=== PATIENT | female | born 1940 | race Hispanic/Latino ===

== ENCOUNTER 2017-12-10 16:41 | Inpatient (IN) | payer MEDICARE ==
[2017-12-10 20:06] LABS: Basophils # (Auto) 0.1 K/mm3 (0.0-0.1); Basophils % (Auto) 0.8 % (0.0-1.8); Eosinophils # (Auto) 0.2 K/mm3 (0.0-0.4); Hematocrit 34.8 % (30.3-42.9); Hemoglobin 11.4 gm/dl (10.1-14.3); Lymphocytes % (Auto) 26.1 % (13.4-35.0); Mean Corpuscular HGB Conc 33 % (30-34); Mean Corpuscular Hemoglobin 29 pg (28-32); Mean Corpuscular Volume 87 fl (79-97); Monocytes # (Auto) 0.4 K/mm3 (0.0-0.8); Monocytes % (Auto) 5.9 % (0.0-7.3); Red Blood Count 4.01 M/mm3 (3.65-5.03); Red Cell Distribution Width 14.4 % (13.2-15.2)
[2017-12-10 20:08] LABS: Platelet Count 152 K/mm3 (140-440)
[2017-12-10 20:12] LABS: BUN/Creatinine Ratio 39; Blood Urea Nitrogen 31 mg/dL (7-17); Calcium 9.6 mg/dL (8.4-10.2); Hemolysis Index 8
[2017-12-10 20:17] LABS: INR 0.92 (0.87-1.13)
[2017-12-10 20:29] LABS: Erythrocyte Sedimentation Rate 29 mm/Hr (0-20)
[2017-12-10] MEDS ORDERED: CLEOCIN 600 MG/50 mL 600 MG/50 ML BAG IV ONE (20:33)
[2017-12-10] MEDS ORDERED: PERCOCET 5/325 PO ONE (20:33)
--- NOTE | 2017-12-10 21:05 | Emergency Department Report ---
ED Extremity Problem HPI - General Chief complaint: Extremity Injury, Lower Stated complaint: RT LEG PAIN Time Seen by Provider: 12/10/17 19:15 Source: patient Mode of arrival: Wheelchair Limitations: No Limitations - History of Present Illness Initial comments: 77-year-old female with a past medical history diabetes, chronic leg ulcer, previous CVA, GERD, and CAD with stent to hospital complains of pain to right chronic leg ulcer. Patient has had a right lateral distal leg ulcer for the past 2 years. Patient was receiving wound care at home via home health nurse 3- 4 times a week. This service was discontinued by her insurance company and for the past week patient has been dressing the wound herself. She accidentally bumped her leg resulting in significant pain not improved with her home medication. Patient states she has noticed a mild odorous smell to the wound for at least 3 weeks. She denies fever or persistent hyperglycemia. - Related Data Home Medications Medication Instructions Recorded Confirmed Last Taken Aspirin [Aspirin BABY CHEW TAB] 81 mg PO QDAY 09/06/14 12/10/17 12/10/17 Insulin NPH/Regular [Novolin 70/30] 22 units SUB-Q QPM 09/06/14 12/10/17 Insulin NPH/Regular [Novolin 70/30] 26 units SUB-Q QAM 09/06/14 12/10/17 Levothyroxine [Synthroid] 75 mcg PO QDAY 09/06/14 12/10/17 12/10/17 Lisinopril [Zestril TAB] 5 mg PO QDAY 09/06/14 12/10/17 12/10/17 Simvastatin 20 mg PO QDAY 09/06/14 12/10/17 12/10/17 Previous Rx's Medication Instructions Recorded Last Taken Type Ranitidine HCl [Ranitidine] 300 mg PO QPM #30 tablet 09/06/14 12/10/17 Rx Allergies Allergy/AdvReac Type Severity Reaction Status Date / Time latex Allergy Itching Verified 12/10/17 17:03 ED Review of Systems ROS: Stated complaint: RT LEG PAIN Other details as noted in HPI Comment: All other systems reviewed and negative Other: Constitutional: No fevers chills Eyes: No eye pain visual changes ENT: No ear pain or throat pain Neck: Denies pain Respiratory: Denies cough wheezing shortness of breath Cardiovascular: Denies chest pain, palpitations, syncope GI: Denies abdominal pain, nausea, vomiting, diarrhea : Denies dysuria, urinary frequency, or urgency Musculoskeletal: Denies back pain, joint swelling Skin: as per hpi Neurologic: Denies headache, numbness, weakness Psychiatric: Denies suicidal ideation, hallucinations ED Past Medical Hx - Past Medical History Hx Hypertension: Yes Hx CVA: Yes ("LIGHT STROKE") Hx Diabetes: Yes Hx GERD: Yes Hx Arthritis: Yes Additional medical history: "HEART PT" - Surgical History Hx Coronary Stent: Yes Hx Cholecystectomy: Yes Additional Surgical History: HERNIA REPAIR. HYSTERECTOMY - Social History Smoking Status: Never Smoker Substance Use Type: None - Medications Home Medications: Home Medications Medication Instructions Recorded Confirmed Last Taken Type Aspirin [Aspirin BABY CHEW TAB] 81 mg PO QDAY 09/06/14 12/10/17 12/10/17 History Insulin NPH/Regular [Novolin 70/30] 22 units SUB-Q QPM 09/06/14 12/10/17 History Insulin NPH/Regular [Novolin 70/30] 26 units SUB-Q QAM 09/06/14 12/10/17 History Levothyroxine [Synthroid] 75 mcg PO QDAY 09/06/14 12/10/17 12/10/17 History Lisinopril [Zestril TAB] 5 mg PO QDAY 09/06/14 12/10/17 12/10/17 History Ranitidine HCl [Ranitidine] 300 mg PO QPM #30 tablet 09/06/14 12/10/17 12/10/17 Rx Simvastatin 20 mg PO QDAY 09/06/14 12/10/17 12/10/17 History ED Physical Exam - General Limitations: No Limitations - Other Other exam information: General: No limitations, patient is alert in no acute distress Head exam: Atraumatic, normocephalic Eyes exam: Normal appearance, ENT: Moist mucous membrane, normal oropharynx Neck exam: Normal inspection, full range of motion, no meningismus nontender Respiratory exam: Clear to auscultation bilateral, no wheezes, rales, crackles Cardiovascular: Normal rate and rhythm, normal heart sounds Abdomen: Soft, nondistended, and nontender, with normal bowel sounds, no rebound, or guarding Extremity: Right lateral distal leg ulcer. Bilateral edema Back: Normal Inspection, full range of motion, no tenderness Neurologic: Alert, oriented x3, cranial nerves intact, no motor or sensory deficit Psychiatric: normal affect, normal mood Skin: Right lateral distal right leg ulceration stays to 8 x 5 cm in size with greenish malodorous exudate and surrounding erythema ED Course Vital Signs 12/10/17 12/10/17 12/10/17 17:02 21:00 22:12 Temperature 98.1 F 97.7 F Pulse Rate 86 67 Respiratory 22 16 16 Rate Blood Pressure 149/78 Blood Pressure 154/69 [Left] O2 Sat by Pulse 99 100 100 Oximetry 12/10/17 23:50 Temperature Pulse Rate 82 Respiratory 16 Rate Blood Pressure Blood Pressure 132/60 [Left] O2 Sat by Pulse Oximetry ED Medical Decision Making - Lab Data Result diagrams: 12/10/17 19:40 12/10/17 19:40 Lab Results 12/10/17 12/10/17 12/10/17 Range/Units 19:40 19:40 19:40 WBC 7.5 (4.5-11.0) K/mm3 RBC 4.01 (3.65-5.03) M/mm3 Hgb 11.4 (10.1-14.3) gm/dl Hct 34.8 (30.3-42.9) % MCV 87 (79-97) fl MCH 29 (28-32) pg MCHC 33 (30-34) % RDW 14.4 (13.2-15.2) % Plt Count 152 (140-440) K/mm3 Lymph % (Auto) 26.1 (13.4-35.0) % [place] % (Auto) 5.9 (0.0-7.3) % Eos % (Auto) 2.0 (0.0-4.3) % Baso % (Auto) 0.8 (0.0-1.8) % Lymph # 2.0 (1.2-5.4) K/mm3 [place] # 0.4 (0.0-0.8) K/mm3 Eos # 0.2 (0.0-0.4) K/mm3 Baso # 0.1 (0.0-0.1) K/mm3 Seg Neutrophils % 65.2 (40.0-70.0) % Seg Neutrophils # 4.9 (1.8-7.7) K/mm3 ESR 29 (0-20) mm/Hr PT 12.8 (12.2-14.9) Sec. INR 0.92 (0.87-1.13) APTT 32.0 (24.2-36.6) Sec. Sodium 138 (137-145) mmol/L Potassium 4.9 (3.6-5.0) mmol/L Chloride 101.8 (98-107) mmol/L Carbon Dioxide 23 (22-30) mmol/L Anion Gap 18 mmol/L BUN 31 H (7-17) mg/dL Creatinine 0.8 (0.7-1.2) mg/dL Estimated GFR > 60 ml/min BUN/Creatinine Ratio 39 % Glucose 183 H (65-100) mg/dL Calcium 9.6 (8.4-10.2) mg/dL - Differential Diagnosis cellulitis, osteomyelitis, chronic ulcer, Critical care attestation.: If time is entered above; I have spent that time in minutes in the direct care of this critically ill patient, excluding procedure time. ED Disposition Clinical Impression: Diabetic ulcer of right lower leg, Infected ulcer of skin, Diabetes Disposition: OP ADMIT IP TO THIS HOSP Is pt being admited?: Yes Condition: Stable Time of Disposition: 21:24 (Dr Aguero/hosp)
[2017-12-10] MEDS ORDERED: D50W (25GM) Syringe IV PRN (23:00)
[2017-12-10] MEDS ORDERED: ZOFRAN IV PRN (23:06)
[2017-12-10] MEDS ORDERED: HEPARIN ONE (23:38)
[2017-12-10] MEDS: HEPARIN SUB-Q SCH (23:49)
--- NOTE | 2017-12-11 04:54 | History and Physical Report ---
CHIEF COMPLAINT: Pain, ulceration, and drainage in the right leg. HISTORY OF PRESENT ILLNESS: The patient is a 77-year-old female with past history of diabetes mellitus and chronic ulcer on the right leg, who have been receiving home health care services with dressing of the wound about 3 to 4 times a week going on the long time, but the services was discontinued by the patient's insurance company for the past one week and the patient has been doing the dressing herself and also complained that noticed mild odorous smell coming from the wound, and then bumped her leg on an object with the wound becoming more prominent and painful. The patient presented to the Emergency Room. There is no history of fever or chills. No history of shortness of breath or chest pain. PAST MEDICAL HISTORY: Pertinent for diabetes mellitus and chronic leg ulcer, cerebrovascular accident, gastroesophageal reflux disease, also the patient has past medical history of hypertension, arthritis, some form of heart disease. PAST SURGICAL HISTORY: Pertinent for cholecystectomy, hernia repair, and hysterectomy. FAMILY HISTORY: Noncontributory. SOCIAL HISTORY: The patient does not smoke, does not drink alcohol, and does not use illicit drugs. MEDICATIONS: The patient is on aspirin 81 mg daily, insulin NPH, Novolin 70/30, 22 units at night and 26 units in the morning, Synthroid 75 mcg by mouth daily, lisinopril 5 mg by mouth daily, ranitidine 300 mg by mouth in the evening, and simvastatin 20 mg by mouth daily. The patient's home medications will be reconciled and started accordingly. ALLERGIES: The patient is allergic to LATEX. REVIEW OF SYSTEMS: CONSTITUTIONAL: There is no fever, no chills, no diaphoresis. HEENT: There is no headache or sore throat. CARDIOVASCULAR SYSTEM: There is no chest pain or orthopnea. RESPIRATORY SYSTEM: There is no shortness of breath or cough. GASTROINTESTINAL SYSTEM: There is no nausea, no vomiting, no abdominal pain, diarrhea, or constipation. NEUROLOGICAL SYSTEM: There is no numbness, no dizziness, no altered mental status. MUSCULOSKELETAL SYSTEM: There is no joint pain or swelling. DERMATOLOGIC SYSTEM: There is ulceration in the right lower leg area. GENITOURINARY SYSTEM: There is no dysuria, hematuria or flank pain. Rest of system review is normal. PHYSICAL EXAMINATION: GENERAL: At the time of exam, the patient was found to be alert and oriented x 3, and not in acute distress. VITAL SIGNS: Shows temperature of 97.7 degrees Fahrenheit, pulse of 82, respiration 16, blood pressure 132/60, O2 sat of 100% on room air. HEENT: Exam shows pupils equal, round, and reactive to light and accommodation. Extraocular muscles are intact. NECK: Supple with no JVD or carotid bruit. CARDIOVASCULAR SYSTEM: Showed normal first and second heart sounds with no gallops or murmurs. RESPIRATORY SYSTEM: Show good air entry on both sides of the lungs with no abdominal breath sounds. GASTROINTESTINAL SYSTEM: Show abdomen to be full, soft, and nontender with no organomegaly or rigidity. NEUROLOGIC: Exam shows no focal deficit. MUSCULOSKELETAL SYSTEM: Show no joint swelling or tenderness. DERMATOLOGIC SYSTEM: Show deep ulceration in the right lower leg area, also involving the right ankle, with no drainage seen in the resected area. GENITOURINARY SYSTEM: Show no costovertebral angle tenderness. PERTINENT LABORATORY STUDIES: The patient has CBC done that came back unremarkable. The patient's coagulation studies were unremarkable. Chemistry came back unremarkable. IMAGING STUDIES: There are no imaging studies reported on the patient's name at this time. DIAGNOSIS: Right leg diabetic ulcer. PLAN: The patient will be admitted to medical floor and we will have wound care team consult. The patient's diet will be consistent carbohydrate diet with low-sodium diet. The patient will be on Accu-Cheks before noon and at bedtime, followed by low-dose sliding scale using Humalog insulin. Deep venous thrombosis prophylaxis, with heparin 5000 units subcutaneous every 12 hours. The patient will be on intravenous morphine 2 mg every 4 hours as needed for pain and intravenous Zofran 4 mg every 8 hours for nausea. The patient will be on intravenous Zosyn 3.375 g every 8 hours. Further management of patient's diabetic ulcer will be undertaken by the wound care team. JOB# [id number] OCN/NTS
[2017-12-11] MEDS: SYNTHROID PO SCH (05:30)
[2017-12-11] MEDS ORDERED: ZOSYN/NS 3.375GM/50ML 3.375 GM/50 ML BAG IV SCH (06:00)
--- NOTE | 2017-12-11 07:55 | Progress Note ---
Assessment and Plan Assessment and plan: --Diabetic foot ulcer; Wound care, IV antibiotics, wound cultures, podiatry evaluation X-ray ankle, consider vascular consult --Type 2 diabetes mellitus; Accu-Chek sliding scale coverage ADA diet Long-acting insulin, check hemoglobin A1c --Hypothyroidism; stable on Synthroid --Hypertension; closely monitor blood pressures and adjust the medications as needed --Dyslipidemia; resume statin --DVT prophylaxis with Lovenox --Full code Closely monitor the patient and adjust management as needed History Interval history: Patient seen and examined medical records reviewed Admitted with nonhealing diabetic foot ulcer of the right leg Patient feels better no new complaints Vital signs reviewed Alert awake oriented 3 not in acute distress Hospitalist Physical - Constitutional Vitals: Temp Pulse Resp BP Pulse Ox 97.8 F 78 20 101/37 97 12/11/17 04:30 12/11/17 00:40 12/11/17 04:30 12/11/17 04:30 12/11/17 00:40 General appearance: Present: no acute distress, well-nourished, obese - EENT Eyes: Present: PERRL, EOM intact - Neck Neck: Present: supple, normal ROM - Respiratory Respiratory effort: normal Respiratory: negative: rales, rhonchi, wheezing - Cardiovascular Rhythm: regular Heart Sounds: Present: S1 & S2 - Extremities Extremities: no ischemia, No edema, abnormal (nonhealing diabetic foot ulcer) - Abdominal General gastrointestinal: soft, non-tender, non-distended, normal bowel sounds - Integumentary Integumentary: Present: clear, warm - Psychiatric Psychiatric: appropriate mood/affect, cooperative - Neurologic Neurologic: CNII-XII intact, moves all extremities Results - Labs CBC & Chem 7: 12/10/17 19:40 12/10/17 19:40 Labs: Laboratory Last Values WBC 7.5 K/mm3 (4.5-11.0) 12/10/17 19:40 RBC 4.01 M/mm3 (3.65-5.03) 12/10/17 19:40 Hgb 11.4 gm/dl (10.1-14.3) 12/10/17 19:40 Hct 34.8 % (30.3-42.9) 12/10/17 19:40 MCV 87 fl (79-97) 12/10/17 19:40 MCH 29 pg (28-32) 12/10/17 19:40 MCHC 33 % (30-34) 12/10/17 19:40 RDW 14.4 % (13.2-15.2) 12/10/17 19:40 Plt Count 152 K/mm3 (140-440) 12/10/17 19:40 Lymph % (Auto) 26.1 % (13.4-35.0) 12/10/17 19:40 [place] % (Auto) 5.9 % (0.0-7.3) 12/10/17 19:40 Eos % (Auto) 2.0 % (0.0-4.3) 12/10/17 19:40 Baso % (Auto) 0.8 % (0.0-1.8) 12/10/17 19:40 Lymph # 2.0 K/mm3 (1.2-5.4) 12/10/17 19:40 [place] # 0.4 K/mm3 (0.0-0.8) 12/10/17 19:40 Eos # 0.2 K/mm3 (0.0-0.4) 12/10/17 19:40 Baso # 0.1 K/mm3 (0.0-0.1) 12/10/17 19:40 Seg Neutrophils % 65.2 % (40.0-70.0) 12/10/17 19:40 Seg Neutrophils # 4.9 K/mm3 (1.8-7.7) 12/10/17 19:40 ESR 29 mm/Hr (0-20) 12/10/17 19:40 PT 12.8 Sec. (12.2-14.9) 12/10/17 19:40 INR 0.92 (0.87-1.13) 12/10/17 19:40 APTT 32.0 Sec. (24.2-36.6) 12/10/17 19:40 Sodium 138 mmol/L (137-145) 12/10/17 19:40 Potassium 4.9 mmol/L (3.6-5.0) 12/10/17 19:40 Chloride 101.8 mmol/L (98-107) 12/10/17 19:40 Carbon Dioxide 23 mmol/L (22-30) 12/10/17 19:40 Anion Gap 18 mmol/L 12/10/17 19:40 BUN 31 mg/dL (7-17) H 12/10/17 19:40 Creatinine 0.8 mg/dL (0.7-1.2) 12/10/17 19:40 Estimated GFR > 60 ml/min 12/10/17 19:40 BUN/Creatinine Ratio 39 % 12/10/17 19:40 Glucose 183 mg/dL (65-100) H 12/10/17 19:40 POC Glucose 150 (70-105) H 12/11/17 07:28 Calcium 9.6 mg/dL (8.4-10.2) 12/10/17 19:40
[2017-12-11] MEDS: HumuLIN R SUB-Q SCH ×4 (08:36→22:24)
[2017-12-11] MEDS: BABY ASPIRIN PO SCH ×2 (08:36→10:00)
[2017-12-11] MEDS: MORPHINE IV PRN ×2 (08:37→22:24)
[2017-12-11] MEDS: HEPARIN SUB-Q SCH ×3 (08:37→22:23)
[2017-12-11] MEDS: ZESTRIL PO SCH (10:00)
[2017-12-11] MEDS ORDERED: NON-FORMULARY (Simvastatin [Simvastatin] 20 MG) PO SCH (10:00)
[2017-12-11] MEDS: ZOSYN/NS 4.5GM/100ML 4.5 GM/100 ML VIAL IV SCH ×2 (13:05→22:20)
[2017-12-11] MEDS ORDERED: VANCOMYCIN PHARMACY TO DOSE IV SCH (15:00)
[2017-12-11] MEDS ORDERED: VANCOMYCIN/NS 1 GM/250 ML 1 GM/250 ML BAG IV SCH (15:00)
[2017-12-11] MEDS ORDERED: VANCOMYCIN 2,000 MG in NACL 0.9% 500 ML 500 ML IV ONE (16:00)
--- NOTE | 2017-12-11 16:22 | XRay Report ---
FINAL REPORT EXAM: XR ANKLE 3+V RT HISTORY: nonhealing Diabetic wound Rt ankle TECHNIQUE: AP, lateral, and oblique views of the right ankle PRIORS: None. FINDINGS: No air in the soft tissues is present. The no focal cortical erosion or lucency is seen to suggest osteomyelitis. If this is of high clinical concern, MRI or bone scan would be recommended. There is no evidence for acute fracture or dislocation. Soft tissue swelling around the ankle is present. No radiopaque foreign bodies are seen. Vascular calcifications are present. The ankle mortise is intact. Bony mineralization is normal. Severe joint space narrowing at the tarsal joints and tarsometatarsal joints is seen. Spurring off the plantar and posterior aspects of the calcaneus is seen. IMPRESSION: No definite radiographic evidence for osteomyelitis. 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
[2017-12-11] MEDS: PEPCID PO SCH (17:58)
[2017-12-11] MEDS ORDERED: NON-FORMULARY (Ranitidine Hcl [Zantac 300 Mg Tab] 300 MG) PO SCH (18:00)
--- NOTE | 2017-12-11 18:38 | Event Note ---
Date: 12/11/17 Patient had an episode of hypoglycemia, or dangerous given Closely monitor blood sugars, DC long-acting 70/30 insulin Sliding scale coverage, encourage oral nutrition
[2017-12-11] MEDS: PRAVACHOL PO SCH (22:23)
[2017-12-12] MEDS ORDERED: VANCOMYCIN 1,500 MG in NACL 0.9% 500 ML 500 ML IV SCH (04:00)
[2017-12-12 05:14] LABS: Basophils % (Auto) 0.7 % (0.0-1.8); Eosinophils # (Auto) 0.1 K/mm3 (0.0-0.4); Eosinophils % (Auto) 2.2 % (0.0-4.3); Hematocrit 31.5 % (30.3-42.9); Hemoglobin 10.5 gm/dl (10.1-14.3); Lymphocytes # (Auto) 1.3 K/mm3 (1.2-5.4); Lymphocytes % (Auto) 32.2 % (13.4-35.0); Mean Corpuscular HGB Conc 33 % (30-34); Mean Corpuscular Hemoglobin 28 pg (28-32); Mean Corpuscular Volume 85 fl (79-97); Monocytes # (Auto) 0.3 K/mm3 (0.0-0.8); Monocytes % (Auto) 7.4 % (0.0-7.3); Platelet Count 124 K/mm3 (140-440); Red Blood Count 3.71 M/mm3 (3.65-5.03)
[2017-12-12 05:26] LABS: C-Reactive Protein 1.4 mg/dL (0.00-1.30); Calcium 8.7 mg/dL (8.4-10.2)
[2017-12-12] MEDS: ZOSYN/NS 4.5GM/100ML 4.5 GM/100 ML VIAL IV SCH ×2 (06:15→13:14)
[2017-12-12] MEDS: SYNTHROID PO SCH (06:18)
[2017-12-12] MEDS: HumuLIN R SUB-Q SCH ×3 (08:29→18:54)
[2017-12-12] MEDS: HEPARIN SUB-Q SCH ×3 (08:34→22:00)
[2017-12-12] MEDS: BABY ASPIRIN PO SCH ×2 (08:34→10:10)
--- NOTE | 2017-12-12 08:58 | Progress Note ---
Assessment and Plan Assessment and plan: --Diabetic foot ulcer; Wound care, IV antibiotics, wound cultures, podiatry evaluation X-ray ankle findings not consistent with osteomyelitis, soft tissue swelling Continue current antibiotics, follow cultures, wound care Consult wound care surgeon Dr. Moody for possible debridement and surgical intervention --Type 2 diabetes mellitus; Accu-Chek sliding scale coverage ADA diet Long-acting insulin, check hemoglobin A1c --Hypothyroidism; stable on Synthroid --Hypertension; closely monitor blood pressures and adjust the medications as needed --Dyslipidemia; resume statin --DVT prophylaxis with Lovenox --Full code --DC planning. Case management Closely monitor the patient and adjust management as needed Plan of care reviewed with the patient and her nurse History Interval history: Patient seen and examined medical records reviewed Complains of mild pain in her ankle, x-ray did not reveal any evidence of osteomyelitis We'll check vascular ultrasound for peripheral vascular disease, consider vascular evaluation if needed Patient alert awake oriented 3 Not in acute distress Vital signs reviewed Hospitalist Physical - Constitutional Vitals: Temp Pulse Resp BP Pulse Ox 98.9 F 75 20 120/50 94 12/12/17 08:24 12/12/17 08:24 12/12/17 08:24 12/12/17 08:24 12/12/17 08:24 General appearance: Present: no acute distress, well-nourished, obese - EENT Eyes: Present: PERRL, EOM intact - Neck Neck: Present: supple, normal ROM - Respiratory Respiratory effort: normal Respiratory: bilateral: diminished, negative: rales, rhonchi, wheezing - Cardiovascular Rhythm: regular Heart Sounds: Present: S1 & S2 - Extremities Extremities: no ischemia, abnormal (right ankle dressing) - Abdominal General gastrointestinal: soft, non-tender, non-distended, normal bowel sounds - Integumentary Integumentary: Present: clear, warm - Psychiatric Psychiatric: appropriate mood/affect, cooperative - Neurologic Neurologic: CNII-XII intact, moves all extremities Results - Labs CBC & Chem 7: 12/12/17 04:45 12/12/17 04:45 Labs: Laboratory Last Values WBC 4.0 K/mm3 (4.5-11.0) L 12/12/17 04:45 RBC 3.71 M/mm3 (3.65-5.03) 12/12/17 04:45 Hgb 10.5 gm/dl (10.1-14.3) 12/12/17 04:45 Hct 31.5 % (30.3-42.9) 12/12/17 04:45 MCV 85 fl (79-97) 12/12/17 04:45 MCH 28 pg (28-32) 12/12/17 04:45 MCHC 33 % (30-34) 12/12/17 04:45 RDW 14.0 % (13.2-15.2) 12/12/17 04:45 Plt Count 124 K/mm3 (140-440) L 12/12/17 04:45 Lymph % (Auto) 32.2 % (13.4-35.0) 12/12/17 04:45 [place] % (Auto) 7.4 % (0.0-7.3) H 12/12/17 04:45 Eos % (Auto) 2.2 % (0.0-4.3) 12/12/17 04:45 Baso % (Auto) 0.7 % (0.0-1.8) 12/12/17 04:45 Lymph # 1.3 K/mm3 (1.2-5.4) 12/12/17 04:45 [place] # 0.3 K/mm3 (0.0-0.8) 12/12/17 04:45 Eos # 0.1 K/mm3 (0.0-0.4) 12/12/17 04:45 Baso # 0.0 K/mm3 (0.0-0.1) 12/12/17 04:45 Seg Neutrophils % 57.5 % (40.0-70.0) 12/12/17 04:45 Seg Neutrophils # 2.3 K/mm3 (1.8-7.7) 12/12/17 04:45 ESR 29 mm/Hr (0-20) 12/10/17 19:40 PT 12.8 Sec. (12.2-14.9) 12/10/17 19:40 INR 0.92 (0.87-1.13) 12/10/17 19:40 APTT 32.0 Sec. (24.2-36.6) 12/10/17 19:40 Sodium 140 mmol/L (137-145) 12/12/17 04:45 Potassium 4.5 mmol/L (3.6-5.0) 12/12/17 04:45 Chloride 105.6 mmol/L (98-107) 12/12/17 04:45 Carbon Dioxide 23 mmol/L (22-30) 12/12/17 04:45 Anion Gap 16 mmol/L 12/12/17 04:45 BUN 23 mg/dL (7-17) H 12/12/17 04:45 Creatinine 1.0 mg/dL (0.7-1.2) 12/12/17 04:45 Estimated GFR 53 ml/min 12/12/17 04:45 BUN/Creatinine Ratio 23 % 12/12/17 04:45 Glucose 129 mg/dL (65-100) H 12/12/17 04:45 POC Glucose 201 (70-105) H 12/12/17 07:54 Calcium 8.7 mg/dL (8.4-10.2) 12/12/17 04:45 C-Reactive Protein 1.40 mg/dL (0.00-1.30) H 12/12/17 04:45
[2017-12-12] MEDS: ZESTRIL PO SCH (10:10)
[2017-12-12] MEDS: PEPCID PO SCH (18:38)
[2017-12-13] MEDS: ZOSYN/NS 4.5GM/100ML 4.5 GM/100 ML VIAL IV SCH ×4 (02:02→22:49)
[2017-12-13] MEDS: HumuLIN R SUB-Q SCH ×5 (02:15→22:50)
[2017-12-13] MEDS ORDERED: VANCOMYCIN 1,500 MG in NACL 0.9% 500 ML 500 ML IV SCH (06:00)
[2017-12-13] MEDS ORDERED: BENADRYL PO PRN (08:35)
[2017-12-13] MEDS: BABY ASPIRIN PO SCH (09:10)
[2017-12-13] MEDS: HEPARIN SUB-Q SCH ×2 (09:13→22:50)
[2017-12-13] MEDS: ZESTRIL PO SCH (09:13)
--- NOTE | 2017-12-13 09:18 | Consultation ---
History of Present Illness Consult date: 12/13/17 Reason for consult: other (Right leg ulcer) - History of present illness History of present illness: 77 yo diabetic female with right leg ulcer. She is a poor historian. No h/o heart disease, claudication or DVT. Past History Past Medical History: diabetes, hypertension, hyperlipidemia, hypothyroidism Medications and Allergies Allergies Allergy/AdvReac Type Severity Reaction Status Date / Time latex Allergy Itching Verified 12/10/17 17:03 Home Medications Medication Instructions Recorded Confirmed Last Taken Type Aspirin [Aspirin BABY CHEW TAB] 81 mg PO QDAY 09/06/14 12/10/17 12/10/17 History Insulin NPH/Regular [Novolin 70/30] 22 units SUB-Q QPM 09/06/14 12/10/17 History Insulin NPH/Regular [Novolin 70/30] 26 units SUB-Q QAM 09/06/14 12/10/17 History Levothyroxine [Synthroid] 75 mcg PO QDAY 09/06/14 12/10/17 12/10/17 History Lisinopril [Zestril TAB] 5 mg PO QDAY 09/06/14 12/10/17 12/10/17 History Ranitidine HCl [Ranitidine] 300 mg PO QPM #30 tablet 09/06/14 12/10/17 12/10/17 Rx Simvastatin 20 mg PO QDAY 09/06/14 12/10/17 12/10/17 History Active Meds: Active Medications Aspirin (Baby Aspirin) 81 mg PO QDAY COUNT INCLUDES THE [facility] Last Admin: 12/13/17 09:10 Dose: 81 mg Dextrose (D50w (25gm) Syringe) 50 ml IV PRN PRN PRN Reason: Hypoglycemia Diphenhydramine HCl (Benadryl) 25 mg PO Q6H PRN PRN Reason: Itching Famotidine (Pepcid) 40 mg PO QPM COUNT INCLUDES THE [facility] Last Admin: 12/12/17 18:38 Dose: 40 mg Heparin Sodium (Porcine) (Heparin) 5,000 unit SUB-Q Q12HR COUNT INCLUDES THE [facility] Last Admin: 12/12/17 22:00 Dose: 5,000 unit Piperacillin Sod/Tazobactam Sod (Zosyn/Ns 4.5gm/100ml) 4.5 gm in 100 mls @ 200 mls/hr IV Q8HR COUNT INCLUDES THE [facility] Last Admin: 12/13/17 02:02 Dose: 200 mls/hr Vancomycin HCl 1,500 mg/ (Sodium Chloride) 515 mls @ 333.333 mls/hr IV Q24H COUNT INCLUDES THE [facility] Last Admin: 12/13/17 06:39 Dose: 333.333 mls/hr Insulin Human Isoph/Insulin Regular (Humulin 70/30) 6 unit SUB-Q BIDDIAB COUNT INCLUDES THE [facility] Last Admin: 12/13/17 09:01 Dose: 6 unit Insulin Human Regular (Humulin R) 0 units SUB-Q AC COUNT INCLUDES THE [facility]; Protocol Last Admin: 12/13/17 09:00 Dose: 2 units Insulin Human Regular (Humulin R) 0 units SUB-Q QHS COUNT INCLUDES THE [facility]; Protocol Last Admin: 12/13/17 02:15 Dose: Not Given Levothyroxine Sodium (Synthroid) 75 mcg PO QDAY@0600 COUNT INCLUDES THE [facility] Last Admin: 12/12/17 06:18 Dose: 75 mcg Lisinopril (Zestril) 5 mg PO QDAY COUNT INCLUDES THE [facility] Last Admin: 12/12/17 10:10 Dose: Not Given Morphine Sulfate (Morphine) 2 mg IV Q4H PRN PRN Reason: Pain, Moderate (4-6) Last Admin: 12/11/17 22:24 Dose: 2 mg Ondansetron HCl (Zofran) 4 mg IV Q8H PRN PRN Reason: Nausea And Vomiting Pravastatin Sodium (Pravachol) 40 mg PO QHS COUNT INCLUDES THE [facility] Last Admin: 12/11/17 22:23 Dose: 40 mg Vancomycin HCl (Vancomycin Pharmacy To Dose) 1 each IV PKCONSULT COUNT INCLUDES THE [facility] Review of Systems All systems: negative (none) Exam Vital Signs Temp Pulse Resp BP Pulse Ox 98.1 F 86 22 149/78 99 12/10/17 17:02 12/10/17 17:02 12/10/17 17:02 12/10/17 17:02 12/10/17 17:02 - General physical appearance Positive: well developed, well nourished, no distress - Eyes Positive: PERRL, normal occular movement - ENT Positive: normal pinna, normal nares, normal mucosa, no hearing loss, no congestion - Neck Positive: no masses, no bruits, trachea midline, no venous distension - Respiratory Positive: normal expansion, normal respiratory effort, clear to auscultation - Cardiovascular Rhythm: regular Heart Sounds: Present: S1 & S2. Absent: rub, click - Extremities Extremities: abnormal (There is a 6 X 5 X 1 cm ulcer along the right postero- lateral leg. This is fairly clean. The right DP pulse is 2+ and the right PT pulse is non-palpable.) - Breasts Breasts: deferred - Abdomen Abdomen: Present: soft, bowel sounds normal. Absent: tender, distended Hernia: none - Genitourinary Female Genitourinary: deferred - Integumentary other (See extremities.) - Neurologic Neurologic: alert and oriented to time, place and person, motor strength and sensation are grossly intact - Musculoskeletal normal gait, normal posture - Psychiatric Psychiatric: appropriate mood/affect, intact judgment & insight Results - Labs 12/12/17 04:45 12/12/17 04:45 Abnormal lab results 12/12/17 12/12/17 12/12/17 Range/Units 12:27 16:06 22:58 POC Glucose 198 H 119 H 153 H (70-105) 12/13/17 Range/Units 07:39 POC Glucose 154 H (70-105) Assessment and Plan - Patient Problems (1) Diabetic ulcer of right lower leg Current Visit: Yes Status: Acute Plan to address problem: 1) Venous dopplers, RLE 2) Wound care consult 3) Keep RLE elevated on 2 pillows at all times 4) Check prealbumin 5) Can f/u in Wound clinic
[2017-12-13] MEDS: MORPHINE IV PRN (09:23)
--- NOTE | 2017-12-13 09:23 | Progress Note ---
Assessment and Plan Assessment and plan: --Diabetic foot ulcer; Wound care, IV antibiotics, wound cultures, podiatry evaluation X-ray ankle findings not consistent with osteomyelitis, soft tissue swelling Continue current antibiotics, follow cultures, wound care Consult wound care surgeon Dr. Moody for possible debridement and surgical intervention --Type 2 diabetes mellitus; Accu-Chek sliding scale coverage ADA diet Long-acting insulin, check hemoglobin A1c --Hypothyroidism; stable on Synthroid --Hypertension; closely monitor blood pressures and adjust the medications as needed --Dyslipidemia; resume statin --DVT prophylaxis with Lovenox --Full code --DC planning. Case management Closely monitor the patient and adjust management as needed Plan of care reviewed with the patient and her nurse History Interval history: Since seen and examined medical records reviewed Patient complains of some itching Admitted with right ankle nonhealing wound On IV antibiotics Patient alert awake oriented 3 Not in acute distress Vital signs reviewed Cultures positive gram-negative rods Hospitalist Physical - Constitutional Vitals: Temp Pulse Resp BP Pulse Ox 97.4 F L 66 18 129/61 97 12/13/17 07:35 12/13/17 09:13 12/13/17 07:35 12/13/17 09:13 12/13/17 07:35 General appearance: Present: no acute distress, well-nourished, obese - EENT Eyes: Present: PERRL, EOM intact - Neck Neck: Present: supple, normal ROM - Respiratory Respiratory effort: normal Respiratory: negative: rales, rhonchi, wheezing - Cardiovascular Rhythm: regular Heart Sounds: Present: S1 & S2 - Extremities Extremities: abnormal (right leg and ankle nonhealing wound) Extremity abnormal: edema - Abdominal General gastrointestinal: soft, non-tender, non-distended, normal bowel sounds - Integumentary Integumentary: Present: clear, warm - Psychiatric Psychiatric: appropriate mood/affect, cooperative - Neurologic Neurologic: CNII-XII intact, moves all extremities Results - Labs CBC & Chem 7: 12/12/17 04:45 12/12/17 04:45 Labs: Laboratory Last Values WBC 4.0 K/mm3 (4.5-11.0) L 12/12/17 04:45 RBC 3.71 M/mm3 (3.65-5.03) 12/12/17 04:45 Hgb 10.5 gm/dl (10.1-14.3) 12/12/17 04:45 Hct 31.5 % (30.3-42.9) 12/12/17 04:45 MCV 85 fl (79-97) 12/12/17 04:45 MCH 28 pg (28-32) 12/12/17 04:45 MCHC 33 % (30-34) 12/12/17 04:45 RDW 14.0 % (13.2-15.2) 12/12/17 04:45 Plt Count 124 K/mm3 (140-440) L 12/12/17 04:45 Lymph % (Auto) 32.2 % (13.4-35.0) 12/12/17 04:45 [place] % (Auto) 7.4 % (0.0-7.3) H 12/12/17 04:45 Eos % (Auto) 2.2 % (0.0-4.3) 12/12/17 04:45 Baso % (Auto) 0.7 % (0.0-1.8) 12/12/17 04:45 Lymph # 1.3 K/mm3 (1.2-5.4) 12/12/17 04:45 [place] # 0.3 K/mm3 (0.0-0.8) 12/12/17 04:45 Eos # 0.1 K/mm3 (0.0-0.4) 12/12/17 04:45 Baso # 0.0 K/mm3 (0.0-0.1) 12/12/17 04:45 Seg Neutrophils % 57.5 % (40.0-70.0) 12/12/17 04:45 Seg Neutrophils # 2.3 K/mm3 (1.8-7.7) 12/12/17 04:45 ESR 29 mm/Hr (0-20) 12/10/17 19:40 PT 12.8 Sec. (12.2-14.9) 12/10/17 19:40 INR 0.92 (0.87-1.13) 12/10/17 19:40 APTT 32.0 Sec. (24.2-36.6) 12/10/17 19:40 Sodium 140 mmol/L (137-145) 12/12/17 04:45 Potassium 4.5 mmol/L (3.6-5.0) 12/12/17 04:45 Chloride 105.6 mmol/L (98-107) 12/12/17 04:45 Carbon Dioxide 23 mmol/L (22-30) 12/12/17 04:45 Anion Gap 16 mmol/L 12/12/17 04:45 BUN 23 mg/dL (7-17) H 12/12/17 04:45 Creatinine 1.0 mg/dL (0.7-1.2) 12/12/17 04:45 Estimated GFR 53 ml/min 12/12/17 04:45 BUN/Creatinine Ratio 23 % 12/12/17 04:45 Glucose 129 mg/dL (65-100) H 12/12/17 04:45 POC Glucose 154 (70-105) H 12/13/17 07:39 Calcium 8.7 mg/dL (8.4-10.2) 12/12/17 04:45 C-Reactive Protein 1.40 mg/dL (0.00-1.30) H 12/12/17 04:45
--- NOTE | 2017-12-13 12:32 | Consultation ---
History of Present Illness - Reason for Consult Consult date: 12/13/17 wound infection Requesting physician: JAMES MARTIN - History of Present Illness 77 years old female with history diabetes, chronic leg ulcer, previous CVA, GERD , and CAD; due to worsening pain at a chronic right leg ulcer, lateral calf. Ulcer developed 2 years ago. Patient was receiving wound care at home via home health nurse 3 times a week. This service was discontinued by her insurance company and for the past week patient has been dressing the wound herself. She accidentally bumped her leg resulting in significant pain not improved with her home medication. Patient states she has noticed a mild odorous drainage for at least 3 weeks. She denies fever or persistent hyperglycemia. In the ED, temp 98.1, HR 86, R 22, BP 149/78. WBC 7.5. Hg 11.4. Plat 152. Creat 0.8.Glu 183. Microbiology: Blood cultures: 12/11 ngtd Wound cultures: 12/11 Gnr and Beta hem Group G Current Antimicrobials: Zosyn Vancomycin Previous Antimicrobials: Past History Past Medical History: diabetes, hypertension, hyperlipidemia, hypothyroidism Past Surgical History: No surgical history Social history: no significant social history Family history: no significant family history Medications and Allergies Allergies Allergy/AdvReac Type Severity Reaction Status Date / Time latex Allergy Itching Verified 12/10/17 17:03 Home Medications Medication Instructions Recorded Confirmed Last Taken Type Aspirin [Aspirin BABY CHEW TAB] 81 mg PO QDAY 09/06/14 12/10/17 12/10/17 History Insulin NPH/Regular [Novolin 70/30] 22 units SUB-Q QPM 09/06/14 12/10/17 History Insulin NPH/Regular [Novolin 70/30] 26 units SUB-Q QAM 09/06/14 12/10/17 History Levothyroxine [Synthroid] 75 mcg PO QDAY 09/06/14 12/10/17 12/10/17 History Lisinopril [Zestril TAB] 5 mg PO QDAY 09/06/14 12/10/17 12/10/17 History Ranitidine HCl [Ranitidine] 300 mg PO QPM #30 tablet 09/06/14 12/10/17 12/10/17 Rx Simvastatin 20 mg PO QDAY 1212/10/17 12/10/17 History Active Meds: Active Medications Aspirin (Baby Aspirin) 81 mg PO QDAY [facility] Last Admin: 12/13/17 09:10 Dose: 81 mg Dextrose (D50w (25gm) Syringe) 50 ml IV PRN PRN PRN Reason: Hypoglycemia Diphenhydramine HCl (Benadryl) 25 mg PO Q6H PRN PRN Reason: Itching Last Admin: 12/13/17 09:22 Dose: 25 mg Famotidine (Pepcid) 40 mg PO QPM [facility] Last Admin: 12/12/17 18:38 Dose: 40 mg Heparin Sodium (Porcine) (Heparin) 5,000 unit SUB-Q Q12HR [facility] Last Admin: 12/13/17 09:13 Dose: 5,000 unit Piperacillin Sod/Tazobactam Sod (Zosyn/Ns 4.5gm/100ml) 4.5 gm in 100 mls @ 200 mls/hr IV Q8HR [facility] Last Admin: 12/13/17 02:02 Dose: 200 mls/hr Vancomycin HCl 1,500 mg/ (Sodium Chloride) 515 mls @ 333.333 mls/hr IV Q24H [facility] Last Admin: 12/13/17 06:39 Dose: 333.333 mls/hr Insulin Human Isoph/Insulin Regular (Humulin 70/30) 6 unit SUB-Q BIDDIAB [facility] Last Admin: 12/13/17 09:01 Dose: 6 unit Insulin Human Regular (Humulin R) 0 units SUB-Q AC [facility]; Protocol Last Admin: 12/13/17 11:47 Dose: Not Given Insulin Human Regular (Humulin R) 0 units SUB-Q QHS [facility]; Protocol Last Admin: 12/13/17 02:15 Dose: Not Given Levothyroxine Sodium (Synthroid) 75 mcg PO QDAY@0600 [facility] Last Admin: 12/12/17 06:18 Dose: 75 mcg Lisinopril (Zestril) 5 mg PO QDAY [facility] Last Admin: 12/13/17 09:13 Dose: 5 mg Morphine Sulfate (Morphine) 2 mg IV Q4H PRN PRN Reason: Pain, Moderate (4-6) Last Admin: 12/13/17 09:23 Dose: 2 mg Ondansetron HCl (Zofran) 4 mg IV Q8H PRN PRN Reason: Nausea And Vomiting Pravastatin Sodium (Pravachol) 40 mg PO QHS [facility] Last Admin: 12/11/17 22:23 Dose: 40 mg Vancomycin HCl (Vancomycin Pharmacy To Dose) 1 each IV PKCONSULT [facility] Physical Examination - Physical Exam Narrative exam: General appearance: Alert in NAD, conversant Eyes: anicteric sclerae, moist conjunctivae; no lid-lag; PERRLA HENT: Atraumatic; oropharynx clear with moist mucous membranes and no mucosal ulcerations/no oral thrush; normal hard and soft palate. Normal external ears. Neck: Trachea midline; supple, no thyromegaly or lymphadenopathy Lungs: CTA, with normal respiratory effort and no intercostal retractions CV: RRR, no murmurs Abdomen: Soft, non-tender; no masses or hepatosplenomegaly Extremities: leg lateral ulcer with slough and minimal greenish drainage Skin: Normal temperature, turgor and texture; no rash, ulcers or subcutaneous nodules Psych: Appropriate affect, alert and oriented to person, place and time. Neuro: alert and oriented x 3. Moving all extermities Lines: No CVL / PICC - Constitutional Vitals: Vital Signs Temp Pulse Resp BP Pulse Ox 97.4 F L 66 20 129/61 97 12/13/17 07:35 12/13/17 09:13 12/13/17 09:23 12/13/17 09:13 12/13/17 07:35 Temperature -Last 24 Hours Temperature 97.4 F Temperature 98.2 F Temperature 98.3 F Temperature 98.3 F Results - Labs CBC & Chem 7: 12/12/17 04:45 12/12/17 04:45 Labs: Abnormal lab results 12/12/17 12/12/17 12/13/17 Range/Units 16:06 22:58 07:39 POC Glucose 119 H 153 H 154 H (70-105) 12/13/17 Range/Units 11:18 POC Glucose 127 H (70-105) Assessment and Plan Assessment: 1) Right lateral leg chronic ulcer: infected. Likely venous in nature. Wound cx GNR x 2 and Strep G 2) DM Plan: -follow-up blood cultures and wound culture -stop vancomycin -continue zosyn -will determine IV vs PO antibiotics depending on isolate susceptibilities Thank you for your consultation, will follow up with you. Brooke Rivera MD Infectious Diseases Specialist [facility] ([facility]) [phone] O [phone]
[2017-12-13] MEDS: PEPCID PO SCH (17:49)
[2017-12-13] MEDS: PRAVACHOL PO SCH (22:50)
[2017-12-14] MEDS: MORPHINE IV PRN ×2 (01:52→23:13)
[2017-12-14] MEDS: ZOSYN/NS 4.5GM/100ML 4.5 GM/100 ML VIAL IV SCH (05:47)
[2017-12-14] MEDS: SYNTHROID PO SCH (05:48)
--- NOTE | 2017-12-14 07:51 | Progress Note ---
Assessment and Plan Assessment: 1) Right lateral leg chronic ulcer: infected. Likely venous in nature. -Wound cx GNR x 2 and Strep G 2) DM Plan: -follow-up blood cultures and wound culture -continue zosyn - day 4 -will determine IV vs PO antibiotics depending on isolate susceptibilities Thank you for your consultation, will follow up with you. Brooke Rivera MD Infectious Diseases Specialist [facility] ([facility]) M [phone] O [phone] Subjective Date of service: 12/14/17 Principal diagnosis: right leg ulcer Interval history: Feels better, still right leg burning pain. No fever. Microbiology: Blood cultures: 12/11 ngtd Wound cultures: 12/11 Gnr and Beta hem Group G Current Antimicrobials: Zosyn 12/11 Previous Antimicrobials: Vancomycin Objective - Exam Narrative Exam: General appearance: Alert in NAD, conversant Eyes: anicteric sclerae, moist conjunctivae; no lid-lag; PERRLA HENT: Atraumatic; oropharynx clear with moist mucous membranes and no mucosal ulcerations/no oral thrush; normal hard and soft palate. Normal external ears. Neck: Trachea midline; supple, no thyromegaly or lymphadenopathy Lungs: CTA, with normal respiratory effort and no intercostal retractions CV: RRR, no murmurs Abdomen: Soft, non-tender; no masses or hepatosplenomegaly Extremities: leg lateral ulcer with slough and minimal greenish drainage - no examined today Skin: Normal temperature, turgor and texture; no rash, ulcers or subcutaneous nodules Psych: Appropriate affect, alert and oriented to person, place and time. Neuro: alert and oriented x 3. Moving all extermities Lines: No CVL / PICC - Constitutional Vitals: Vital Signs Temp Pulse Resp BP Pulse Ox 97.5 F L 64 20 129/53 98 12/14/17 04:00 12/14/17 04:00 12/14/17 04:00 12/14/17 04:00 12/14/17 04:00 Temperature -Last 24 Hours Temperature 97.5 F Temperature 98.5 F Temperature 97.6 F - Labs CBC & Chem 7: 12/12/17 04:45 12/12/17 04:45 Labs: Abnormal lab results 12/13/17 12/13/17 12/13/17 Range/Units 07:39 11:18 16:19 POC Glucose 154 H 127 H 177 H (70-105) 12/13/17 Range/Units 21:46 POC Glucose 135 H (70-105)
[2017-12-14] MEDS: HumuLIN R SUB-Q SCH ×4 (08:42→23:15)
[2017-12-14] MEDS: BABY ASPIRIN PO SCH (09:26)
[2017-12-14] MEDS: HEPARIN SUB-Q SCH ×2 (09:26→23:15)
[2017-12-14] MEDS: ZESTRIL PO SCH (10:35)
[2017-12-14] MEDS: LEVAQUIN PO SCH (12:49)
--- NOTE | 2017-12-14 14:34 | Progress Note ---
Assessment and Plan - Patient Problems (1) Diabetic ulcer of right lower leg Current Visit: Yes Status: Acute Plan to address problem: 1) Elevation 2) Check venous dopplers 3) Local wound care 4) F/u in the [facility] Subjective Date of service: 12/14/17 Patient Reports: Positive: no new complaints Objective Vital Signs - 12hr 12/14/17 12/14/17 04:00 10:35 Temperature 97.5 F L Pulse Rate 64 66 Respiratory 20 Rate Blood Pressure 129/53 106/46 O2 Sat by Pulse 98 Oximetry - Integumentary other (Leg ulcer is without change.) - Labs 12/12/17 04:45 12/12/17 04:45 Prealbumin is 0.26. Venous dopplers are pending.
--- NOTE | 2017-12-14 16:54 | Progress Note ---
Assessment and Plan Assessment and plan: --Diabetic foot ulcer; Wound care, IV antibiotics, wound cultures, podiatry evaluation X-ray ankle findings not consistent with osteomyelitis, soft tissue swelling Continue current antibiotics, follow cultures, wound care Consult wound care surgeon Dr. Moody for possible debridement and surgical intervention --Type 2 diabetes mellitus; Accu-Chek sliding scale coverage ADA diet Long-acting insulin, check hemoglobin A1c --Hypothyroidism; stable on Synthroid --Hypertension; closely monitor blood pressures and adjust the medications as needed --Dyslipidemia; resume statin --DVT prophylaxis with Lovenox --Full code --DC planning. Case management Closely monitor the patient and adjust management as needed Plan of care reviewed with the patient and her nurse Hospitalist Physical - Constitutional Vitals: Temp Pulse Resp BP Pulse Ox 97.5 F L 66 20 106/46 98 12/14/17 04:00 12/14/17 10:35 12/14/17 04:00 12/14/17 10:35 12/14/17 04:00 General appearance: Present: no acute distress, well-nourished, obese Results - Labs CBC & Chem 7: 12/12/17 04:45 12/12/17 04:45 Labs: Laboratory Last Values WBC 4.0 K/mm3 (4.5-11.0) L 12/12/17 04:45 RBC 3.71 M/mm3 (3.65-5.03) 12/12/17 04:45 Hgb 10.5 gm/dl (10.1-14.3) 12/12/17 04:45 Hct 31.5 % (30.3-42.9) 12/12/17 04:45 MCV 85 fl (79-97) 12/12/17 04:45 MCH 28 pg (28-32) 12/12/17 04:45 MCHC 33 % (30-34) 12/12/17 04:45 RDW 14.0 % (13.2-15.2) 12/12/17 04:45 Plt Count 124 K/mm3 (140-440) L 12/12/17 04:45 Lymph % (Auto) 32.2 % (13.4-35.0) 12/12/17 04:45 [place] % (Auto) 7.4 % (0.0-7.3) H 12/12/17 04:45 Eos % (Auto) 2.2 % (0.0-4.3) 12/12/17 04:45 Baso % (Auto) 0.7 % (0.0-1.8) 12/12/17 04:45 Lymph # 1.3 K/mm3 (1.2-5.4) 12/12/17 04:45 [place] # 0.3 K/mm3 (0.0-0.8) 12/12/17 04:45 Eos # 0.1 K/mm3 (0.0-0.4) 12/12/17 04:45 Baso # 0.0 K/mm3 (0.0-0.1) 12/12/17 04:45 Seg Neutrophils % 57.5 % (40.0-70.0) 12/12/17 04:45 Seg Neutrophils # 2.3 K/mm3 (1.8-7.7) 12/12/17 04:45 ESR 29 mm/Hr (0-20) 12/10/17 19:40 PT 12.8 Sec. (12.2-14.9) 12/10/17 19:40 INR 0.92 (0.87-1.13) 12/10/17 19:40 APTT 32.0 Sec. (24.2-36.6) 12/10/17 19:40 Sodium 140 mmol/L (137-145) 12/12/17 04:45 Potassium 4.5 mmol/L (3.6-5.0) 12/12/17 04:45 Chloride 105.6 mmol/L (98-107) 12/12/17 04:45 Carbon Dioxide 23 mmol/L (22-30) 12/12/17 04:45 Anion Gap 16 mmol/L 12/12/17 04:45 BUN 23 mg/dL (7-17) H 12/12/17 04:45 Creatinine 1.0 mg/dL (0.7-1.2) 12/12/17 04:45 Estimated GFR 53 ml/min 12/12/17 04:45 BUN/Creatinine Ratio 23 % 12/12/17 04:45 Glucose 129 mg/dL (65-100) H 12/12/17 04:45 POC Glucose 127 (70-105) H 12/14/17 16:11 Calcium 8.7 mg/dL (8.4-10.2) 12/12/17 04:45 C-Reactive Protein 1.40 mg/dL (0.00-1.30) H 12/12/17 04:45 Prealbumin 0.260 g/L (0.200-0.400) 12/13/17 09:43
[2017-12-14] MEDS: PEPCID PO SCH (18:24)
[2017-12-14] MEDS: PRAVACHOL PO SCH ×2 (23:14→23:15)
[2017-12-15] MEDS: SYNTHROID PO SCH (06:33)
[2017-12-15] MEDS: HumuLIN R SUB-Q SCH ×2 (08:20→12:25)
--- NOTE | 2017-12-15 08:55 | Progress Note ---
Assessment and Plan Assessment: 1) Right lateral leg chronic ulcer: infected. Likely venous in nature. -Wound cx MDR Pseudomonas (resistant to zosyn, cefepime, sens to cipro) and Strep G 2) DM Plan: -Zosyn stopped yesterday -continue levaquin -upon discharge will do cipro 500 mg PO q12h and ceftin 500 mg po q12h total 10 days until 12/20 -continue wound care -contact isolation I am signing off Thank you for your consultation, will follow up with you. Brooke Rivera MD Infectious Diseases Specialist [facility] ([facility]) M [phone] O [phone] Subjective Date of service: 12/15/17 Principal diagnosis: right leg ulcer Interval history: Feels better, c/o headache. No fever. Microbiology: Blood cultures: 12/11 ngtd Wound cultures: 12/11 Pseudomonas and Beta hem Group G Current Antimicrobials: levaquin 12/14 Previous Antimicrobials: Vancomycin Zosyn 12/11 Objective - Exam Narrative Exam: General appearance: Alert in NAD, conversant Eyes: anicteric sclerae, moist conjunctivae; no lid-lag; PERRLA HENT: Atraumatic; oropharynx clear with moist mucous membranes and no mucosal ulcerations/no oral thrush; normal hard and soft palate. Normal external ears. Neck: Trachea midline; supple, no thyromegaly or lymphadenopathy Lungs: CTA, with normal respiratory effort and no intercostal retractions CV: RRR, no murmurs Abdomen: Soft, non-tender; no masses or hepatosplenomegaly Extremities: leg lateral ulcer with slough and minimal greenish drainage - no examined today Skin: Normal temperature, turgor and texture; no rash, ulcers or subcutaneous nodules Psych: Appropriate affect, alert and oriented to person, place and time. Neuro: alert and oriented x 3. Moving all extermities Lines: No CVL / PICC - Constitutional Vitals: Vital Signs Temp Pulse Resp BP Pulse Ox 97.9 F 68 20 116/42 99 12/15/17 04:31 12/15/17 04:31 12/15/17 04:31 12/15/17 04:31 12/15/17 04:31 Temperature -Last 24 Hours Temperature 97.9 F Temperature 98.5 F Temperature 97.8 F - Labs CBC & Chem 7: 12/12/17 04:45 12/12/17 04:45 Labs: Abnormal lab results 12/14/17 12/14/17 12/14/17 Range/Units 11:30 16:11 22:13 POC Glucose 149 H 127 H 147 H (70-105) 12/15/17 Range/Units 07:48 POC Glucose 162 H (70-105)
--- NOTE | 2017-12-15 09:17 | Vascular Lab Report ---
LOWER EXTREMITY ARTERIAL DUPLEX: REASON FOR EXAM: Right lower extremity ulcer. COMMENTS ON THE RIGHT: Biphasic waveforms are seen proximally. Biphasic waveforms are seen distally. No significant velocity gradients are identified. Scattered plaque is seen throughout. Findings are consistent with mildly abnormal perfusion. Findings are consistent with the ability to heal distal wounds. COMMENTS ON THE LEFT: Triphasic waveforms are seen proximally. Triphasic waveforms are seen distally. No significant velocity gradients are identified. Scattered plaque is seen throughout. Findings are consistent with normal perfusion. Findings are consistent with the ability to heal distal wounds. IMPRESSION: RIGHT: Essentially normal arterial flow. LEFT:Essentially normal arterial flow. Scattered plaque is seen throughout both lower extremities. Flow appears to be intact in the distal lower extremities. However, if the right lower extremity ulcer is unresponsive to wound care, further arterial evaluation might be appropriate.
[2017-12-15] MEDS: BABY ASPIRIN PO SCH (09:22)
[2017-12-15] MEDS: MORPHINE IV PRN (09:23)
--- NOTE | 2017-12-15 09:29 | Vascular Lab Report ---
LOWER EXTREMITY ARTERIAL DUPLEX: REASON FOR EXAM: Right lower extremity ulcer. COMMENTS ON THE RIGHT: Triphasic waveforms are seen proximally. Triphasic waveforms are seen distally. No significant velocity gradients are identified. Eccentric plaques is seen in the BUDGET CLERK. Scattered plaque is seen throughout. Findings are consistent with normal perfusion. Findings are consistent with the ability to heal distal wounds. COMMENTS ON THE LEFT: A limited study was done of the left leg arterial system. Triphasic waveforms are seen in the [place]. Flow velocities are within normal limits. IMPRESSION: RIGHT: Essentially normal arterial flow. LEFT:Essentially normal arterial flow.
[2017-12-15 09:32] VITALS: BP 125/59
[2017-12-15] MEDS: ZESTRIL PO SCH (09:32)
[2017-12-15] MEDS: HEPARIN SUB-Q SCH (09:32)
[2017-12-15] MEDS: LEVAQUIN PO SCH (12:54)
--- NOTE | 2017-12-15 14:57 | Discharge Summary ---
Providers - Providers Date of Admission: 12/10/17 22:57 Attending physician: LONA ZAPATA MD 12/11/17 06:58 Consult to Wound/ET Nurse [CONS] Routine Reason For Exam: wound eval 12/12/17 08:54 Consult to Physician [CONS] Routine Comment: spoke to dr. 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 Leija for possible debridement and surgical intervention --Type 2 diabetes mellitus; Accu-Chek sliding scale coverage ADA diet Long-acting insulin, check hemoglobin A1c --Hypothyroidism; stable on Synthroid --Hypertension; closely monitor blood pressures and adjust the medications as needed --Dyslipidemia; resume statin --DVT prophylaxis with Lovenox --Full code --DC planning. Case management Closely monitor the patient and adjust management as needed Plan of care reviewed with the patient and her nurse Disposition: DC/TX-06 HOME UNDER HOME [facility] Time spent for discharge: 33 minutes Core Measure Documentation - Palliative Care Palliative Care/ Comfort Measures: Not Applicable - Core Measures Any of the following diagnoses?: none Exam - Constitutional Vitals: Temp Pulse Resp BP Pulse Ox 97.9 F 71 20 125/59 98 12/15/17 09:26 12/15/17 09:32 12/15/17 09:26 12/15/17 09:32 12/15/17 09:26 General appearance: Present: no acute distress, well-nourished - EENT Eyes: Present: PERRL ENT: hearing intact, clear oral mucosa - Neck Neck: Present: supple, normal ROM - Respiratory Respiratory effort: normal Respiratory: bilateral: CTA - Cardiovascular Heart Sounds: Present: S1 & S2. Absent: rub, click - Extremities Extremities: pulses symmetrical, No edema Peripheral Pulses: within normal limits - Abdominal General gastrointestinal: Present: soft, non-tender, non-distended, normal bowel sounds Female genitourinary: Present: normal - Integumentary Integumentary: Present: clear, warm, dry - Musculoskeletal Musculoskeletal: gait normal, strength equal bilaterally - Psychiatric Psychiatric: appropriate mood/affect, intact judgment & insight - Neurologic Neurologic: CNII-XII intact, moves all extremities Plan Prescriptions: Insulin NPH/Regular [NovoLIN 70/30] 6 unit SUB-Q BIDDIAB #1 vial
--- NOTE | 2017-12-15 16:25 | Query-Ulcer ---
Greg Floresuigbmarichuy Date:__12/15/2017 Lithographer Helper/CDS:___Angeli Phone#:___[phone] Exercise your independent professional judgment when responding to query. Questions asked do not imply a particular answer is desired or expected. We greatly appreciate your clarification on this issue. Clinical Documentation States: 77 Year old female was admitted on 12/10/2017 due to worsening pain at a chronic right leg ulcer, lateral calf. Discharge summary states "--Diabetic foot ulcer." Please specify the stage below: [ ] Stage I (pre-ulcer skin changes limited to persistent focal erythema) [ ] Stage II (abrasion, blister, and partial thickness skin loss) [x ] Stage III (full thickness skin loss with subcutaneous necrosis/damage) [ ] Stage IV (necrosis of soft tissues through to underlying muscle, tendon, bone) [ ] Unstageable [ ] Unable to determine patient has a stage 3 venous ulcer Present on Admission: [x ] Yes (Y) [ ] Clinically undeterminable (W) [ ] No (N) Please also document response in your Progress Notes and/or Discharge Summary and indicate if the condition was present on admission. JUSTIN
== END 2017-12-15 18:10 | disposition home health service (06) | DRG 638 ==
LOC: ED 16:41 → 2B-ACE 22:57
PROVIDERS: ADMIT Internal Medicine; ATTEND Internal Medicine
DX: E11.621 Type 2 diabetes mellitus with foot ulcer (principal); L97.218 Non-pressure chronic ulcer of right calf with other specified severity; E11.622 Type 2 diabetes mellitus with other skin ulcer; E11.9 Type 2 diabetes mellitus without complications; Z88.8 Allergy status to other drugs, medicaments and biological substances; Z86.73 Personal history of transient ischemic attack (TIA), and cerebral infarction without residual deficits; K21.9 Gastro-esophageal reflux disease without esophagitis; I25.10 Atherosclerotic heart disease of native coronary artery without angina pectoris; Z79.82 Long term (current) use of aspirin; Z79.4 Long term (current) use of insulin; Z79.899 Other long term (current) drug therapy; Z90.710 Acquired absence of both cervix and uterus; Z90.49 Acquired absence of other specified parts of digestive tract; E03.9 Hypothyroidism, unspecified; E78.5 Hyperlipidemia, unspecified; L97.512 Non-pressure chronic ulcer of other part of right foot with fat layer exposed; I83.012 Varicose veins of right lower extremity with ulcer of calf
CPT/HCPCS: 36415; 80048; 82962; 84134; 85025; 85610; 85652; 85730; 86140; 87040; 87076; 87116; 87186; 93925; 96374; A9270-GY; G8978-GP; G8979-GP; G8980-GP; J1644; J1815; J2270; J2543; J3370; J7040

== ENCOUNTER 2019-08-25 18:22 | Emergency (ER) | payer MEDICARE ==
[2019-08-25 18:30] VITALS: BP 136/57
--- NOTE | 2019-08-25 18:30 | Event Note ---
ED Screening Note Date of service: 08/25/19 ED Screening Note: This initial assessment/diagnostic orders/clinical plan/treatment(s) is/are subject to change based on patients health status, clinical progression and re- assessment by fellow clinical providers in the ED. Further treatment and workup at subsequent clinical providers discretion. Patient/guardian urged not to elope from the ED as their condition may be serious if not clinically assessed and managed. Initial orders include: 78yo WF states that she fell earlier on her R hip this evening. She now has pain at her R hip.
--- NOTE | 2019-08-25 19:20 | XRay Report ---
XR PELVIS 2 VIEWS INDICATION / CLINICAL INFORMATION: Hip pain after fall COMPARISON: None available. FINDINGS: BONES / JOINT(S): No acute displaced fracture or dislocation. Left hip prosthesis without evidence of hardware loosening or failure. Advanced degenerative change of the visualized lower lumbar spine, mi ld degenerative change of both sacroiliac joints and pubic symphysis, and mild degenerative change of the right hip. SOFT TISSUES: No significant abnormality. ADDITIONAL FINDINGS: Multiple surgical clips overlying the lower abdomen, likely related to a prior h ernia repair. Signer Name: Sindhu Sanchez MD Signed: 08/25/2019 7:15 PM Workstation Name: [id number]
[2019-08-25 20:05] LABS: Basophils % (Auto) 0.7 % (0.0-1.8); Eosinophils # (Auto) 0.1 K/mm3 (0.0-0.4); Eosinophils % (Auto) 1.6 % (0.0-4.3); Hematocrit 37.6 % (30.3-42.9); Hemoglobin 12.6 gm/dl (10.1-14.3); Lymphocytes # (Auto) 1.8 K/mm3 (1.2-5.4); Lymphocytes % (Auto) 31.8 % (13.4-35.0); Mean Corpuscular HGB Conc 34 % (30-34); Mean Corpuscular Volume 88 fl (79-97); Monocytes # (Auto) 0.5 K/mm3 (0.0-0.8); Monocytes % (Auto) 8.4 % (0.0-7.3); Platelet Count 149 K/mm3 (140-440); Red Blood Count 4.26 M/mm3 (3.65-5.03); Red Cell Distribution Width 14.2 % (13.2-15.2)
--- NOTE | 2019-08-25 20:24 | Emergency Department Report ---
ED Fall HPI - General Chief Complaint: Fall Stated Complaint: R HIP PAIN Time Seen by Provider: 08/25/19 20:21 Source: patient, family Mode of arrival: Wheelchair - History of Present Illness MD Complaint: fall -: Gradual, Last night Fall From: standing When Fall Occurred: # days [employer] Fall Witnessed: yes, by family Place Fall Occurred: home Loss of Consciousness: none Prolonged Down Time?: no Symptoms Prior to Fall: lightheadedness Severity: severe Severity scale (0 -10): 9 Quality: aching Context: tripped/slipped Associated Symptoms: denies: headache, neck pain, numbness, weakness, chest paint, shortness of breath, abdominal pain, hematuria, lightheaded, vertigo, confusion - Related Data Home Medications Medication Instructions Recorded Confirmed Last Taken Aspirin [Aspirin BABY CHEW TAB] 81 mg PO QDAY 09/06/14 12/10/17 12/10/17 Levothyroxine [Synthroid] 75 mcg PO QDAY 09/06/14 12/10/17 12/10/17 Lisinopril [Zestril TAB] 5 mg PO QDAY 09/06/14 12/10/17 12/10/17 Simvastatin 20 mg PO QDAY 09/06/14 12/10/17 12/10/17 Previous Rx's Medication Instructions Recorded Last Taken Type raNITIdine HCl [Zantac 300 MG TAB] 300 mg PO QPM #30 tablet 09/06/14 12/10/17 Rx Cephalexin [Keflex] 500 mg PO BID #10 capsule 12/15/17 Unknown Rx Ciprofloxacin HCl [Ciprofloxacin 500 mg PO Q12HR #10 tab 12/15/17 Unknown Rx TAB] Insulin Lispro [HumaLOG VIAL] 0 units SQ AC #1 vial 12/15/17 Unknown Rx Insulin NPH/Regular [NovoLIN 70/30] 6 unit SUB-Q BIDDIAB #1 vial 12/15/17 Unknown Rx Allergies Allergy/AdvReac Type Severity Reaction Status Date / Time latex Allergy Itching Verified 12/10/17 17:03 ED Review of Systems ROS: Stated complaint: R HIP PAIN Other details as noted in HPI Constitutional: denies: chills, fever Respiratory: denies: cough, shortness of breath, wheezing Cardiovascular: denies: chest pain, palpitations, edema, syncope Gastrointestinal: denies: abdominal pain, nausea, vomiting Genitourinary: denies: hematuria Musculoskeletal: back pain. denies: joint swelling, arthralgia, myalgia Skin: denies: rash Neurological: denies: headache, weakness, numbness, paresthesias, confusion ED Past Medical Hx - Past Medical History Previous Medical History?: Yes Hx Hypertension: Yes Hx CVA: Yes ("LIGHT STROKE") Hx Heart Attack/AMI: Yes Hx Congestive Heart Failure: No Hx Diabetes: Yes Hx Pulmonary Embolism: No Hx GERD: Yes Hx Liver Disease: No Hx Renal Disease: No Hx Arthritis: Yes Hx Seizures: No Hx Kidney Stones: No Hx Asthma: No Hx COPD: No Hx Tuberculosis: No Hx Dementia: No Hx HIV: No Additional medical history: "HEART PT" - Surgical History Past Surgical History?: Yes Hx Coronary Stent: Yes Hx Pacemaker: No Hx Cholecystectomy: Yes Additional Surgical History: HERNIA REPAIR. HYSTERECTOMY - Family History Family history: hypertension - Social History Smoking Status: Never Smoker Substance Use Type: None - Medications Home Medications: Home Medications Medication Instructions Recorded Confirmed Last Taken Type Aspirin [Aspirin BABY CHEW TAB] 81 mg PO QDAY 09/06/14 12/10/17 12/10/17 History Levothyroxine [Synthroid] 75 mcg PO QDAY 09/06/14 12/10/17 12/10/17 History Lisinopril [Zestril TAB] 5 mg PO QDAY 09/06/14 12/10/17 12/10/17 History Simvastatin 20 mg PO QDAY 09/06/14 12/10/17 12/10/17 History raNITIdine HCl [Zantac 300 MG TAB] 300 mg PO QPM #30 tablet 09/06/14 12/10/17 12/10/17 Rx Cephalexin [Keflex] 500 mg PO BID #10 capsule 12/15/17 Unknown Rx Ciprofloxacin HCl [Ciprofloxacin 500 mg PO Q12HR #10 tab 12/15/17 Unknown Rx TAB] Insulin Lispro [HumaLOG VIAL] 0 units SQ AC #1 vial 12/15/17 Unknown Rx Insulin NPH/Regular [NovoLIN 70/30] 6 unit SUB-Q BIDDIAB #1 vial 12/15/17 Unknown Rx ED Physical Exam - General Limitations: No Limitations General appearance: alert, in no apparent distress - Head Head exam: Present: atraumatic, normocephalic - Eye Eye exam: Present: normal appearance, PERRL, EOMI - ENT ENT exam: Present: normal exam, normal orophraynx, mucous membranes moist - Neck Neck exam: Present: normal inspection, full ROM. Absent: tenderness - Respiratory Respiratory exam: Present: normal lung sounds bilaterally. Absent: respiratory distress, chest wall tenderness - Cardiovascular Cardiovascular Exam: Present: regular rate, normal rhythm, normal heart sounds - GI/Abdominal GI/Abdominal exam: Present: soft, normal bowel sounds. Absent: tenderness, guarding, rebound, rigid - Extremities Exam Extremities exam: Present: normal inspection, full ROM, normal capillary refill, other. Absent: tenderness, pedal edema, joint swelling, calf tenderness - Expanded Lower Extremity Exam Right Hip exam: Present: normal inspection, tenderness, pelvic stability. Absent: full ROM (. Range of motion to right hip due to chronic arthritis.), swelling, abrasion, laceration, ecchymosis, deformity, crepidus, dislocation, erythema, external rotation, internal rotation, shortening Upper Leg exam: Present: normal inspection, full ROM. Absent: tenderness, swelling, abrasion, laceration, ecchymosis, deformity, crepidus, dislocation, erythema Knee exam: Present: normal inspection, full ROM, full knee extension. Absent: tenderness, swelling, abrasion, laceration, ecchymosis, deformity, crepidus, dislocation, erythema, effusion Lower Leg exam: Present: normal inspection. Absent: full ROM, tenderness, swelling, abrasion, laceration, ecchymosis, deformity, crepidus, dislocation, erythema Ankle exam: Present: normal inspection, full ROM. Absent: tenderness, swelling, abrasion, laceration, crepidus, dislocation, erythema Foot/Toe exam: Present: normal inspection, full ROM. Absent: tenderness, swelling, abrasion, laceration, ecchymosis, deformity, crepidus, dislocation, erythema, amputation, puncture wound, foreign body, calcaneal tenderness, tenderness at base of 5th metatarsal, nail avulsion, subungual hematoma Neuro vascular tendon exam: Present: no vascular compromise. Absent: peroneal nerve deficit, significant pain with passive ROM of distal joint Gait: Positive: observed and limited by pain - Back Exam Back exam: Present: normal inspection, full ROM, other (ambulates but has minimal limping due to pain and right hip). Absent: tenderness, CVA tenderness (R), CVA tenderness (L), muscle spasm, paraspinal tenderness, vertebral tenderness, rash noted - Expanded Back Exam Expanded Back exam: Negative Straight Leg Raising: Left, Right - Neurological Exam Neurological exam: Present: alert, oriented X3, reflexes normal. Absent: motor sensory deficit - Psychiatric Psychiatric exam: Present: normal affect, normal mood - Skin Skin exam: Present: warm, dry, intact, normal color. Absent: rash ED Course Vital Signs 08/25/19 18:28 Temperature 97.4 F L Pulse Rate 75 Respiratory 20 Rate Blood Pressure 136/57 O2 Sat by Pulse 100 Oximetry - Reevaluation(s) Reevaluation #1: 08/25/19 20:40 Patient reports that she has pain but she does not want any pain medication because she is taking pain medication at home. She is able to ambulate but reports that she has pain to her right hip with ambulating. 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 ED Medical Decision Making - Lab Data Result diagrams: 08/25/19 19:38 08/25/19 19:38 Lab Results 08/25/19 08/25/19 Range/Units 19:38 19:38 WBC 5.8 (4.5-11.0) K/mm3 RBC 4.26 (3.65-5.03) M/mm3 Hgb 12.6 (10.1-14.3) gm/dl Hct 37.6 (30.3-42.9) % MCV 88 (79-97) fl MCH 30 (28-32) pg MCHC 34 (30-34) % RDW 14.2 (13.2-15.2) % Plt Count 149 (140-440) K/mm3 Lymph % (Auto) 31.8 (13.4-35.0) % Sebastian % (Auto) 8.4 H (0.0-7.3) % Eos % (Auto) 1.6 (0.0-4.3) % Baso % (Auto) 0.7 (0.0-1.8) % Lymph # 1.8 (1.2-5.4) K/mm3 Sebastian # 0.5 (0.0-0.8) K/mm3 Eos # 0.1 (0.0-0.4) K/mm3 Baso # 0.0 (0.0-0.1) K/mm3 Seg Neutrophils % 57.5 (40.0-70.0) % Seg Neutrophils # 3.3 (1.8-7.7) K/mm3 Sodium 137 (137-145) mmol/L Potassium 4.5 (3.6-5.0) mmol/L Chloride 100.6 (98-107) mmol/L Carbon Dioxide 20 L (22-30) mmol/L Anion Gap 21 mmol/L BUN 37 H (7-17) mg/dL Creatinine 0.9 (0.7-1.2) mg/dL Estimated GFR > 60 ml/min BUN/Creatinine Ratio 41 % Glucose 149 H (65-100) mg/dL Calcium 10.1 (8.4-10.2) mg/dL Total Bilirubin 0.40 (0.1-1.2) mg/dL AST 20 (5-40) units/L ALT 20 (7-56) units/L Alkaline Phosphatase 68 (35-129) units/L Total Protein 7.4 (6.3-8.2) g/dL Albumin 4.3 (3.9-5) g/dL Albumin/Globulin Ratio 1.4 % - Radiology Data Radiology results: report reviewed X-ray right hip dictated by radiologist and report reviewed by myself. Please see details below Findings [address] [address] XRay Report Signed Patient: KRISTEN RAMAN MR#: [id number] 3 : 1940 Acct:[id number] Age/Sex: 78 / F ADM Date: 08/25/19 Loc: ED Attending Dr: Ordering Physician: BRAYDON FRANKS PA-C Date of Service: 08/25/19 Procedure(s): XR pelvis 1-2V Accession Number(s): [id number] cc: BRAYDON FRANKS PA-C Fluoro Time In Minutes: XR PELVIS 2 VIEWS INDICATION / CLINICAL INFORMATION: Hip pain after fall COMPARISON: None available. FINDINGS: BONES / JOINT(S): No acute displaced fracture or dislocation. Left hip prosthesis without evidence of hardware loosening or failure. Advanced degenerative change of the visualized lower lumbar spine, mild degenerative change of both sacroiliac joints and pubic symphysis, and mild degenerative change of the right hip. SOFT TISSUES: No significant abnormality. ADDITIONAL FINDINGS: Multiple surgical clips overlying the lower abdomen, likely related to a prior hernia repair. Signer Name: Sindhu Sanchez MD Signed: 08/25/2019 7:15 PM Workstation Name: [id number] Transcribed By: [facility] Dictated By: Sindhu Sanchez MD Electronically Authenticated By: Sindhu Sanchez MD Signed Date/Time: 08/25/191914 DD/ 11 TD/TT: - Medical Decision Making Patient discharged from emergency room and taken taxi to go home. She did not want any pain medication because she says she has pain medication at home. I discussed with her that she needs to follow up with her primary care physician in 2 days and I also discussed her pain control management and fall prevention. Pt discharge torrie in stable condition. - Differential Diagnosis FX, subluxation, DDD, MSK pain Critical care attestation.: If time is entered above; I have spent that time in minutes in the direct care of this critically ill patient, excluding procedure time. ED Disposition Clinical Impression: Arthralgia of right hip Accidental fall Qualifiers: Encounter type: initial encounter Qualified Code(s): W19.XXXA - Unspecified fall, initial encounter Disposition: -01 TO HOME OR SELFCARE Is pt being admited?: No Does the pt Need Aspirin: No Condition: Stable Instructions: Fall Prevention for Older Adults (ED), Arthralgia (ED) Additional Instructions: Please return to the emergency room if your condition worsens. See Discharge instruction and fall prevention in elderly Follow up with primary care physician in 2 days Referrals: your ,primary care physician [Other] - 08/28/19
[2019-08-25 20:26] LABS: Alanine Aminotransferase 20 units/L (7-56); Albumin 4.3 g/dL (3.9-5); BUN/Creatinine Ratio 41; Blood Urea Nitrogen 37 mg/dL (7-17); Calcium 10.1 mg/dL (8.4-10.2); Hemolysis Index 10
== END 2019-08-25 21:06 | disposition home or self-care (01) ==
LOC: ED 18:22
DX: M25.551 Pain in right hip (principal); R42 Dizziness and giddiness; I10 Essential (primary) hypertension; I25.2 Old myocardial infarction; K21.9 Gastro-esophageal reflux disease without esophagitis; M19.90 Unspecified osteoarthritis, unspecified site; W18.30XA Fall on same level, unspecified, initial encounter; Y93.89 Activity, other specified; Y92.89 Other specified places as the place of occurrence of the external cause; Y99.8 Other external cause status
CPT/HCPCS: 36415; 72170; 80053; 85025

== ENCOUNTER 2020-02-18 12:32 | Emergency (ER) | payer MEDICARE ==
[2020-02-18 12:43] VITALS: BP 110/61
[2020-02-18] MEDS ORDERED: traMADol 50 MG TAB PO ONE (13:13)
[2020-02-18] MEDS ORDERED: dexAMETHasone 4 MG/ML VIAL IM ONE (13:13)
--- NOTE | 2020-02-18 13:26 | Emergency Department Report ---
ED General Adult HPI - General Chief complaint: Extremity Problem,Nontraumatic Stated complaint: LT LEG PAIN Time Seen by Provider: 02/18/20 13:01 Source: patient Mode of arrival: Stretcher Limitations: No Limitations - History of Present Illness Initial comments: Patient is an 79-year-old female presents emergency room with complaints of left hip pain that radiates down the back of her leg that began yesterday. She denies any fall or injury. She denies any back pain, leg swelling, numbness, weakness, bowel or bladder incontinence. She states she has a past medical history of diabetes. She states she has an allergy to codeine. Patient states that she walks with a walker. She states that she usually has this pain on the right side but now is experiencing it on the left. - Related Data Home Medications Medication Instructions Recorded Confirmed Last Taken Aspirin [Aspirin BABY CHEW TAB] 81 mg PO QDAY 09/06/14 12/10/17 12/10/17 Levothyroxine [Synthroid] 75 mcg PO QDAY 09/06/14 12/10/17 12/10/17 Simvastatin 20 mg PO QDAY 09/06/14 12/10/17 12/10/17 lisinopriL [Zestril TAB] 5 mg PO QDAY 09/06/14 12/10/17 12/10/17 Previous Rx's Medication Instructions Recorded Last Taken Type raNITIdine HCL [Zantac 300 MG TAB] 300 mg PO QPM #30 tablet 09/06/14 12/10/17 Rx Cephalexin [Keflex] 500 mg PO BID #10 capsule 12/15/17 Unknown Rx Ciprofloxacin HCl [Ciprofloxacin 500 mg PO Q12HR #10 tab 12/15/17 Unknown Rx TAB] Insulin Lispro [HumaLOG VIAL] 0 units SQ AC #1 vial 12/15/17 Unknown Rx Insulin NPH/Regular [NovoLIN 70/30] 6 unit SUB-Q BIDDIAB #1 vial 12/15/17 Unknown Rx Meloxicam [Mobic] 7.5 mg PO QDAY PRN #10 tablet 02/18/20 Unknown Rx Allergies Allergy/AdvReac Type Severity Reaction Status Date / Time latex Allergy Itching Verified 12/10/17 17:03 ED Review of Systems ROS: Stated complaint: LT LEG PAIN Other details as noted in HPI Comment: All other systems reviewed and negative ED Past Medical Hx - Past Medical History Previous Medical History?: Yes Hx Hypertension: Yes Hx CVA: Yes ("LIGHT STROKE") Hx Heart Attack/AMI: Yes Hx Congestive Heart Failure: No Hx Diabetes: Yes Hx Pulmonary Embolism: No Hx GERD: Yes Hx Liver Disease: No Hx Renal Disease: No Hx Arthritis: Yes Hx Seizures: No Hx Kidney Stones: No Hx Asthma: No Hx COPD: No Hx Tuberculosis: No Hx Dementia: No Hx HIV: No Additional medical history: "HEART PT" - Surgical History Past Surgical History?: Yes Hx Coronary Stent: Yes Hx Pacemaker: No Hx Cholecystectomy: Yes Additional Surgical History: HERNIA REPAIR. HYSTERECTOMY - Social History Smoking Status: Never Smoker Substance Use Type: None - Medications Home Medications: Home Medications Medication Instructions Recorded Confirmed Last Taken Type Aspirin [Aspirin BABY CHEW TAB] 81 mg PO QDAY 09/06/14 12/10/17 12/10/17 History Levothyroxine [Synthroid] 75 mcg PO QDAY 09/06/14 12/10/17 12/10/17 History Simvastatin 20 mg PO QDAY 09/06/14 12/10/17 12/10/17 History lisinopriL [Zestril TAB] 5 mg PO QDAY 09/06/14 12/10/17 12/10/17 History raNITIdine HCL [Zantac 300 MG TAB] 300 mg PO QPM #30 tablet 09/06/14 12/10/17 12/10/17 Rx Cephalexin [Keflex] 500 mg PO BID #10 capsule 12/15/17 Unknown Rx Ciprofloxacin HCl [Ciprofloxacin 500 mg PO Q12HR #10 tab 12/15/17 Unknown Rx TAB] Insulin Lispro [HumaLOG VIAL] 0 units SQ AC #1 vial 12/15/17 Unknown Rx Insulin NPH/Regular [NovoLIN 70/30] 6 unit SUB-Q BIDDIAB #1 vial 12/15/17 Unknown Rx Meloxicam [Mobic] 7.5 mg PO QDAY PRN #10 tablet 02/18/20 Unknown Rx ED Physical Exam - General Limitations: No Limitations General appearance: alert, in no apparent distress - Head Head exam: Present: atraumatic, normocephalic - Eye Eye exam: Present: normal appearance - ENT ENT exam: Present: mucous membranes moist - Extremities Exam Extremities exam: Present: other (no bony ttp to the LLE, no edema present to the LLE, no deformity, ttp to the left posterior thigh, no skin changes present, no calf ttp, neurovascularly intact ) - Neurological Exam Neurological exam: Present: alert, oriented X3 - Psychiatric Psychiatric exam: Present: normal affect, normal mood - Skin Skin exam: Present: warm, dry, intact ED Course Vital Signs 02/18/20 12:40 Temperature 98 F Pulse Rate 86 Respiratory 18 Rate Blood Pressure 110/61 O2 Sat by Pulse 100 Oximetry ED Medical Decision Making - Medical Decision Making Patient is an 79-year-old female presents emergency room with complaints of left hip pain that radiates down the back of her leg that began yesterday. She denies any fall or injury. She denies any back pain, leg swelling, numbness, weakness, bowel or bladder incontinence. She states she has a past medical history of diabetes. She states she has an allergy to codeine. Patient states that she walks with a walker. She states that she usually has this pain on the right side but now is experiencing it on the left. Vitals are normal. On exam: no bony ttp to the LLE, no edema present to the LLE, no deformity, ttp to the left posterior thigh, no skin changes present, no calf ttp, neurovascularly intact. no acute signs of DVT, septic joint, no signs of acute fracture or dislocation, pt has had no acute fall or injury. will have pt follow up with orthopedic for further evaluation and management. pt given tramadol and dexamethasone and she states that her pain was feeling much better. pt given prescription for mobic. advised pt Please take medication as prescribed as needed. Please follow-up with orthopedic doctor. Please follow-up with your primary care doctor. Return to emergency room for any new or worsening symptoms. - Differential Diagnosis DJD, arthritis, muscle strain, piriformis syndrome, sciatica Critical care attestation.: If time is entered above; I have spent that time in minutes in the direct care of this critically ill patient, excluding procedure time. ED Disposition Clinical Impression: Left hip pain Disposition: - TO HOME OR SELFCARE Is pt being admited?: No Does the pt Need Aspirin: No Condition: Stable Instructions: Arthralgia (ED) Additional Instructions: Please take medication as prescribed as needed. Please follow-up with orthopedic doctor. Please follow-up with your primary care doctor. Return to emergency room for any new or worsening symptoms. Prescriptions: Meloxicam [Mobic] 7.5 mg PO QDAY PRN #10 tablet PRN Reason: pain Referrals: PRIMARY CARE, [Primary Care Provider] - 2-3 Days ANITA LEVIN MD [Staff Physician] - 2-3 Days [facility] [Provider Group] - 2-3 Days Time of Disposition: 14:28 Print Language: BAHRAINI
== END 2020-02-18 14:48 | disposition home or self-care (01) ==
LOC: ED 12:32
DX: M25.552 Pain in left hip (principal); I11.0 Hypertensive heart disease with heart failure; I50.9 Heart failure, unspecified; E11.9 Type 2 diabetes mellitus without complications; K21.9 Gastro-esophageal reflux disease without esophagitis; M19.91 Primary osteoarthritis, unspecified site; Z86.73 Personal history of transient ischemic attack (TIA), and cerebral infarction without residual deficits; Z90.49 Acquired absence of other specified parts of digestive tract; Z79.4 Long term (current) use of insulin; Z79.2 Long term (current) use of antibiotics; Z79.899 Other long term (current) drug therapy; Z98.890 Other specified postprocedural states; Z90.710 Acquired absence of both cervix and uterus; Z91.040 Latex allergy status
CPT/HCPCS: 96372; 99283; J1100

== ENCOUNTER 2020-02-22 01:37 | Inpatient (IN) | payer MEDICARE ==
--- NOTE | 2020-02-22 04:45 | Emergency Department Report ---
ED General Adult HPI - General Chief complaint: Extremity Injury, Lower Stated complaint: LEFT LEG PAIN Time Seen by Provider: 02/22/20 04:27 Source: EMS Mode of arrival: Wheelchair Limitations: No Limitations - History of Present Illness Initial comments: Patient is 79 years old female with history of hypertension, diabetes and GERD. Patient brought to the emergency room via EMS from home for evaluation of bilateral lower extremity pain that has been going on for a while. Patient has been evaluated in the ER multiple times for the same complaint with negative finding. Patient was seen here 2 days ago for the same complaint. Upon my evaluation, patient seems aggressive and delusional. Patient kept saying a assistant chief of police took her license and humiliated her. She also stated that she is depressed because her and now she is living by herself. Patient cried in tears. Patient denied suicidal or homicidal ideation. Patient also denied visual or auditory hallucination. EMS stated that patient called 911 approximate 8 times this morning. - Related Data Home Medications Medication Instructions Recorded Confirmed Last Taken Aspirin [Aspirin BABY CHEW TAB] 81 mg PO QDAY 09/06/14 12/10/17 12/10/17 Levothyroxine [Synthroid] 75 mcg PO QDAY 09/06/14 12/10/17 12/10/17 Simvastatin 20 mg PO QDAY 09/06/14 12/10/17 12/10/17 lisinopriL [Zestril TAB] 5 mg PO QDAY 09/06/14 12/10/17 12/10/17 Previous Rx's Medication Instructions Recorded Last Taken Type raNITIdine HCL [Zantac 300 MG TAB] 300 mg PO QPM #30 tablet 09/06/14 12/10/17 Rx Cephalexin [Keflex] 500 mg PO BID #10 capsule 12/15/17 Unknown Rx Ciprofloxacin HCl [Ciprofloxacin 500 mg PO Q12HR #10 tab 12/15/17 Unknown Rx TAB] Insulin Lispro [HumaLOG VIAL] 0 units SQ AC #1 vial 12/15/17 Unknown Rx Insulin NPH/Regular [NovoLIN 70/30] 6 unit SUB-Q BIDDIAB #1 vial 12/15/17 Unknown Rx Meloxicam [Mobic] 7.5 mg PO QDAY PRN #10 tablet 02/18/20 Unknown Rx Allergies Allergy/AdvReac Type Severity Reaction Status Date / Time latex Allergy Itching Verified 03/16/18 17:03 hydrocodone AdvReac Unknown Verified 02/22/20 13:06 ED Review of Systems ROS: Stated complaint: LEFT LEG PAIN Other details as noted in HPI Comment: All other systems reviewed and negative Constitutional: denies: chills, fever Respiratory: denies: cough, shortness of breath Cardiovascular: denies: chest pain, palpitations Gastrointestinal: denies: abdominal pain, nausea, vomiting Musculoskeletal: denies: back pain Neurological: denies: headache ED Past Medical Hx - Past Medical History Previous Medical History?: Yes Hx Hypertension: Yes Hx CVA: Yes ("LIGHT STROKE") Hx Heart Attack/AMI: Yes Hx Congestive Heart Failure: No Hx Diabetes: Yes Hx Pulmonary Embolism: No Hx GERD: Yes Hx Liver Disease: No Hx Renal Disease: No Hx Arthritis: Yes Hx Seizures: No Hx Kidney Stones: No Hx Asthma: No Hx COPD: No Hx Tuberculosis: No Hx Dementia: No Hx HIV: No Additional medical history: "HEART PT" - Surgical History Past Surgical History?: Yes Hx Coronary Stent: Yes Hx Pacemaker: No Hx Cholecystectomy: Yes Additional Surgical History: HERNIA REPAIR. HYSTERECTOMY - Social History Smoking Status: Former Smoker Substance Use Type: None - Medications Home Medications: Home Medications Medication Instructions Recorded Confirmed Last Taken Type Aspirin [Aspirin BABY CHEW TAB] 81 mg PO QDAY 09/06/14 12/10/17 12/10/17 History Levothyroxine [Synthroid] 75 mcg PO QDAY 09/06/14 12/10/17 12/10/17 History Simvastatin 20 mg PO QDAY 09/06/14 12/10/17 12/10/17 History lisinopriL [Zestril TAB] 5 mg PO QDAY 09/06/14 12/10/17 12/10/17 History raNITIdine HCL [Zantac 300 MG TAB] 300 mg PO QPM #30 tablet 09/06/14 12/10/17 12/10/17 Rx Cephalexin [Keflex] 500 mg PO BID #10 capsule 12/15/17 Unknown Rx Ciprofloxacin HCl [Ciprofloxacin 500 mg PO Q12HR #10 tab 12/15/17 Unknown Rx TAB] Insulin Lispro [HumaLOG VIAL] 0 units SQ AC #1 vial 12/15/17 Unknown Rx Insulin NPH/Regular [NovoLIN 70/30] 6 unit SUB-Q BIDDIAB #1 vial 12/15/17 Unknown Rx Meloxicam [Mobic] 7.5 mg PO QDAY PRN #10 tablet 02/18/20 Unknown Rx ED Physical Exam - General Limitations: No Limitations General appearance: alert, anxious, other (agitated) - Head Head exam: Present: atraumatic, normocephalic - ENT ENT exam: Present: normal exam, normal orophraynx, mucous membranes moist - Neck Neck exam: Present: normal inspection, full ROM. Absent: tenderness, meningismus - Respiratory Respiratory exam: Present: normal lung sounds bilaterally - Cardiovascular Cardiovascular Exam: Present: regular rate, normal rhythm, normal heart sounds - GI/Abdominal GI/Abdominal exam: Present: soft, normal bowel sounds. Absent: distended, tenderness, guarding, rebound, rigid, mass, bruit, pulsatile mass, hernia - Extremities Exam Extremities exam: Present: full ROM, normal capillary refill. Absent: pedal edema, calf tenderness - Back Exam Back exam: Present: normal inspection, full ROM. Absent: CVA tenderness (R), CVA tenderness (L) - Neurological Exam Neurological exam: Present: alert, altered, CN II-XII intact. Absent: motor sensory deficit - Psychiatric Psychiatric exam: Present: depressed, agitated, anxious. Absent: homicidal ideation, suicidal ideation - Skin Skin exam: Present: warm, intact ED Course Vital Signs 02/22/20 02/22/20 02/22/20 01:49 07:31 07:41 Temperature 98.1 F 97.6 F Pulse Rate 82 Pulse Rate [ Apical] Respiratory 18 Rate Blood Pressure 115/97 134/59 O2 Sat by Pulse 97 Oximetry 02/22/20 02/22/20 02/22/20 08:00 08:31 09:31 Temperature Pulse Rate Pulse Rate [ Apical] Respiratory Rate Blood Pressure 114/47 134/59 143/68 O2 Sat by Pulse 99 99 97 Oximetry 02/22/20 02/22/20 02/22/20 11:00 12:01 14:03 Temperature Pulse Rate 69 Pulse Rate [ 80 Apical] Respiratory Rate Blood Pressure 134/59 118/47 O2 Sat by Pulse 97 98 96 Oximetry ED Medical Decision Making - Lab Data Result diagrams: 02/22/20 04:52 02/22/20 04:52 Critical care attestation.: If time is entered above; I have spent that time in minutes in the direct care of this critically ill patient, excluding procedure time. ED Disposition Clinical Impression: Metabolic encephalopathy UTI (urinary tract infection) Qualifiers: Encounter type: initial encounter Disposition: -09 OP ADMIT IP TO THIS HOSP Is pt being admited?: Yes Condition: Stable
[2020-02-22 05:14] LABS: Basophils % (Auto) 0.6 % (0.0-1.8); Eosinophils # (Auto) 0.1 K/mm3 (0.0-0.4); Eosinophils % (Auto) 1.9 % (0.0-4.3); Hematocrit 40.5 % (30.3-42.9); Hemoglobin 13.7 gm/dl (10.1-14.3); Lymphocytes # (Auto) 1.7 K/mm3 (1.2-5.4); Lymphocytes % (Auto) 27.5 % (13.4-35.0); Mean Corpuscular HGB Conc 34 % (30-34); Mean Corpuscular Volume 87 fl (79-97); Monocytes # (Auto) 0.6 K/mm3 (0.0-0.8); Monocytes % (Auto) 9.1 % (0.0-7.3); Platelet Count 126 K/mm3 (140-440); Red Blood Count 4.63 M/mm3 (3.65-5.03); Red Cell Distribution Width 14.2 % (13.2-15.2)
[2020-02-22 05:28] LABS: Calcium 10.4 mg/dL (8.4-10.2)
[2020-02-22 05:32] LABS: Alanine Aminotransferase 17 units/L (7-56); Albumin 4.3 g/dL (3.9-5)
[2020-02-22 05:33] LABS: Bilirubin,Direct < 0.2 mg/dL (0-0.2)
[2020-02-22 08:36] LABS: Bacteria,Urine 1+ /HPF (Negative); Bilirubin,Urine NEG (Negative); Blood,Urine NEG (Negative); Color,Urine Yellow (Yellow); Mucus,Urine FEW /HPF; Protein,Urine <15 mg/dL mg/dL (Negative); Urobilinogen,Urine < 2.0 mg/dL (<2.0)
[2020-02-22 08:37] LABS: Amphetamine Screen,Urine PRESUMPTIVE NEGATIVE; Benzodiazepines Screen,Urine PRESUMPTIVE NEGATIVE; Cannabinoid Screen,Urine PRESUMPTIVE NEGATIVE; Cocaine Screen,Urine PRESUMPTIVE NEGATIVE; Methadone Screen,Urine PRESUMPTIVE NEGATIVE; Opiate Screen,Urine PRESUMPTIVE NEGATIVE
[2020-02-22] MEDS ORDERED: ALBUTEROL 2.5 MG/3 ML NEBU IH PRN (12:54)
[2020-02-22] MEDS ORDERED: ONDANSETRON 4 MG/2 ML INJ IV PRN (12:54)
--- NOTE | 2020-02-22 13:00 | History and Physical Report ---
History of Present Illness Chief complaint: She is confused History of present illness: 79 YO Female with Hypothyroidism, GERD, HLD, Obesity Hypoventilation Syndrome, CAD S/P Stent Placement, OA, CVA, Vascular Dementia, Depressed Mood presents to ED for evaluation. Patient has tangential thinking and provides minimal history. Patient history taken from patient, ED staff, EMS staff, and medical record. Patient is delusional and repeats statements that "police manager took my license". Patient reports difficulty with urination and bladder tenderness. EMS notified and upon arrival to the patient's home the patient was found to be in distress. The patient was transported to [facility] for further evaluation and car e. Patient seen and evaluated in the emergency department. Lab and imaging studies reviewed. Patient found to have urinary tract infection complicated by metabolic encephalopathy, metabolic acidosis. Patient admitted to medical floor due to increased risk of decompensation. Patient treated with IV fluid resuscitation therapy, and IV antibiotic therapy. No reports of fever, chills, chest pain, palpitation, productive cough, skin rash, recent ill contacts, or known exposure to COVID-19. Prior admission on 12/10/2017 reviewed. All medication listed at time of admission have been reconciled. Advanced care planning conducted in ED. Past History Past Medical History: arthritis, GERD, hypothyroidism, stroke, other (See HPI) Past Surgical History: cholecystectomy, hysterectomy, hernia repair, Other (Cardiac stent placement) Social history: . denies: smoking, alcohol abuse, prescription drug abuse Family history: hypertension Medications and Allergies Allergies Allergy/AdvReac Type Severity Reaction Status Date / Time latex Allergy Itching Verified 12/10/17 17:03 hydrocodone AdvReac Unknown Verified 02/22/20 13:06 Home Medications Medication Instructions Recorded Confirmed Last Taken Type Aspirin [Aspirin BABY CHEW TAB] 81 mg PO QDAY 09/06/14 12/10/17 12/10/17 History Levothyroxine [Synthroid] 75 mcg PO QDAY 09/06/14 12/10/17 12/10/17 History Simvastatin 20 mg PO QDAY 09/06/14 12/10/17 12/10/17 History lisinopriL [Zestril TAB] 5 mg PO QDAY 09/06/14 12/10/17 12/10/17 History raNITIdine HCL [Zantac 300 MG TAB] 300 mg PO QPM #30 tablet 09/06/14 12/10/17 Rx Cephalexin [Keflex] 500 mg PO BID #10 capsule 12/15/17 Unknown Rx Ciprofloxacin HCl [Ciprofloxacin 500 mg PO Q12HR #10 tab 12/15/17 Unknown Rx TAB] Insulin Lispro [HumaLOG VIAL] 0 units SQ AC #1 vial 12/15/17 Unknown Rx Insulin NPH/Regular [NovoLIN 70/30] 6 unit SUB-Q BIDDIAB #1 vial 12/15/17 Unknown Rx Meloxicam [Mobic] 7.5 mg PO QDAY PRN #10 tablet 02/18/20 Unknown Rx Active Meds: Active Medications Acetaminophen (Tylenol) 650 mg PO Q4H PRN PRN Reason: Pain MILD(1-3)/Fever >100.5/HILLIARD Albuterol (Proventil) 2.5 mg IH Q4HRT PRN PRN Reason: Shortness Of Breath Aspirin (Baby Aspirin) 81 mg PO QDAY AMI Levothyroxine Sodium (Synthroid) 75 mcg PO QDAY AMI Lisinopril (Zestril) 5 mg PO QDAY AMI Meloxicam (Mobic) 7.5 mg PO QDAY PRN PRN Reason: pain Miscellaneous Medication (Ranitidine Hcl [Zantac 300 Mg Tab]) 300 mg PO QPM AMI Miscellaneous Medication (Simvastatin [Simvastatin]) 20 mg PO QDAY AMI Ondansetron HCl (Zofran) 4 mg IV Q8H PRN PRN Reason: Nausea And Vomiting Sodium Chloride (Sodium Chloride Flush Syringe 10 Ml) 10 ml IV BID AMI Sodium Chloride (Sodium Chloride Flush Syringe 10 Ml) 10 ml IV PRN PRN PRN Reason: LINE FLUSH Review of Systems ROS unobtainable: due to mental status Exam - Constitutional Vitals: Temp Pulse Resp BP Pulse Ox 97.6 F 82 18 143/68 97 02/22/20 07:41 02/22/20 01:49 02/22/20 01:49 02/22/20 09:31 02/22/20 09:31 General appearance: Present: mild distress, obese, disheveled - EENT Eyes: Present: PERRL ENT: hearing intact, clear oral mucosa - Neck Neck: Present: supple, normal ROM - Respiratory Respiratory effort: normal Respiratory: bilateral: CTA - Cardiovascular Heart Sounds: Present: S1 & S2. Absent: rub, click - Extremities Extremities: pulses symmetrical, No edema Peripheral Pulses: within normal limits - Abdominal General gastrointestinal: Present: soft, non-tender, non-distended, normal bowel sounds Localized gastrointestinal: tender: suprapubic Female genitourinary: Present: normal - Integumentary Integumentary: Present: clear, warm, dry - Musculoskeletal Musculoskeletal: gait normal, strength equal bilaterally - Psychiatric Psychiatric: no appropriate mood/affect, no intact judgment & insight, no memory intact, cooperative, agitated - Neurologic Neurologic: CNII-XII intact, moves all extremities Results - Labs CBC & Chem 7: 02/22/20 04:52 02/22/20 04:52 Labs: Abnormal lab results 02/22/20 02/22/20 02/22/20 Range/Units 03:56 04:52 04:52 Plt Count 126 L (140-440) K/mm3 Frio % (Auto) 9.1 H (0.0-7.3) % Carbon Dioxide 21 L (22-30) mmol/L BUN 36 H (7-17) mg/dL Glucose 163 H (65-100) mg/dL POC Glucose 169 H (70-105) Calcium 10.4 H (8.4-10.2) mg/dL Urine pH (5.0-7.0) Urine WBC (Auto) (0.0-6.0) /HPF Salicylates (2.8-20.0) mg/dL Acetaminophen (10.0-30.0) ug/mL 02/22/20 02/22/20 02/22/20 Range/Units 04:52 04:52 07:40 Plt Count (140-440) K/mm3 Frio % (Auto) (0.0-7.3) % Carbon Dioxide (22-30) mmol/L BUN (7-17) mg/dL Glucose (65-100) mg/dL POC Glucose (70-105) Calcium (8.4-10.2) mg/dL Urine pH 8.0 H (5.0-7.0) Urine WBC (Auto) 9.0 H (0.0-6.0) /HPF Salicylates 2.3 L (2.8-20.0) mg/dL Acetaminophen < 5.0 L (10.0-30.0) ug/mL Assessment and Plan - Patient Problems (1) UTI (urinary tract infection) Current Visit: Yes Status: Acute Qualifiers: Encounter type: initial encounter Plan to address problem: CBC, CMP, urinalysis, IV antibiotic therapy, supportive care. (2) Metabolic encephalopathy Current Visit: Yes Status: Acute Plan to address problem: Neuro check, seizure precaution, aspiration precaution, fall precautions, supportive care. Treat urinary tract infection., Resume Synthroid therapy. Thyroid panel. (3) Metabolic acidosis Current Visit: Yes Status: Acute Plan to address problem: BMP, repeat BMP in a.m., supportive care, IV fluid resuscitation therapy. (4) Obesity hypoventilation syndrome Current Visit: Yes Status: Acute Plan to address problem: Supplemental oxygen, nebulizer therapy, pulmonary toilet, noninvasive positive pressure ventilation as clinically indicated, ambulate in hallway 3 times daily and as needed, balanced diet and increase physical activity at discharge. (5) DVT prophylaxis Current Visit: Yes Status: Acute Plan to address problem: SCD to bilateral lower extremities while in bed, prophylactic heparin (6) Advance care planning Current Visit: Yes Status: Acute Plan to address problem: Patient is full code, disease education conducted, +30 minutes.
--- NOTE | 2020-02-22 13:13 | Emergency Department Report ---
Blank Doc - Documentation Documentation: Patient seen and examined. She is actively delusional. She is encephalopathic. Review of her laboratory indicates that she is hypercalcemic with prerenal azotemia and a UTI. She is referred to Dr. Biswas of the hospitalist service for further care and evaluation.
[2020-02-22] MEDS: cefTRIAXone/NS 1 GM/50 ML 1 GM/50 ML BAG IV SCH (14:13)
[2020-02-22] MEDS: ACETAMINOPHEN 325 MG TAB PO PRN (14:13)
[2020-02-22] MEDS ORDERED: RANITIDINE HCL 300 MG PO SCH (18:00)
[2020-02-22] MEDS: FAMOTIDINE 20 MG TAB PO SCH (18:19)
[2020-02-22 18:42] LABS: Free T4 (Free Thyroxine) 1.42 ng/dL (0.76-1.46)
[2020-02-22] MEDS: HEPARIN 5,000 UNIT/1 ML VIAL SUB-Q SCH (21:12)
[2020-02-22] MEDS: PRAVASTATIN 40 MG TAB PO SCH (21:12)
[2020-02-23] MEDS: LEVOTHYROXINE 75 MCG TAB PO SCH (05:28)
--- NOTE | 2020-02-23 09:44 | Cat Scan Report ---
CT BRAIN: 02/23/2020 INDICATION / CLINICAL INFORMATION: encephalopathy. COMPARISON: None available. FINDINGS: BRAIN/INTRACRANIAL STRUCTURES: Unenhanced CT images of the brain demonstrate no evidence of acute int racranial abnormality. Ventricles and sulci are prominent in size, consistent with age-related atrophic change. There is no evidence of acute ischemic injury, hemorrhage, or mass. There are no abnormal extra-axial fluid collections. Atherosclerotic vascular calcifications are present in the distal internal carotid arteries and verte bral arteries. EXTRACRANIAL STRUCTURES: Unremarkable. IMPRESSION: No acute abnormality. Chronic and age-related changes. All CT scans at this location are performed using dose reduction to ALARA by means of automated expos ure control. Signer Name: Murali Smith MD Signed: 02/23/2020 9:40 AM Workstation Name: [id number]
[2020-02-23] MEDS ORDERED: NON-FORMULARY EACH (Simvastatin [Simvastatin] 20 MG) PO SCH (10:00)
[2020-02-23] MEDS: ASPIRIN 81 MG TAB CHEW PO SCH (10:05)
[2020-02-23] MEDS: LISINOPRIL 5 MG TAB PO SCH (10:05)
[2020-02-23] MEDS: HEPARIN 5,000 UNIT/1 ML VIAL SUB-Q SCH ×2 (10:06→22:23)
[2020-02-23] MEDS: cefTRIAXone/NS 1 GM/50 ML 1 GM/50 ML BAG IV SCH (10:06)
--- NOTE | 2020-02-23 10:41 | Consultation ---
History of Present Illness - Reason for Consult Consult date: 02/23/20 Reason for consult: MHE Requesting physician: AVERY DALLAS - Chief Complaint Chief complaint: She is confused - History of Present Psychiatric Illness Per [facility]: Pt is an 79 year old female; per triage note, "B/L LE pain and swelling X 4 days" Pt reported to county assessor, "When I walk my legs burn. The police got my license, and they shouldn't have." Explained to pt when she calls [employer] it alert paramedics and ambulance; pt called multiple times that is why police asked for license. "I called because I'm in pain honey." Pt lives alone and has the support of family; "I own my own home; it's paid off, and I want to stay there; I'm not giving up my house." Pt reports she has no mental health diagnosis. Pt reports she has no mental health outpatient providers. Family reports pt has possible mild dementia. Pt family has set up orthopedic appointments and appt to check for DVT is 2 weeks.Pt reports no AH/VH. Pt is responding appropriately to all questions by the county assessor. Pt has good concentration, good attention, good memory. Pt is focused on being able to get in home supports; the family set up meals on wheels and [employer]. Family requesting assistance with in home health aid, etc as well as assisted living resources/longterm. Family is willing to pick the pt up and return her to her residence, but they request set up of home health. Pt replied to homicidal ideation, "No, no, no honey; I'm not gonna hurt anyone. My legs are swelled up!" "I need help when I go to the bathroom. I fell when I was trying to bring the trash back." "I want to get one of them house nurses to help me because I fell and broke my bones and spent 4 months in a longterm to get better." When asked about suicidal ideation, pt replies, "I ain't crazy baby." "I just want this pain to go away from my back; Lord, I want to live honey!" When asked about suicidal ideation, pt replies, "I ain't crazy baby." "I just want this pain to go away from my back; Lord, I want to live honey!"Pt denies substance abuse; pt tox is negative. Pt's daughter reports the pt previously abused pain meds; "she is a hypochondriac; that's why she isn't prescribed any. HPI Patient is an 79-year-old disabled female with no significant past psychiatric history who was presented for mental health evaluation. Patient describes her mood today as being good, reports sleeping with self and states home is paid off. Patient endorses history of depression 12 years ago after second . Patient denies any outpatient counseling or currently being on psychiatric medication. Patient denies any SI, HI or denies any auditory or visual hallucination Patient describes a good and stable mood, denies being depressed or excessively nervous. Patient eats and sleeps well. Patient denies panic attacks, recurrent nightmares or flashbacks. Patient denies symptoms suggestive of OCD or PTSD. Patient denies paranoia, thought interference and no features suggestive of hypomania or judy. She completely denies suicidal or homicidal thoughts. PAST PSYCHIATRIC HISTORY Diagnoses: None reported Suicide attempts or Self-harm behavior: None reported Prior psychiatric hospitalizations: None reported Substance Abuse history: None reported Previous psychiatric medications tried: None reported Outpatient treatment: None reported PAST MEDICAL HISTORY: N/A Family Psychiatric History: None reported or documented SOCIAL HISTORY Marital Status: Living Arrangements: Home,. owned by self Employment Status: Disabled Access to guns/weapons: None reported Education: 8th grade History of Abuse: None reported Legal History: None reported REVIEW OF SYSTEMS Constitutional: Negative for weight loss ENT: Negative for stridor Respiratory: Negative for cough or hemoptysis All other systems reviewed and are negative MENTAL STATUS EXAMINATION General Appearance and Behavior: Age appropriate, fair hygiene, wearing appropriate clothes but soiled, seated in bed, good eye contact, cooperativewith questioning and polite Cooperation: Participating/engaged Psychomotor Behavior: unremarkable and within normal limits Mood: Good Affect and affective range: Congruent with mood Thought Process: Fluent/Logical Thought Content: Within reality Speech: Normal volume, Regular rate and rhythm Intellectual Functioning: Average Suicidal Ideation: Denies SI Homicidal Ideation: Denies HI Impulse Control: Unimpaired Insight and Judgment: Normal insight and judgment Memory: Normal, Attention: Leann Orientation: Alert, oriented RECOMMENDATIONS There is concern for new onset Dementia, recommends home health. See order MEDICATIONS: None at this tome Risks, benefits and alternatives of medications discussed with the patient, questions answered and consent obtained from patient. PSYCHOTHERAPY: Supportive psychotherapy provided MEDICAL: Per primary team DELIRIUM PRECAUTIONS: Please re-orient patient frequently, keep lights on during the day, and minimize benzodiazepines and opiates as these medications could worsen patient's confusion. CATALYST OPERATOR: Per medical team DISPOSITION: Per primary team; no indication for acute inpatient psychiatric hospitalization at this time LEGAL STATUS: Voluntary FOLLOW-UP: Will sign off Thank you for the consult. Please contact with any questions and/or concerns. Medications and Allergies Allergies Allergy/AdvReac Type Severity Reaction Status Date / Time latex Allergy Itching Verified 12/10/17 17:03 hydrocodone AdvReac Unknown Verified 02/22/20 13:06 Home Medications Medication Instructions Recorded Confirmed Last Taken Type Aspirin [Aspirin BABY CHEW TAB] 81 mg PO QDAY 09/06/14 12/10/17 12/10/17 History Levothyroxine [Synthroid] 75 mcg PO QDAY 09/06/14 12/10/17 12/10/17 History Simvastatin 20 mg PO QDAY 09/06/14 12/10/17 12/10/17 History lisinopriL [Zestril TAB] 5 mg PO QDAY 09/06/14 12/10/17 12/10/17 History raNITIdine HCL [Zantac 300 MG TAB] 300 mg PO QPM #30 tablet 09/06/14 12/10/17 12/10/17 Rx Cephalexin [Keflex] 500 mg PO BID #10 capsule 12/15/17 Unknown Rx Ciprofloxacin HCl [Ciprofloxacin 500 mg PO Q12HR #10 tab 12/15/17 Unknown Rx TAB] Insulin Lispro [HumaLOG VIAL] 0 units SQ AC #1 vial 12/15/17 Unknown Rx Insulin NPH/Regular [NovoLIN 70/30] 6 unit SUB-Q BIDDIAB #1 vial 12/15/17 U nknown Rx Meloxicam [Mobic] 7.5 mg PO QDAY PRN #10 tablet 02/18/20 Unknown Rx Active Meds: Active Medications Acetaminophen (Tylenol) 650 mg PO Q4H PRN PRN Reason: Pain MILD(1-3)/Fever >100.5/HILLIARD Last Admin: 02/22/20 14:13 Dose: 650 mg Documented by: Albuterol (Proventil) 2.5 mg IH Q4HRT PRN PRN Reason: Shortness Of Breath Aspirin (Baby Aspirin) 81 mg PO QDAY [facility] Last Admin: 02/23/20 10:05 Dose: 81 mg Documented by: Famotidine (Pepcid) 20 mg PO QPM [facility] Last Admin: 02/22/20 18:19 Dose: 20 mg Documented by: Heparin Sodium (Porcine) (Heparin) 5,000 unit SUB-Q Q12HR [facility] Last Admin: 02/23/20 10:06 Dose: 5,000 unit Documented by: Ceftriaxone Sodium (Rocephin/Ns 1 Gm/50 Ml) 1 gm in 50 mls @ 100 mls/hr IV Q24HR [facility]; Protocol Last Admin: 02/23/20 10:06 Dose: 100 mls/hr Documented by: Levothyroxine Sodium (Synthroid) 75 mcg PO DAILY@0600 [facility] Last Admin: 02/23/20 05:28 Dose: 75 mcg Documented by: Lisinopril (Zestril) 5 mg PO QDAY [facility] Last Admin: 02/23/20 10:05 Dose: 5 mg Documented by: Meloxicam (Mobic) 7.5 mg PO QDAY PRN PRN Reason: Pain, Moderate (4-6) Ondansetron HCl (Zofran) 4 mg IV Q8H PRN PRN Reason: Nausea And Vomiting Pravastatin Sodium (Pravachol) 40 mg PO QHS [facility] Last Admin: 02/22/20 21:12 Dose: 40 mg Documented by: Sodium Chloride (Sodium Chloride Flush Syringe 10 Ml) 10 ml IV BID [facility] Last Admin: 02/23/20 10:07 Dose: 10 ml Documented by: Sodium Chloride (Sodium Chloride Flush Syringe 10 Ml) 10 ml IV PRN PRN PRN Reason: LINE FLUSH Mental Status Exam - Vital signs Last Vital Signs Temp 98.3 F 02/23/20 07:18 Pulse 62 02/23/20 10:05 Resp 18 02/23/20 08:59 BP 123/57 02/23/20 10:05 Pulse Ox 97 02/23/20 08:00 Results Result Diagrams: 02/22/20 04:52 02/22/20 04:52 All other labs normal.
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
[2020-02-23] MEDS: FAMOTIDINE 20 MG TAB PO SCH (17:38)
[2020-02-23] MEDS: ACETAMINOPHEN 325 MG TAB PO PRN ×2 (17:38→22:23)
[2020-02-23] MEDS: PRAVASTATIN 40 MG TAB PO SCH (22:23)
[2020-02-23] MEDS: MELOXICAM 7.5 MG TAB PO PRN (23:59)
[2020-02-24] MEDS: LEVOTHYROXINE 75 MCG TAB PO SCH (06:54)
[2020-02-24] MEDS: ACETAMINOPHEN 325 MG TAB PO PRN ×2 (06:54→22:18)
[2020-02-24] MEDS: ASPIRIN 81 MG TAB CHEW PO SCH (09:18)
[2020-02-24] MEDS: HEPARIN 5,000 UNIT/1 ML VIAL SUB-Q SCH ×2 (09:18→22:16)
[2020-02-24] MEDS: cefTRIAXone/NS 1 GM/50 ML 1 GM/50 ML BAG IV SCH (09:18)
--- NOTE | 2020-02-24 10:35 | Discharge Summary ---
Providers - Providers Date of Admission: 02/22/20 12:54 Attending physician: EZRA GARCÍA MD 02/22/20 11:07 Consult to Case Management [CONS] Stat Services Needed at Discharge: Home Health Services P[employer] Notified:: Patient 02/23/20 08:11 Consult to Mental Health [CONS] Routine Reason For Exam: depression Primary care physician: DEBURRER MACHINE Hospitalization Reason for admission: Acute cystitis Condition: Stable Hospital course: 79 YO Female with Hypothyroidism, GERD, HLD, Obesity Hypoventilation Syndrome, CAD S/P Stent Placement, OA, CVA, Vascular Dementia, Depressed Mood presents to ED for evaluation. Patient has tangential thinking and provides minimal history. Patient history taken from patient, ED staff, EMS staff, and medical record. Patient is delusional and repeats statements that "public safety police took my license". Patient reports difficulty with urination and bladder tenderness. EMS notified and upon arrival to the patient's home the patient was found to be in distress. The patient was transported to [facility] for further evaluation and care. Patient seen and evaluated in the emergency department. Lab and imaging studies reviewed. Patient found to have urinary tract infection complicated by metabolic encephalopathy, metabolic acidosis. Patient admitted to medical floor due to increased risk of decompensation. Patient treated with IV fluid resuscitation therapy, and IV antibiotic therapy. No reports of fever, chills, chest pain, palpitation, productive cough, skin rash, recent ill contacts, or known exposure to COVID-19. Prior admission on 12/10/2017 reviewed. All medication listed at time of admission have been reconciled. Advanced care planning conducted in ED. doppler lower ext Discussed with daughter who requested home health this has been arranged. Mental status is improved to baseline Concern still exists for early onset dementia. This concern has been addressed with the daughter primary care physician will provide further work-up. (1) acute cystitis Treated with oral antibiotics on IV antibiotics. (2) Metabolic encephalopathy Current Visit: Yes Status: Acute Plan to address problem: Neuro check, seizure precaution, aspiration precaution, fall precautions, supportive care. Treat urinary tract infection., Resume Synthroid therapy. Thyroid panel. (3) Metabolic acidosis Current Visit: Yes Status: Acute Plan to address problem: BMP, repeat BMP in a.m., supportive care, IV fluid resuscitation therapy. (4) Obesity hypoventilation syndrome Current Visit: Yes Status: Acute Plan to address problem: Supplemental oxygen, nebulizer therapy, pulmonary toilet, noninvasive positive pressure ventilation as clinically indicated, ambulate in hallway 3 times daily and as needed, balanced diet and increase physical activity at discharge. (5) DVT prophylaxis Current Visit: Yes Status: Acute Plan to address problem: SCD to bilateral lower extremities while in bed, prophylactic heparin (6) possible early onset dementia Psych was consulted per their recommendation will need home after discharge. Disposition: [id number] HOME UNDER HOME [facility] Time spent for discharge: 35 mins Core Measure Documentation - Palliative Care Palliative Care/ Comfort Measures: Not Applicable - Core Measures Any of the following diagnoses?: none Exam - Physical Exam Narrative exam: General appearance: Present: No acute distress, obese, - EENT Eyes: Present: PERRL ENT: hearing intact, clear oral mucosa - Neck Neck: Present: supple, normal ROM - Respiratory Respiratory effort: normal Respiratory: bilateral: CTA - Cardiovascular Heart Sounds: Present: S1 & S2. Absent: rub, click - Extremities Extremities: pulses symmetrical, No edema Peripheral Pulses: within normal limits - Abdominal General gastrointestinal: Present: soft, non-tender, non-distended, normal bowel sounds Localized gastrointestinal: tender: suprapubic Female genitourinary: Present: normal - Integumentary Integumentary: Present: clear, warm, dry - Musculoskeletal Musculoskeletal: gait normal, strength equal bilaterally - Psychiatric Psychiatric: no appropriate mood/affect, no intact judgment & insight, no memory intact, cooperative, agitated - Neurologic Neurologic: CNII-XII intact, moves all extremities - Constitutional Vitals: Temp Pulse Resp BP Pulse Ox 98.8 F 65 18 98/37 97 02/24/20 08:36 02/24/20 08:36 02/24/20 08:36 02/24/20 08:36 02/24/20 08:36 Plan Activity: advance as tolerated, fall precautions Diet: low fat Special Instructions: record daily weights, record daily BP diary, physical therapy, occupational therapy Follow up with: PRIMARY CARE, [Primary Care Provider] - 3-5 Days Prescriptions: Ciprofloxacin HCl [Ciprofloxacin TAB] 500 mg PO Q12HR #6 tab
[2020-02-24] MEDS: LISINOPRIL 5 MG TAB PO SCH (11:01)
[2020-02-24] MEDS: FAMOTIDINE 20 MG TAB PO SCH (17:35)
[2020-02-24] MEDS: PRAVASTATIN 40 MG TAB PO SCH (22:16)
[2020-02-25] MEDS: LEVOTHYROXINE 75 MCG TAB PO SCH (06:23)
[2020-02-25 08:42] VITALS: BP 119/47
--- NOTE | 2020-02-25 10:59 | Progress Note ---
Assessment and Plan Assessment and plan: 79 YO Female with Hypothyroidism, GERD, HLD, Obesity Hypoventilation Syndrome, CAD S/P Stent Placement, OA, CVA, Vascular Dementia, Depressed Mood presents to ED for evaluation. Patient has tangential thinking and provides minimal history. Patient history taken from patient, ED staff, EMS staff, and medical record. Patient is delusional and repeats statements that "flight communications officer took my license". Patient reports difficulty with urination and bladder tenderness. EMS notified and upon arrival to the patient's home the patient was found to be in distress. The patient was transported to [facility] for further evaluation and care. Patient seen and evaluated in the emergency department. Lab and imaging studies reviewed. Patient found to have urinary tract infection complicated by metabolic encephalopathy, metabolic acidosis. Patient admitted to medical floor due to increased risk of decompensation. Patient treated with IV fluid resuscitation therapy, and IV antibiotic therapy. No reports of fever, chills, chest pain, palpitation, productive cough, skin rash, recent ill contacts, or known exposure to COVID-19. Prior admission on 12/10/2017 reviewed. All medication listed at time of admission have been reconciled. Advanced care planning conducted in ED. 02/23: Patient was discharged but unfortunately could not get Doppler of the lower extremity which is swollen done to rule out DVT prior to leaving will monitor. I was not informed of this finding. 02/24: Continues to await Doppler of lower extremity which is the primary reason the patient presented to the hospital with swelling on the lower extremity. Incidentally was found to be confused. Confusion is improved and I did speak to the daughter who has made arrangements for patient to be transferred back home. (1) acute cystitis Current Visit: Yes Status: Acute Qualifiers: Encounter type: initial encounter Plan to address problem: CBC, CMP, urinalysis, IV antibiotic therapy, supportive care. Follow urine culture. (2) Metabolic encephalopathy Current Visit: Yes Status: Acute Plan to address problem: Neuro check, seizure precaution, aspiration precaution, fall precautions, supportive care. Treat urinary tract infection., Resume Synthroid therapy. Thyroid panel. (3) Metabolic acidosis Current Visit: Yes Status: Acute Plan to address problem: BMP, repeat BMP in a.m., supportive care, IV fluid resuscitation therapy. (4) Obesity hypoventilation syndrome Current Visit: Yes Status: Acute Plan to address problem: Supplemental oxygen, nebulizer therapy, pulmonary toilet, noninvasive positive pressure ventilation as clinically indicated, ambulate in hallway 3 times daily and as needed, balanced diet and increase physical activity at discharge. (5) DVT prophylaxis Current Visit: Yes Status: Acute Plan to address problem: SCD to bilateral lower extremities while in bed, prophylactic heparin (6) possible early onset dementia Psych was consulted per their recommendation will need home after discharge. History Interval history: Patient seen and examined informs that she wants to go home continues to complain about her daughter taken all her money. Hospitalist Physical - Physical exam Narrative exam: General appearance: Present: No acute distress, obese, disheveled - EENT Eyes: Present: PERRL ENT: hearing intact, clear oral mucosa - Neck Neck: Present: supple, normal ROM - Respiratory Respiratory effort: normal Respiratory: bilateral: CTA - Cardiovascular Heart Sounds: Present: S1 & S2. Absent: rub, click - Extremities Extremities: pulses symmetrical, No edema Peripheral Pulses: within normal limits - Abdominal General gastrointestinal: Present: soft, non-tender, non-distended, normal bowel sounds Localized gastrointestinal: tender: suprapubic Female genitourinary: Present: normal - Integumentary Integumentary: Present: clear, warm, dry - Musculoskeletal Musculoskeletal: gait normal, strength equal bilaterally - Psychiatric Psychiatric: no appropriate mood/affect, no intact judgment & insight, no memory intact, cooperative, agitated - Neurologic Neurologic: CNII-XII intact, moves all extremities - Constitutional Vitals: Temp Pulse Resp BP Pulse Ox 97.8 F 73 18 119/47 97 02/25/20 07:50 02/25/20 07:50 02/25/20 07:50 02/25/20 07:50 02/25/20 07:50 General appearance: Present: mild distress, obese, disheveled Results - Labs CBC & Chem 7: 02/22/20 04:52 02/22/20 04:52 Labs: Laboratory Last Values WBC 6.1 K/mm3 (4.5-11.0) 02/22/20 04:52 RBC 4.63 M/mm3 (3.65-5.03) 02/22/20 04:52 Hgb 13.7 gm/dl (10.1-14.3) 02/22/20 04:52 Hct 40.5 % (30.3-42.9) 02/22/20 04:52 MCV 87 fl (79-97) 02/22/20 04:52 MCH 30 pg (28-32) 02/22/20 04:52 MCHC 34 % (30-34) 02/22/20 04:52 RDW 14.2 % (13.2-15.2) 02/22/20 04:52 Plt Count 126 K/mm3 (140-440) L 02/22/20 04:52 Lymph % (Auto) 27.5 % (13.4-35.0) 02/22/20 04:52 [place] % (Auto) 9.1 % (0.0-7.3) H 02/22/20 04:52 Eos % (Auto) 1.9 % (0.0-4.3) 02/22/20 04:52 Baso % (Auto) 0.6 % (0.0-1.8) 02/22/20 04:52 Lymph # 1.7 K/mm3 (1.2-5.4) 02/22/20 04:52 [place] # 0.6 K/mm3 (0.0-0.8) 02/22/20 04:52 Eos # 0.1 K/mm3 (0.0-0.4) 02/22/20 04:52 Baso # 0.0 K/mm3 (0.0-0.1) 02/22/20 04:52 Seg Neutrophils % 60.9 % (40.0-70.0) 02/22/20 04:52 Seg Neutrophils # 3.7 K/mm3 (1.8-7.7) 02/22/20 04:52 Sodium 140 mmol/L (137-145) 02/22/20 04:52 Potassium 4.5 mmol/L (3.6-5.0) 02/22/20 04:52 Chloride 100.8 mmol/L (98-107) 02/22/20 04:52 Carbon Dioxide 21 mmol/L (22-30) L 02/22/20 04:52 Anion Gap 23 mmol/L 02/22/20 04:52 BUN 36 mg/dL (7-17) H 02/22/20 04:52 Creatinine 1.0 mg/dL (0.7-1.2) 02/22/20 04:52 Estimated GFR 53 ml/min 02/22/20 04:52 BUN/Creatinine Ratio 36 % 02/22/20 04:52 Glucose 163 mg/dL (65-100) H 02/22/20 04:52 POC Glucose 169 (70-105) H 02/22/20 03:56 Calcium 10.4 mg/dL (8.4-10.2) H 02/22/20 04:52 Total Bilirubin 0.50 mg/dL (0.1-1.2) 02/22/20 04:52 Direct Bilirubin < 0.2 mg/dL (0-0.2) 02/22/20 04:52 Indirect Bilirubin 0.3 mg/dL 02/22/20 04:52 AST 18 units/L (5-40) 02/22/20 04:52 ALT 17 units/L (7-56) 02/22/20 04:52 Alkaline Phosphatase 73 units/L (35-129) 02/22/20 04:52 Total Protein 7.1 g/dL (6.3-8.2) 02/22/20 04:52 Albumin 4.3 g/dL (3.9-5) 02/22/20 04:52 Albumin/Globulin Ratio 1.5 % 02/22/20 04:52 TSH 0.742 mlU/mL (0.270-4.200) 02/22/20 17:33 Free T4 1.42 ng/dL (0.76-1.46) 02/22/20 17:33 Urine Color Yellow (Yellow) 02/22/20 07:40 Urine Turbidity Cloudy (Clear) 02/22/20 07:40 Urine pH 8.0 (5.0-7.0) H 02/22/20 07:40 Ur Specific [place] 1.014 (1.003-1.030) 02/22/20 07:40 Urine Protein <15 mg/dl mg/dL (Negative) 02/22/20 07:40 Urine Glucose (UA) Neg mg/dL (Negative) 02/22/20 07:40 Urine Ketones Neg mg/dL (Negative) 02/22/20 07:40 Urine Blood Neg (Negative) 02/22/20 07:40 Urine Nitrite Neg (Negative) 02/22/20 07:40 Urine Bilirubin Neg (Negative) 02/22/20 07:40 Urine Urobilinogen < 2.0 mg/dL (<2.0) 02/22/20 07:40 Ur Leukocyte Esterase Tr (Negative) 02/22/20 07:40 Urine WBC (Auto) 9.0 /HPF (0.0-6.0) H 02/22/20 07:40 Urine RBC (Auto) 3.0 /HPF (0.0-6.0) 02/22/20 07:40 U Epithel Cells (Auto) 2.0 /HPF (0-13.0) 02/22/20 07:40 Urine Bacteria (Auto) 1+ /HPF (Negative) 02/22/20 07:40 Urine Mucus Few /HPF 02/22/20 07:40 Salicylates 2.3 mg/dL (2.8-20.0) L 02/22/20 04:52 Urine Opiates Screen Presumptive negative 02/22/20 07:40 Urine Methadone Screen Presumptive negative 02/22/20 07:40 Acetaminophen < 5.0 ug/mL (10.0-30.0) L 02/22/20 04:52 Ur Barbiturates Screen Presumptive negative 02/22/20 07:40 Ur Phencyclidine Scrn Presumptive negative 02/22/20 07:40 Ur Amphetamines Screen Presumptive negative 02/22/20 07:40 U Benzodiazepines Scrn Presumptive negative 02/22/20 07:40 Urine Cocaine Screen Presumptive negative 02/22/20 07:40 U Marijuana (THC) Screen Presumptive negative 02/22/20 07:40 Drugs of Abuse Note Disclamer 02/22/20 07:40 Plasma/Serum Alcohol < 0.01 % (0-0.07) 02/22/20 04:52 [place]/IV: Voiding Method Toilet IV Catheter Type [Left Hand] INT / Saline Lock Active Medications - Current Medications Current Medications: Generic Name Dose Route Start Last Admin Trade Name Freq PRN Reason Stop Dose Admin Acetaminophen 650 mg 02/22/20 12:54 02/24/20 22:18 Tylenol PO 650 mg Q4H PRN Administration Pain MILD(1-3)/Fever >100.5/HILLIARD Albuterol 2.5 mg 02/22/20 12:54 Proventil IH Q4HRT PRN Shortness Of Breath Aspirin 81 mg 02/23/20 10:00 02/24/20 09:18 Baby Aspirin PO 81 mg QDAY AMI Administration Famotidine 20 mg 02/22/20 18:00 02/24/20 17:35 Pepcid PO 20 mg QPM AMI Administration Heparin Sodium (Porcine) 5,000 unit 02/22/20 22:00 02/24/20 22:16 Heparin SUB-Q 5,000 unit Q12HR AMI Administration Ceftriaxone Sodium 1 gm in 50 mls @ 100 mls/hr 02/22/20 14:00 02/24/20 09:18 Rocephin/Ns 1 Gm/50 Ml IV 100 mls/hr Q24HR AMI Administration Protocol Levothyroxine Sodium 75 mcg 02/23/20 06:00 02/25/20 06:23 Synthroid PO 75 mcg DAILY@0600 [facility] Administration Lisinopril 5 mg 02/23/20 10:00 02/24/20 11:01 Zestril PO Not Given QDAY AMI Meloxicam 7.5 mg 02/22/20 12:55 02/23/20 23:59 Mobic PO 7.5 mg QDAY PRN Administration Pain, Moderate (4-6) Ondansetron HCl 4 mg 02/22/20 12:54 02/24/20 17:35 Zofran IV 4 mg Q8H PRN Administration Nausea And Vomiting Pravastatin Sodium 40 mg 02/22/20 22:00 02/24/20 22:16 Pravachol PO 40 mg QHS AMI Administration Sodium Chloride 10 ml 02/22/20 22:00 02/24/20 22:16 Sodium Chloride Flush Syringe 10 Ml IV 10 ml BID AMI Administration Sodium Chloride 10 ml 02/22/20 12:54 Sodium Chloride Flush Syringe 10 Ml IV PRN PRN LINE FLUSH Nutrition/Malnutrition Assess - Dietary Evaluation Nutrition/Malnutrition Findings: Nutrition Notes Start: 02/23/20 14:24 Freq: Status: Active Protocol: Document 02/23/20 14:24 LM (Rec: 02/23/20 14:26 LM [id number]) Nutrition Notes Need for Assessment generated from: bank clerk Initial or Follow up Brief Note Subjective/Other Information RN screen for skin risk. Medhat score is 21. Nutrition Intervention Revisit per MD consult or patient Sign Off request:
[2020-02-25] MEDS: HEPARIN 5,000 UNIT/1 ML VIAL SUB-Q SCH (14:24)
[2020-02-25] MEDS: MELOXICAM 7.5 MG TAB PO PRN (14:24)
[2020-02-25] MEDS: LISINOPRIL 5 MG TAB PO SCH (14:25)
[2020-02-25] MEDS: ACETAMINOPHEN 325 MG TAB PO PRN (14:39)
[2020-02-25] MEDS: cefTRIAXone/NS 1 GM/50 ML 1 GM/50 ML BAG IV SCH (14:40)
[2020-02-25] MEDS: ASPIRIN 81 MG TAB CHEW PO SCH (14:58)
--- NOTE | 2020-02-25 18:55 | Vascular Lab Report ---
DUPLEX DOPPLER LOWER EXTREMITY VEINS, BILATERAL INDICATION: dvt. TECHNIQUE: Duplex doppler imaging was performed through the veins of both lower extremities using venous poornima marjan and other maneuvers. COMPARISON: No relevant prior imaging study available. FINDINGS: Right Common femoral vein: Negative. Right Superficial femoral vein: Negative. Right Popliteal vein: Negative. Right Calf veins: Negative. Left Common femoral vein: Negative. Left Superficial femoral vein: Negative. Left Popliteal vein: Negative. Left Calf veins: Negative. Additional findings: None.. IMPRESSION: 1. No sonographic evidence for DVT in either lower extremity. Signer Name: Gurjit Silva MD Signed: 02/25/2020 6:51 PM Workstation Name: [id number]
== END 2020-02-25 17:49 | disposition home health service (06) | DRG 689 ==
LOC: ED 01:37 → 4A 12:54
PROVIDERS: ADMIT Internal Medicine; ATTEND Internal Medicine
DX: N30.00 Acute cystitis without hematuria (principal); G93.41 Metabolic encephalopathy; E66.2 Morbid (severe) obesity with alveolar hypoventilation; E87.2 Acidosis; E03.9 Hypothyroidism, unspecified; K21.9 Gastro-esophageal reflux disease without esophagitis; E78.5 Hyperlipidemia, unspecified; M19.90 Unspecified osteoarthritis, unspecified site; I25.10 Atherosclerotic heart disease of native coronary artery without angina pectoris; Z95.5 Presence of coronary angioplasty implant and graft; Z86.73 Personal history of transient ischemic attack (TIA), and cerebral infarction without residual deficits; Z88.5 Allergy status to narcotic agent; Z91.040 Latex allergy status; Z79.82 Long term (current) use of aspirin; Z79.899 Other long term (current) drug therapy; Z90.49 Acquired absence of other specified parts of digestive tract; Z90.710 Acquired absence of both cervix and uterus; I25.2 Old myocardial infarction
CPT/HCPCS: 36415; 70450; 80048; 80076; 80307; 80320; 81001; 82962; 84439; 84443; 85025; 87076; 87086; 87186; 93970; G0378; A9270-GY; G0480; J0696; J1644; J2405

== ENCOUNTER 2021-12-19 23:31 | Observation (INO) | payer MEDICARE ==
--- NOTE | 2021-12-20 00:50 | Emergency Department Report ---
<DRISS OROPEZA - Last Filed: 12/20/21 08:48> ED Fall HPI - General Chief Complaint: Fall Stated Complaint: LT LEG PAIN FROM FALL IN [place] - Related Data Home Medications Medication Instructions Recorded Confirmed Last Taken Aspirin [Aspirin BABY CHEW TAB] 81 mg PO QDAY 09/06/14 12/20/21 12/10/17 Levothyroxine [Synthroid] 75 mcg PO QDAY 09/06/14 12/20/21 12/10/17 Simvastatin 20 mg PO QDAY 09/06/14 12/20/21 12/10/17 lisinopriL [Zestril TAB] 2.5 mg PO QDAY 09/06/14 12/22/21 12/10/17 Antivert PO BID 12/22/21 12/19/21 Cholecalciferol (Vitd3)/Vit K2 500 mg PO DAILY 12/22/21 12/22/21 12/19/21 10:00 Eliquis 5 mg PO BID 12/22/21 12/22/21 12/19/21 Ferrous Sulfate 325 mg PO DAILY 12/22/21 12/22/21 12/19/21 10:00 Prozac 10 mg PO DAILY 12/22/21 12/22/21 12/19/21 10:00 traZODone 50 PO HS 12/22/21 12/19/21 10:00 Previous Rx's Medication Instructions Recorded Last Taken Type raNITIdine HCL [Zantac 300 MG TAB] 300 mg PO QPM #30 tablet 09/06/14 12/10/17 Rx Insulin Lispro [HumaLOG VIAL] 0 units SQ AC #1 vial 12/15/17 Unknown Rx Insulin NPH/Regular [NovoLIN 70/30] 6 unit SUB-Q BIDDIAB #1 vial 12/15/17 Unknown Rx Meloxicam [Mobic] 7.5 mg PO QDAY PRN #10 tablet 02/18/20 Unknown Rx Ciprofloxacin HCl [Ciprofloxacin 500 mg PO Q12HR #6 tab 02/24/20 Unknown Rx TAB] Allergies Allergy/AdvReac Type Severity Reaction Status Date / Time latex Allergy Itching Verified 12/10/17 17:03 hydrocodone AdvReac Unknown Verified 02/22/20 13:06 ED Past Medical Hx - Medications Home Medications: Home Medications Medication Instructions Recorded Confirmed Last Taken Type Aspirin [Aspirin BABY CHEW TAB] 81 mg PO QDAY 09/06/14 12/20/21 12/10/17 History Levothyroxine [Synthroid] 75 mcg PO QDAY 09/06/14 12/20/21 12/10/17 History Simvastatin 20 mg PO QDAY 09/06/14 12/20/21 12/10/17 History lisinopriL [Zestril TAB] 2.5 mg PO QDAY 09/06/14 12/22/21 12/10/17 History raNITIdine HCL [Zantac 300 MG TAB] 300 mg PO QPM #30 tablet 09/06/14 12/20/21 12/10/17 Rx Insulin Lispro [HumaLOG VIAL] 0 units SQ AC #1 vial 12/15/17 12/20/21 Unknown Rx Insulin NPH/Regular [NovoLIN 70/30] 6 unit SUB-Q BIDDIAB #1 vial 12/15/17 12/20/21 Unknown Rx Meloxicam [Mobic] 7.5 mg PO QDAY PRN #10 tablet 02/18/20 12/20/21 Unknown Rx Ciprofloxacin HCl [Ciprofloxacin 500 mg PO Q12HR #6 tab 02/24/20 12/20/21 Unknown Rx TAB] Antivert PO BID 12/22/21 12/19/21 History Cholecalciferol (Vitd3)/Vit K2 500 mg PO DAILY 12/22/21 12/22/21 12/19/21 10:00 History Eliquis 5 mg PO BID 12/22/21 12/22/21 12/19/21 History Ferrous Sulfate 325 mg PO DAILY 12/22/21 12/22/21 12/19/21 10:00 History Prozac 10 mg PO DAILY 12/22/21 12/22/21 12/19/21 10:00 History traZODone 50 PO HS 12/22/21 12/19/21 10:00 History ED Course - Consultations Consultation #1: 12/20/21 08:49 Case discussed with our with case management. Suggest that patient might need rehab since she is unable to ambulate and lives alone. Recommends admission to the hospitalist service ED Medical Decision Making - Lab Data Result diagrams: 12/20/21 02:07 12/20/21 02:07 - Medical Decision Making Patient signed out to me by previous provider. Case discussed with case management with plan to admit for rehab placement. Labs also revealed mild dehydration with normal renal function. Case discussed with hospitalist dR BARNES for admission ED Disposition Clinical Impression: History of sprain of both ankles, Edema of both lower extremities, Dehydration, Unable to ambulate Disposition: ADMITTED INPATIENT Is pt being admited?: Yes Condition: Stable Time of Disposition: 08:52 (CASE D/W dr Barnes FOR ADMISSION) <ELISA ISAAC - Last Filed: 12/22/21 22:19> ED Fall HPI - General Source: patient, EMS Mode of arrival: Stretcher - History of Present Illness Initial Comments: This 81-year-old female was in her backyard doing some work when she fell. The patient denies any dizziness or weakness prior to the fall. At this time the patient complains of some mild back pain and pain of the lower extremities bilaterally specifically the ankles. The patient apparently lives alone and cannot rely on her daughter's to her assist her. MD Complaint: fall -: Sudden Fall From: standing Place Fall Occurred: home Loss of Consciousness: none Location - Extremities: Left: Ankle (Pain noted bilaterally), Right: Ankle Severity: moderate Severity scale (0 -10): 6 Quality: sharp Context: tripped/slipped Associated Symptoms: denies, headache, neck pain, numbness, weakness, chest paint, unable to walk, lightheaded, confusion ED Review of Systems ROS: Stated complaint: LT LEG PAIN FROM FALL IN [place] Other details as noted in HPI Comment: All other systems reviewed and negative Constitutional: no symptoms reported. denies: chills, fever Eyes: denies: eye pain, eye discharge, vision change ENT: denies: ear pain, throat pain Respiratory: denies: cough, shortness of breath, wheezing Cardiovascular: denies: chest pain, palpitations Endocrine: no symptoms reported Gastrointestinal: denies: abdominal pain, nausea, diarrhea Genitourinary: denies: urgency, dysuria, discharge Musculoskeletal: joint swelling (There is pain of both ankles bilaterally with soft tissue swelling.), other (There is also evidence of edema of both lower extremities which apparently is chronic) Skin: denies: rash, lesions Psychiatric: denies: anxiety, depression, homicidal thoughts, suicidal thoughts ED Past Medical Hx - Past Medical History Previous Medical History?: Yes Hx Hypertension: Yes Hx CVA: Yes ("LIGHT STROKE") Hx Heart Attack/AMI: Yes Hx Congestive Heart Failure: No Hx Diabetes: Yes Hx Pulmonary Embolism: No Hx GERD: Yes Hx Liver Disease: No Hx Renal Disease: No Hx Arthritis: Yes Hx Seizures: No Hx Kidney Stones: No Hx Asthma: No Hx COPD: No Hx Tuberculosis: No Hx Dementia: Yes Hx HIV: No Additional medical history: "HEART PT" - Surgical History Past Surgical History?: Yes Hx Coronary Stent: Yes Hx Pacemaker: No Hx Cholecystectomy: Yes Additional Surgical History: HERNIA REPAIR. HYSTERECTOMY - Social History Smoking Status: Never Smoker Substance Use Type: None ED Physical Exam - General Limitations: Altered Mental Status General appearance: alert - Head Head exam: Present: atraumatic, normocephalic - Eye Eye exam: Present: normal appearance - ENT ENT exam: Present: mucous membranes moist - Neck Neck exam: Present: normal inspection - Respiratory Respiratory exam: Present: normal lung sounds bilaterally. Absent: respiratory distress - Cardiovascular Cardiovascular Exam: Present: regular rate, normal rhythm. Absent: systolic murmur, diastolic murmur, rubs, gallop - GI/Abdominal GI/Abdominal exam: Present: soft. Absent: tenderness - Rectal Rectal exam: Present: deferred - Extremities Exam Extremities exam: Present: full ROM, tenderness (Noted on palpation of both ankles which are swollen. There is no obvious deformity), pedal edema (Bilateral pedal edema which is chronic). Absent: calf tenderness - Back Exam Back exam: Present: normal inspection, full ROM. Absent: tenderness - Neurological Exam Neurological exam: Present: alert, oriented X3 - Psychiatric Psychiatric exam: Present: normal affect - Skin Skin exam: Present: warm, dry, intact ED Course Vital Signs 12/19/21 12/20/21 12/20/21 23:56 01:33 03:54 Temperature 98 F 97.8 F Pulse Rate 83 72 75 Respiratory 18 14 15 Rate Blood Pressure 147/82 Blood Pressure 120/46 124/46 [Left] O2 Sat by Pulse 97 98 97 Oximetry 12/20/21 12/20/21 06:28 10:51 Temperature 98.1 F Pulse Rate 83 89 Respiratory 14 16 Rate Blood Pressure Blood Pressure 103/44 122/51 [Left] O2 Sat by Pulse 98 98 Oximetry ED Medical Decision Making - Lab Data Result diagrams: 12/20/21 02:07 12/20/21 02:07 The patient's labs were reviewed and other than an elevation of her BUN all others was noted to be within normal limits. - Radiology Data Radiology results: report reviewed, image reviewed I reviewed the radiologist interpretation of the bilateral ankle x-rays. I also reviewed the patient's x-rays directly. There is notably some arthritic changes however no obvious fractures. - Medical Decision Making Since the patient has no resources and is having difficulty walking secondary to pain. The decision was made to have the patient evaluated by rn social services today. This was discussed with the patient and she agrees. The case was signed over to the oncoming emergency department physician to follow-up on the rn social services plan of care Critical care attestation.: If time is entered above; I have spent that time in minutes in the direct care of this critically ill patient, excluding procedure time. ED Disposition Is pt being admited?: Yes Does the pt Need Aspirin: No
[2021-12-20] MEDS ORDERED: KETOROLAC 30 MG/1 ML INJ IV ONE (01:30)
[2021-12-20 03:09] LABS: Alanine Aminotransferase 18 units/L (7-56); Albumin 3.7 g/dL (3.9-5); BUN/Creatinine Ratio 67; Blood Urea Nitrogen 40 mg/dL (7-17); Calcium 9.9 mg/dL (8.4-10.2); Hemolysis Index 3
[2021-12-20 03:11] LABS: Basophils % (Auto) 0.3 % (0.0-1.8); Eosinophils % (Auto) 0.2 % (0.0-4.3); Hematocrit 36.4 % (30.3-42.9); Hemoglobin 11.6 gm/dl (10.1-14.3); Lymphocytes # (Auto) 0.7 K/mm3 (1.2-5.4); Lymphocytes % (Auto) 7.3 % (13.4-35.0); Mean Corpuscular HGB Conc 32 % (30-34); Mean Corpuscular Volume 88 fl (79-97); Monocytes # (Auto) 0.6 K/mm3 (0.0-0.8); Monocytes % (Auto) 6.3 % (0.0-7.3); Platelet Count 143 K/mm3 (140-440); Red Blood Count 4.15 M/mm3 (3.65-5.03)
[2021-12-20] MEDS ORDERED: ONDANSETRON 4 MG/2 ML INJ IV PRN (09:41)
--- NOTE | 2021-12-20 09:45 | History and Physical Report ---
History of Present Illness History of present illness: HPI: This 81-year-old female with hx Hypothyroidism, GERD, HLD, Obesity Hypoventilation Syndrome, CAD S/P Stent Placement, OA, CVA, Vascular Dementia, Depressed Mood was in her backyard doing some work when she fell. The patient denies any dizziness or weakness prior to the fall. At this time the patient complains of some mild back pain and pain of the lower extremities bilaterally specifically the ankles. The patient apparently lives alone and cannot rely on her daughter's to her assist her. Admit to [facility] bed. PMhx:with Hypothyroidism, GERD, HLD, Obesity Hypoventilation Syndrome, CAD S/P Stent Placement, OA, CVA, Vascular Dementia, Depressed Mood , MD PSHx: elissa, hysterectomy, pci w/stent SHx: , denies smoking, ETOH, recs drugs Fhx: HTN Medications and Allergies Allergies Allergy/AdvReac Type Severity Reaction Status Date / Time latex Allergy Itching Verified 12/10/17 17:03 hydrocodone AdvReac Unknown Verified 02/22/20 13:06 Home Medications Medication Instructions Recorded Confirmed Last Taken Type Aspirin [Aspirin BABY CHEW TAB] 81 mg PO QDAY 09/06/14 02/25/20 12/10/17 History Levothyroxine [Synthroid] 75 mcg PO QDAY 09/06/14 02/25/20 12/10/17 History Simvastatin 20 mg PO QDAY 09/06/14 02/25/20 12/10/17 History lisinopriL [Zestril TAB] 5 mg PO QDAY 09/06/14 02/25/20 12/10/17 History raNITIdine HCL [Zantac 300 MG TAB] 300 mg PO QPM #30 tablet 09/06/14 02/25/20 12/10/17 Rx Insulin Lispro [HumaLOG VIAL] 0 units SQ AC #1 vial 12/15/17 02/25/20 Unknown Rx Insulin NPH/Regular [NovoLIN 70/30] 6 unit SUB-Q BIDDIAB #1 vial 12/15/17 02/25/20 Unknown Rx Meloxicam [Mobic] 7.5 mg PO QDAY PRN #10 tablet 02/18/20 02/25/20 Unknown Rx Ciprofloxacin HCl [Ciprofloxacin 500 mg PO Q12HR #6 tab 02/24/20 Unknown Rx TAB] Active Meds: Active Medications Acetaminophen (Acetaminophen 325 Mg Tab) 650 mg PO Q4H PRN PRN Reason: Pain MILD(1-3)/Fever >100.5/HILLIARD Ondansetron HCl (Ondansetron 4 Mg/2 Ml Inj) 4 mg IV Q8H PRN PRN Reason: Nausea And Vomiting Sodium Chloride (Sodium Chloride 0.9% 10 Ml Flush Syringe) 10 ml IV BID AMI Sodium Chloride (Sodium Chloride 0.9% 10 Ml Flush Syringe) 10 ml IV PRN PRN PRN Reason: LINE FLUSH Exam - Physical Exam Narrative exam: - General Limitations: Altered Mental Status General appearance: alert - Head Head exam: Present: atraumatic, normocephalic - Eye Eye exam: Present: normal appearance - ENT ENT exam: Present: mucous membranes moist - Neck Neck exam: Present: normal inspection - Respiratory Respiratory exam: Present: normal lung sounds bilaterally. Absent: respiratory distress - Cardiovascular Cardiovascular Exam: Present: regular rate, normal rhythm. Absent: systolic murmur, diastolic murmur, rubs, gallop - GI/Abdominal GI/Abdominal exam: Present: soft. Absent: tenderness - Rectal Rectal exam: Present: deferred - Extremities Exam Extremities exam: Present: full ROM, tenderness (Noted on palpation of both ankles which are swollen. There is no obvious deformity), pedal edema (Bilateral pedal edema which is chronic). Absent: calf tenderness - Back Exam Back exam: Present: normal inspection, full ROM. Absent: tenderness - Neurological Exam Neurological exam: Present: alert, oriented X3 - Psychiatric Psychiatric exam: Present: normal affect - Skin Skin exam: Present: warm, dry, intact - Constitutional Vitals: Temp Pulse Resp BP Pulse Ox 97.8 F 83 14 103/44 98 12/20/21 01:33 12/20/21 06:28 12/20/21 06:28 12/20/21 06:28 12/20/21 06:28 Results - Labs CBC & Chem 7: 12/20/21 02:07 12/20/21 02:07 Labs: Laboratory Last Values WBC 9.1 K/mm3 (4.5-11.0) 12/20/21 02:07 RBC 4.15 M/mm3 (3.65-5.03) 12/20/21 02:07 Hgb 11.6 gm/dl (10.1-14.3) 12/20/21 02:07 Hct 36.4 % (30.3-42.9) 12/20/21 02:07 MCV 88 fl (79-97) 12/20/21 02:07 MCH 28 pg (28-32) 12/20/21 02:07 MCHC 32 % (30-34) 12/20/21 02:07 RDW 16.0 % (13.2-15.2) H 12/20/21 02:07 Plt Count 143 K/mm3 (140-440) 12/20/21 02:07 Lymph % (Auto) 7.3 % (13.4-35.0) L 12/20/21 02:07 [place] % (Auto) 6.3 % (0.0-7.3) 12/20/21 02:07 Eos % (Auto) 0.2 % (0.0-4.3) 12/20/21 02:07 Baso % (Auto) 0.3 % (0.0-1.8) 12/20/21 02:07 Lymph # (Auto) 0.7 K/mm3 (1.2-5.4) L 12/20/21 02:07 [place] # (Auto) 0.6 K/mm3 (0.0-0.8) 12/20/21 02:07 Eos # (Auto) 0.0 K/mm3 (0.0-0.4) 12/20/21 02:07 Baso # (Auto) 0.0 K/mm3 (0.0-0.1) 12/20/21 02:07 Seg Neutrophils % 85.9 % (40.0-70.0) H 12/20/21 02:07 Seg Neutrophils # 7.8 K/mm3 (1.8-7.7) H 12/20/21 02:07 Sodium 140 mmol/L (137-145) 12/20/21 02:07 Potassium 4.2 mmol/L (3.6-5.0) 12/20/21 02:07 Chloride 104.6 mmol/L (98-107) 12/20/21 02:07 Carbon Dioxide 22 mmol/L (22-30) 12/20/21 02:07 Anion Gap 18 mmol/L 12/20/21 02:07 BUN 40 mg/dL (7-17) H 12/20/21 02:07 Creatinine 0.6 mg/dL (0.6-1.2) 12/20/21 02:07 Estimated GFR > 60 ml/min 12/20/21 02:07 BUN/Creatinine Ratio 67 % 12/20/21 02:07 Glucose 184 mg/dL (65-100) H 12/20/21 02:07 Calcium 9.9 mg/dL (8.4-10.2) 12/20/21 02:07 Total Bilirubin 0.60 mg/dL (0.1-1.2) 12/20/21 02:07 AST 21 units/L (5-40) 12/20/21 02:07 ALT 18 units/L (7-56) 12/20/21 02:07 Alkaline Phosphatase 75 units/L (35-129) 12/20/21 02:07 Total Protein 6.5 g/dL (6.3-8.2) 12/20/21 02:07 Albumin 3.7 g/dL (3.9-5) L 12/20/21 02:07 Albumin/Globulin Ratio 1.3 % 12/20/21 02:07 Assessment and Plan Assessment and plan: Assessment #Dehydration, renal fx normal. #Fall #Ankle sprain - XR ankle pending, does not appear fractured on my read. #Dementia #Type 2 Diabetes Mellitus #Hypertension #Hypothyroidism #Coronary artery disease with history of [place] status post stent placement #Vascular dementia #Advance care planning Disease education conducted, care plan discussed, diagnoses discussed, prognosis discussed, patient is full code, patient acknowledges understanding and agree with care plan, +30 minutes. Plan: -Resume home medications: resume home aspirin 81 mg p.o. daily, Humulin 70/30 6 units subcu twice daily, Synthroid 75 mcg p.o. daily, lisinopril 5 mg p.o. daily, ranitidine 300 mg p.o. qPM simvastatin 20 mg p.o. daily -Sliding scale insulin in addition to Humulin 70/30, Accu-Cheks AC at bedtime IV fluid rehydration Pain control: tylenol prn, toradol IV prn (avoid hydrocodone due to allergy) -PT/OT Discussed with Case management, currently working on placement as patient not be able to care for self as she has a sprained ankle. Working on SNF placement, awaiting auth which likely will not occur until Wednesday per case management. Covid test ordered. [facility], anticipate discharge on 12/22 Advance Directives: No
[2021-12-20] MEDS ORDERED: KETOROLAC 30 MG/1 ML INJ IV PRN (10:04)
[2021-12-20] MEDS ORDERED: DEXTROSE 50% IN WATER (25GM) 50 ML SYRINGE IV PRN (10:11)
[2021-12-20] MEDS ORDERED: PRAVASTATIN 40 MG TAB PO SCH (10:15)
--- NOTE | 2021-12-20 11:32 | XRay Report ---
BILATERAL ANKLE 2 VIEW(S) INDICATION / CLINICAL INFORMATION: fall COMPARISON: None available. FINDINGS: BONES / JOINT(S): No acute fracture or subluxation. No significant arthritis. SOFT TISSUES: 1.3 cm linear radiopaque foreign body underlies the anterior right calcaneus. ADDITIONAL FINDINGS: Diffuse bilateral vascular calcifications. IMPRESSION: 1. No evidence of acute fracture involving either ankle.. 2. Linear radiopaque foreign body underlies the right calcaneus compatible with wire or needle. Signer Name: Antonio Pop II, MD Signed: 12/20/2021 2:52 AM Workstation Name: [id number]
[2021-12-20] MEDS: ASPIRIN 81 MG TAB CHEW PO SCH (12:56)
[2021-12-20] MEDS: LISINOPRIL 5 MG TAB PO SCH (12:57)
[2021-12-20] MEDS: LEVOTHYROXINE 75 MCG TAB PO SCH (12:57)
[2021-12-20] MEDS: INSULIN LISPRO 100 UNIT/ML SUB-Q SCH ×3 (12:57→22:32)
[2021-12-20] MEDS: INSULIN NPH/REGULAR 70/30 INJ SUB-Q SCH (17:10)
[2021-12-20] MEDS: FAMOTIDINE 20 MG TAB PO SCH (18:11)
--- NOTE | 2021-12-21 09:02 | Progress Note ---
Assessment and Plan Assessment and plan: #Dehydrationresolved #Ground-level fall #Ankle sprain - XR ankle unremarkable for fracture #Baseline dementia #Insulin-dependent type 2 diabetes mellitusstable #Hypertension #Hypothyroidism #Coronary artery disease with history of [place] status post stent placement #Vascular dementia #Advance care planning Disease education conducted, care plan discussed, diagnoses discussed, prognosis discussed, patient is full code, patient acknowledges understanding and agree with care plan, +30 minutes. Plan: -Resume home medications: resume home aspirin 81 mg p.o. daily, Humulin 70/30 6 units subcu twice daily, Synthroid 75 mcg p.o. daily, lisinopril 5 mg p.o. daily, ranitidine 300 mg p.o. qPM simvastatin 20 mg p.o. daily -Continue sliding scale insulin in addition to Humulin 70/30, Accu-Cheks AC at bedtime IV fluid rehydration Pain control: tylenol prn, toradol IV prn (avoid hydrocodone due to allergy) -PT/OT consulted; pending recs Discussed with Case management, currently working on placement as patient not be able to care for self as she has a sprained ankle. Working on SNF placement, awaiting auth which likely will not occur until Wednesday per case management. Covid test ordered. Disposition Plan: Pending PT evaluation and possible SNF placement Total Time Spent with Patient (Minutes): 30 minutes History Interval history: No acute events overnight. Hospitalist Physical - Constitutional Vitals: Temp Pulse Resp BP Pulse Ox 98.0 F 78 18 117/33 97 12/20/21 15:48 12/20/21 23:05 12/20/21 23:05 12/20/21 23:05 12/20/21 23:13 General appearance: Present: no acute distress - EENT Eyes: Present: PERRL, EOM intact ENT: hearing intact, clear oral mucosa, dentition normal - Neck Neck: Present: supple, normal ROM - Respiratory Respiratory effort: normal Respiratory: bilateral: CTA - Cardiovascular Rhythm: regular Heart Sounds: Present: S1 & S2 - Extremities Extremities: no ischemia, pulses intact, pulses symmetrical, No edema, normal temperature, normal color Peripheral Pulses: within normal limits - Abdominal General gastrointestinal: soft, non-tender, non-distended, normal bowel sounds - Integumentary Integumentary: Present: clear, warm, dry - Psychiatric Psychiatric: appropriate mood/affect, intact judgment & insight, memory intact, cooperative - Neurologic Neurologic: CNII-XII intact - Allied Health Allied health notes reviewed: nursing Results - Labs CBC & Chem 7: 12/20/21 02:07 12/20/21 02:07 Labs: Laboratory Last Values WBC 9.1 K/mm3 (4.5-11.0) 12/20/21 02:07 RBC 4.15 M/mm3 (3.65-5.03) 12/20/21 02:07 Hgb 11.6 gm/dl (10.1-14.3) 12/20/21 02:07 Hct 36.4 % (30.3-42.9) 12/20/21 02:07 MCV 88 fl (79-97) 12/20/21 02:07 MCH 28 pg (28-32) 12/20/21 02:07 MCHC 32 % (30-34) 12/20/21 02:07 RDW 16.0 % (13.2-15.2) H 12/20/21 02:07 Plt Count 143 K/mm3 (140-440) 12/20/21 02:07 Lymph % (Auto) 7.3 % (13.4-35.0) L 12/20/21 02:07 [place] % (Auto) 6.3 % (0.0-7.3) 12/20/21 02:07 Eos % (Auto) 0.2 % (0.0-4.3) 12/20/21 02:07 Baso % (Auto) 0.3 % (0.0-1.8) 12/20/21 02:07 Lymph # (Auto) 0.7 K/mm3 (1.2-5.4) L 12/20/21 02:07 [place] # (Auto) 0.6 K/mm3 (0.0-0.8) 12/20/21 02:07 Eos # (Auto) 0.0 K/mm3 (0.0-0.4) 12/20/21 02:07 Baso # (Auto) 0.0 K/mm3 (0.0-0.1) 12/20/21 02:07 Seg Neutrophils % 85.9 % (40.0-70.0) H 12/20/21 02:07 Seg Neutrophils # 7.8 K/mm3 (1.8-7.7) H 12/20/21 02:07 Sodium 140 mmol/L (137-145) 12/20/21 02:07 Potassium 4.2 mmol/L (3.6-5.0) 12/20/21 02:07 Chloride 104.6 mmol/L (98-107) 12/20/21 02:07 Carbon Dioxide 22 mmol/L (22-30) 12/20/21 02:07 Anion Gap 18 mmol/L 12/20/21 02:07 BUN 40 mg/dL (7-17) H 12/20/21 02:07 Creatinine 0.6 mg/dL (0.6-1.2) 12/20/21 02:07 Estimated GFR > 60 ml/min 12/20/21 02:07 BUN/Creatinine Ratio 67 % 12/20/21 02:07 Glucose 184 mg/dL (65-100) H 12/20/21 02:07 POC Glucose 233 mg/dL (70-105) H 12/20/21 21:14 Calcium 9.9 mg/dL (8.4-10.2) 12/20/21 02:07 Total Bilirubin 0.60 mg/dL (0.1-1.2) 12/20/21 02:07 AST 21 units/L (5-40) 12/20/21 02:07 ALT 18 units/L (7-56) 12/20/21 02:07 Alkaline Phosphatase 75 units/L (35-129) 12/20/21 02:07 Total Protein 6.5 g/dL (6.3-8.2) 12/20/21 02:07 Albumin 3.7 g/dL (3.9-5) L 12/20/21 02:07 Albumin/Globulin Ratio 1.3 % 12/20/21 02:07 [place]/IV: Voiding Method External Female Catheter Active Medications - Current Medications Current Medications: Generic Name Dose Route Start Last Admin Trade Name Freq PRN Reason Stop Dose Admin Acetaminophen 650 mg 12/20/21 09:41 Acetaminophen 325 Mg Tab PO Q4H PRN Pain MILD(1-3)/Fever >100.5/HILLIARD Aspirin 81 mg 12/20/21 11:00 12/20/21 12:56 Aspirin 81 Mg Tab Chew PO 81 mg QDAY AMI Administration Dextrose 50 ml 12/20/21 10:11 Dextrose 50% In Water (25gm) 50 Ml Syringe IV Q30MIN PRN Hypoglycemia Protocol Famotidine 20 mg 12/20/21 18:00 12/20/21 18:11 Famotidine 20 Mg Tab PO 20 mg QPM AMI Administration Insulin Human Isoph/Insulin Regular 6 unit 12/20/21 17:00 12/20/21 17:10 Insulin Nph/Regular 70/30 Inj SUB-Q Not Given BIDDIAB AMI Insulin Human Lispro 0 unit 12/20/21 11:30 12/20/21 22:32 Insulin Lispro 100 Unit/Ml SUB-Q 3 unit ACHS AMI Administration Protocol Ketorolac Tromethamine 15 mg 12/20/21 10:04 Ketorolac 30 Mg/1 Ml Inj IV 12/25/21 10:59 Q8H PRN mod pain 4-7 Levothyroxine Sodium 75 mcg 12/20/21 11:00 12/20/21 12:57 Levothyroxine 75 Mcg Tab PO 75 mcg QDAY AMI Administration Lisinopril 5 mg 12/20/21 11:00 12/20/21 12:57 Lisinopril 5 Mg Tab PO 5 mg QDAY AMI Administration Ondansetron HCl 4 mg 12/20/21 09:41 Ondansetron 4 Mg/2 Ml Inj IV Q8H PRN Nausea And Vomiting Pravastatin Sodium 40 mg 12/21/21 10:00 Pravastatin 40 Mg Tab PO QDAY AMI Sodium Chloride 10 ml 12/20/21 10:00 12/20/21 22:11 Sodium Chloride 0.9% 10 Ml Flush Syringe IV 10 ml BID AMI Administration Sodium Chloride 10 ml 12/20/21 09:41 Sodium Chloride 0.9% 10 Ml Flush Syringe IV PRN PRN LINE FLUSH
[2021-12-21] MEDS: PRAVASTATIN 40 MG TAB PO SCH (09:34)
[2021-12-21] MEDS: INSULIN NPH/REGULAR 70/30 INJ SUB-Q SCH ×2 (09:34→18:17)
[2021-12-21] MEDS: INSULIN LISPRO 100 UNIT/ML SUB-Q SCH ×4 (09:34→22:07)
[2021-12-21] MEDS: LISINOPRIL 5 MG TAB PO SCH (09:35)
[2021-12-21] MEDS: ASPIRIN 81 MG TAB CHEW PO SCH (09:35)
[2021-12-21] MEDS: LEVOTHYROXINE 75 MCG TAB PO SCH (09:35)
[2021-12-21] MEDS: FAMOTIDINE 20 MG TAB PO SCH (18:20)
[2021-12-22] MEDS: INSULIN NPH/REGULAR 70/30 INJ SUB-Q SCH ×2 (08:00→17:00)
[2021-12-22] MEDS: INSULIN LISPRO 100 UNIT/ML SUB-Q SCH ×4 (08:38→22:44)
[2021-12-22] MEDS: ACETAMINOPHEN 325 MG TAB PO PRN ×2 (08:58→23:19)
[2021-12-22] MEDS: ASPIRIN 81 MG TAB CHEW PO SCH (08:59)
[2021-12-22] MEDS: LEVOTHYROXINE 75 MCG TAB PO SCH (08:59)
[2021-12-22] MEDS: LISINOPRIL 5 MG TAB PO SCH (08:59)
[2021-12-22] MEDS: PRAVASTATIN 40 MG TAB PO SCH (09:00)
--- NOTE | 2021-12-22 12:34 | Progress Note ---
Assessment and Plan Assessment and plan: #Dehydrationresolved #Ground-level fall #Ankle sprain - XR ankle unremarkable for fracture #Baseline dementia #Insulin-dependent type 2 diabetes mellitusstable #Hypertension #Hypothyroidism #Coronary artery disease with history of [place] status post stent placement #Vascular dementia #Advance care planning Disease education conducted, care plan discussed, diagnoses discussed, prognosis discussed, patient is full code, patient acknowledges understanding and agree with care plan, +30 minutes. Plan: -Resume home medications: resume home aspirin 81 mg p.o. daily, Humulin 70/30 6 units subcu twice daily, Synthroid 75 mcg p.o. daily, lisinopril 5 mg p.o. daily, ranitidine 300 mg p.o. qPM simvastatin 20 mg p.o. daily -Continue sliding scale insulin in addition to Humulin 70/30, Accu-Cheks AC at bedtime IV fluid rehydration Pain control: tylenol prn, toradol IV prn (avoid hydrocodone due to allergy) -PT/OT consulted; appreciate recs. Patient will need SNF versus long-term care. Case management made aware. Discussed with Case management, currently working on placement as patient not be able to care for self as she has a sprained ankle. Working on SNF placement, awaiting auth which likely will not occur until Wednesday per case management. Covid test ordered. Disposition Plan: Pending SNF placement Total Time Spent with Patient (Minutes): 30 minutes History Interval history: No acute events overnight. Hospitalist Physical - Constitutional Vitals: Temp Pulse Resp BP Pulse Ox 98.2 F 79 16 108/39 98 12/22/21 04:29 12/22/21 04:29 12/22/21 04:29 12/22/21 04:29 12/22/21 10:00 General appearance: Present: no acute distress, well-nourished - EENT Eyes: Present: PERRL, EOM intact ENT: hearing intact, clear oral mucosa, edentulous - Neck Neck: Present: supple, normal ROM - Respiratory Respiratory effort: normal - Cardiovascular Rhythm: regular Heart Sounds: Present: S1 & S2 - Extremities Extremities: no ischemia, pulses intact, pulses symmetrical, normal temperature, normal color Peripheral Pulses: within normal limits - Abdominal General gastrointestinal: soft, non-tender, non-distended, normal bowel sounds - Integumentary Integumentary: Present: clear, warm, dry - Psychiatric Psychiatric: appropriate mood/affect, cooperative - Neurologic Neurologic: CNII-XII intact - Allied Health Allied health notes reviewed: nursing Results - Labs CBC & Chem 7: 12/20/21 02:07 12/20/21 02:07 Labs: Laboratory Last Values WBC 9.1 K/mm3 (4.5-11.0) 12/20/21 02:07 RBC 4.15 M/mm3 (3.65-5.03) 12/20/21 02:07 Hgb 11.6 gm/dl (10.1-14.3) 12/20/21 02:07 Hct 36.4 % (30.3-42.9) 12/20/21 02:07 MCV 88 fl (79-97) 12/20/21 02:07 MCH 28 pg (28-32) 12/20/21 02:07 MCHC 32 % (30-34) 12/20/21 02:07 RDW 16.0 % (13.2-15.2) H 12/20/21 02:07 Plt Count 143 K/mm3 (140-440) 12/20/21 02:07 Lymph % (Auto) 7.3 % (13.4-35.0) L 12/20/21 02:07 [place] % (Auto) 6.3 % (0.0-7.3) 12/20/21 02:07 Eos % (Auto) 0.2 % (0.0-4.3) 12/20/21 02:07 Baso % (Auto) 0.3 % (0.0-1.8) 12/20/21 02:07 Lymph # (Auto) 0.7 K/mm3 (1.2-5.4) L 12/20/21 02:07 [place] # (Auto) 0.6 K/mm3 (0.0-0.8) 12/20/21 02:07 Eos # (Auto) 0.0 K/mm3 (0.0-0.4) 12/20/21 02:07 Baso # (Auto) 0.0 K/mm3 (0.0-0.1) 12/20/21 02:07 Seg Neutrophils % 85.9 % (40.0-70.0) H 12/20/21 02:07 Seg Neutrophils # 7.8 K/mm3 (1.8-7.7) H 12/20/21 02:07 Sodium 140 mmol/L (137-145) 12/20/21 02:07 Potassium 4.2 mmol/L (3.6-5.0) 12/20/21 02:07 Chloride 104.6 mmol/L (98-107) 12/20/21 02:07 Carbon Dioxide 22 mmol/L (22-30) 12/20/21 02:07 Anion Gap 18 mmol/L 12/20/21 02:07 BUN 40 mg/dL (7-17) H 12/20/21 02:07 Creatinine 0.6 mg/dL (0.6-1.2) 12/20/21 02:07 Estimated GFR > 60 ml/min 12/20/21 02:07 BUN/Creatinine Ratio 67 % 12/20/21 02:07 Glucose 184 mg/dL (65-100) H 12/20/21 02:07 POC Glucose 126 mg/dL (70-105) H 12/21/21 21:30 Calcium 9.9 mg/dL (8.4-10.2) 12/20/21 02:07 Total Bilirubin 0.60 mg/dL (0.1-1.2) 12/20/21 02:07 AST 21 units/L (5-40) 12/20/21 02:07 ALT 18 units/L (7-56) 12/20/21 02:07 Alkaline Phosphatase 75 units/L (35-129) 12/20/21 02:07 Total Protein 6.5 g/dL (6.3-8.2) 12/20/21 02:07 Albumin 3.7 g/dL (3.9-5) L 12/20/21 02:07 Albumin/Globulin Ratio 1.3 % 12/20/21 02:07 [place]/IV: Voiding Method External Female Catheter Active Medications - Current Medications Current Medications: Generic Name Dose Route Start Last Admin Trade Name Freq PRN Reason Stop Dose Admin Acetaminophen 650 mg 12/20/21 09:41 12/22/21 08:58 Acetaminophen 325 Mg Tab PO 650 mg Q4H PRN Administration Pain MILD(1-3)/Fever >100.5/HILLIARD Aspirin 81 mg 12/20/21 11:00 12/22/21 08:59 Aspirin 81 Mg Tab Chew PO 81 mg QDAY AMI Administration Dextrose 50 ml 12/20/21 10:11 Dextrose 50% In Water (25gm) 50 Ml Syringe IV Q30MIN PRN Hypoglycemia Protocol Famotidine 20 mg 12/20/21 18:00 12/21/21 18:20 Famotidine 20 Mg Tab PO 20 mg QPM AMI Administration Insulin Human Isoph/Insulin Regular 6 unit 12/20/21 17:00 12/22/21 08:00 Insulin Nph/Regular 70/30 Inj SUB-Q 6 unit BIDDIAB AMI Administration Insulin Human Lispro 0 unit 12/20/21 11:30 12/22/21 08:38 Insulin Lispro 100 Unit/Ml SUB-Q Not Given ACHS AMI Protocol Ketorolac Tromethamine 15 mg 12/20/21 10:04 Ketorolac 30 Mg/1 Ml Inj IV 12/25/21 10:59 Q8H PRN mod pain 4-7 Levothyroxine Sodium 75 mcg 12/20/21 11:00 12/22/21 08:59 Levothyroxine 75 Mcg Tab PO 75 mcg QDAY AMI Administration Lisinopril 5 mg 12/20/21 11:00 12/22/21 08:59 Lisinopril 5 Mg Tab PO 5 mg QDAY AMI Administration Ondansetron HCl 4 mg 12/20/21 09:41 Ondansetron 4 Mg/2 Ml Inj IV Q8H PRN Nausea And Vomiting Pravastatin Sodium 40 mg 12/21/21 10:00 12/22/21 09:00 Pravastatin 40 Mg Tab PO 40 mg QDAY AMI Administration Sodium Chloride 10 ml 12/20/21 10:00 12/22/21 09:00 Sodium Chloride 0.9% 10 Ml Flush Syringe IV 10 ml BID AMI Administration Sodium Chloride 10 ml 12/20/21 09:41 Sodium Chloride 0.9% 10 Ml Flush Syringe IV PRN PRN LINE FLUSH Nutrition/Malnutrition Assess - Dietary Evaluation Nutrition/Malnutrition Findings: Nutrition Notes Start: 12/21/21 15:20 Freq: Status: Active Protocol: Document 12/21/21 15:20 ALONSO (Rec: 12/21/21 15:43 ALONSO [id number]) Nutrition 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 Current Diet Mechanical Soft Diet (since B 12/21). Labs/Tests 12/20: BUN 40, Glu 184. Pertinent Medications 12/21: Insulin, Levothyroxine, others nutritionally unremarkable. 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 Weight Status Overweight Subjective/Other Information RD consult for skin risk assessment. Pt's PO intake of meals has been Good (75-100%), according to ADL and RN notes. Anticipated discharge on 12/22 , however, Pt lives alone at home, but will be placed at SNF due to ankle sprain and no family member to relay on, according to Progress notes. Pt shows unspecified dryness and redness areas of concern for skin risk at the time, according to Physical Assessment history notes. Percent of energy/protein needs met: Prescribed Mechanical Soft Diet provides for energy/ protein needs (2,048 Kcal/97 g ) during LOS. Burn Absent Trauma Present GI Symptoms None Food Allergy No Skin Integrity/Comment Unspecified dryness and redness. Current % PO Good (75-100%) Minimum of two criteria No #1 Nutrition Diagnosis No nutrition diagnosis at this time Is patient on ventilator? No Is Patient Ambulatory and/or Out of Bed No REE-([facility]-confined to bed) 1522.565 Calculation Used for Recommendations [facility] Additional Notes Protein: 1-1.2 g/Kg ABW; 68-82 g/day. Fluids: 1 ml/Kcal, or as per MD. Nutrition Intervention Revisit per MD consult or patient Sign Off request: Additional Comments Continue monitoring food tolerance, %PO intake of meals , and BM.
[2021-12-22] MEDS: FAMOTIDINE 20 MG TAB PO SCH (19:20)
[2021-12-22 23:07] VITALS: BP 120/47
[2021-12-23] MEDS: INSULIN LISPRO 100 UNIT/ML SUB-Q SCH ×2 (07:30→11:30)
--- NOTE | 2021-12-23 07:47 | Progress Note ---
Hospitalist Physical - Constitutional Vitals: Temp Pulse Resp BP Pulse Ox 98.4 F 73 16 120/47 98 12/22/21 21:11 12/22/21 21:11 12/22/21 21:11 12/22/21 21:11 12/22/21 22:00 General appearance: Present: no acute distress, well-nourished Results - Labs CBC & Chem 7: 12/20/21 02:07 12/20/21 02:07 Labs: Laboratory Last Values WBC 9.1 K/mm3 (4.5-11.0) 12/20/21 02:07 RBC 4.15 M/mm3 (3.65-5.03) 12/20/21 02:07 Hgb 11.6 gm/dl (10.1-14.3) 12/20/21 02:07 Hct 36.4 % (30.3-42.9) 12/20/21 02:07 MCV 88 fl (79-97) 12/20/21 02:07 MCH 28 pg (28-32) 12/20/21 02:07 MCHC 32 % (30-34) 12/20/21 02:07 RDW 16.0 % (13.2-15.2) H 12/20/21 02:07 Plt Count 143 K/mm3 (140-440) 12/20/21 02:07 Lymph % (Auto) 7.3 % (13.4-35.0) L 12/20/21 02:07 [place] % (Auto) 6.3 % (0.0-7.3) 12/20/21 02:07 Eos % (Auto) 0.2 % (0.0-4.3) 12/20/21 02:07 Baso % (Auto) 0.3 % (0.0-1.8) 12/20/21 02:07 Lymph # (Auto) 0.7 K/mm3 (1.2-5.4) L 12/20/21 02:07 [place] # (Auto) 0.6 K/mm3 (0.0-0.8) 12/20/21 02:07 Eos # (Auto) 0.0 K/mm3 (0.0-0.4) 12/20/21 02:07 Baso # (Auto) 0.0 K/mm3 (0.0-0.1) 12/20/21 02:07 Seg Neutrophils % 85.9 % (40.0-70.0) H 12/20/21 02:07 Seg Neutrophils # 7.8 K/mm3 (1.8-7.7) H 12/20/21 02:07 Sodium 140 mmol/L (137-145) 12/20/21 02:07 Potassium 4.2 mmol/L (3.6-5.0) 12/20/21 02:07 Chloride 104.6 mmol/L (98-107) 12/20/21 02:07 Carbon Dioxide 22 mmol/L (22-30) 12/20/21 02:07 Anion Gap 18 mmol/L 12/20/21 02:07 BUN 40 mg/dL (7-17) H 12/20/21 02:07 Creatinine 0.6 mg/dL (0.6-1.2) 12/20/21 02:07 Estimated GFR > 60 ml/min 12/20/21 02:07 BUN/Creatinine Ratio 67 % 12/20/21 02:07 Glucose 184 mg/dL (65-100) H 12/20/21 02:07 POC Glucose 199 mg/dL (70-105) H 12/22/21 21:33 Calcium 9.9 mg/dL (8.4-10.2) 12/20/21 02:07 Total Bilirubin 0.60 mg/dL (0.1-1.2) 12/20/21 02:07 AST 21 units/L (5-40) 12/20/21 02:07 ALT 18 units/L (7-56) 12/20/21 02:07 Alkaline Phosphatase 75 units/L (35-129) 12/20/21 02:07 Total Protein 6.5 g/dL (6.3-8.2) 12/20/21 02:07 Albumin 3.7 g/dL (3.9-5) L 12/20/21 02:07 Albumin/Globulin Ratio 1.3 % 12/20/21 02:07 Coronavirus (PCR) Negative (Negative) 12/22/21 08:25 [place]/IV: Voiding Method External Female Catheter Active Medications - Current Medications Current Medications: Generic Name Dose Route Start Last Admin Trade Name Freq PRN Reason Stop Dose Admin Acetaminophen 650 mg 12/20/21 09:41 12/22/21 23:19 Acetaminophen 325 Mg Tab PO 650 mg Q4H PRN Administration Pain MILD(1-3)/Fever >100.5/HILLIARD Aspirin 81 mg 12/20/21 11:00 12/22/21 08:59 Aspirin 81 Mg Tab Chew PO 81 mg QDAY AMI Administration Dextrose 50 ml 12/20/21 10:11 Dextrose 50% In Water (25gm) 50 Ml Syringe IV Q30MIN PRN Hypoglycemia Protocol Famotidine 20 mg 12/20/21 18:00 12/22/21 19:20 Famotidine 20 Mg Tab PO 20 mg QPM AMI Administration Insulin Human Isoph/Insulin Regular 6 unit 12/20/21 17:00 12/22/21 17:00 Insulin Nph/Regular 70/30 Inj SUB-Q 6 unit BIDDIAB AMI Administration Insulin Human Lispro 0 unit 12/20/21 11:30 12/22/21 22:44 Insulin Lispro 100 Unit/Ml SUB-Q 2 unit ACHS AMI Administration Protocol Ketorolac Tromethamine 15 mg 12/20/21 10:04 Ketorolac 30 Mg/1 Ml Inj IV 12/25/21 10:59 Q8H PRN mod pain 4-7 Levothyroxine Sodium 75 mcg 12/20/21 11:00 12/22/21 08:59 Levothyroxine 75 Mcg Tab PO 75 mcg QDAY AMI Administration Lisinopril 5 mg 12/20/21 11:00 12/22/21 08:59 Lisinopril 5 Mg Tab PO 5 mg QDAY AMI Administration Ondansetron HCl 4 mg 12/20/21 09:41 12/23/21 07:30 Ondansetron 4 Mg/2 Ml Inj IV 4 mg Q8H PRN Administration Nausea And Vomiting Pravastatin Sodium 40 mg 12/21/21 10:00 12/22/21 09:00 Pravastatin 40 Mg Tab PO 40 mg QDAY AMI Administration Sodium Chloride 10 ml 12/20/21 10:00 12/22/21 22:20 Sodium Chloride 0.9% 10 Ml Flush Syringe IV 10 ml BID AMI Administration Sodium Chloride 10 ml 12/20/21 09:41 Sodium Chloride 0.9% 10 Ml Flush Syringe IV PRN PRN LINE FLUSH Nutrition/Malnutrition Assess - Dietary Evaluation Nutrition/Malnutrition Findings: Nutrition Notes Start: 12/21/21 15:20 Freq: Status: Active Protocol: Document 12/21/21 15:20 ALONSO (Rec: 12/21/21 15:43 ALONSO [id number]) Nutrition Notes Need for Assessment generated from: cashier manager Current Diagnosis Coronary Artery Disease, Diabetes,Hypertension, Hyperlipidemia Other Pertinent Diagnosis Ankle Sprain, Vascular Dementia. Current Diet Mechanical Soft Diet (since B 12/21). Labs/Tests 12/20: BUN 40, Glu 184. Pertinent Medications 12/21: Insulin, Levothyroxine, others nutritionally unremarkable. 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 Weight Status Overweight Subjective/Other Information RD consult for skin risk assessment. Pt's PO intake of meals has been Good (75-100%), according to ADL and RN notes. Anticipated discharge on 12/22 , however, Pt lives alone at home, but will be placed at SNF due to ankle sprain and no family member to relay on, according to Progress notes. Pt shows unspecified dryness and redness areas of concern for skin risk at the time, according to Physical Assessment history notes. Percent of energy/protein needs met: Prescribed Mechanical Soft Diet provides for energy/ protein needs (2,048 Kcal/97 g ) during LOS. Burn Absent Trauma Present GI Symptoms None Food Allergy No Skin Integrity/Comment Unspecified dryness and redness. Current % PO Good (75-100%) Minimum of two criteria No #1 Nutrition Diagnosis No nutrition diagnosis at this time Is patient on ventilator? No Is Patient Ambulatory and/or Out of Bed No [facility] [phone] Calculation Used for Recommendations [facility] Additional Notes Protein: 1-1.2 g/Kg ABW; 68-82 g/day. Fluids: 1 ml/Kcal, or as per MD. Nutrition Intervention Revisit per MD consult or patient Sign Off request: Additional Comments Continue monitoring food tolerance, %PO intake of meals , and BM.
[2021-12-23] MEDS ORDERED: LEVOTHYROXINE 75 MCG TAB PO SCH (08:00)
[2021-12-23] MEDS: INSULIN NPH/REGULAR 70/30 INJ SUB-Q SCH (08:00)
[2021-12-23] MEDS: ACETAMINOPHEN 325 MG TAB PO PRN (08:36)
[2021-12-23] MEDS: PRAVASTATIN 40 MG TAB PO SCH ×2 (08:37→13:57)
[2021-12-23] MEDS: ASPIRIN 81 MG TAB CHEW PO SCH ×2 (08:37→13:55)
[2021-12-23] MEDS: LISINOPRIL 5 MG TAB PO SCH ×2 (08:37→13:56)
--- NOTE | 2021-12-23 12:31 | Discharge Summary ---
Providers - Providers Date of Admission: 12/20/21 09:42 Date of discharge: 12/23/21 Attending physician: TONIE RIZZO MD 12/20/21 07:35 Consult to Case Management [CONS] Urgent Services Needed at Discharge: Servomechanism Assembler Notified:: n Additional Physician Instructions: unable to care for herself at home 12/20/21 10:03 Occupational Therapy Evaluate and Treat [CONS] Routine Comment: Reason For Exam: debility, ankle sprain Physical Therapy Evaluation and Treat [CONS] Routine Comment: Reason For Exam: debility, ankle sprain Primary care physician: NANETTE GREENBERG Hospitalization Reason for admission: same level fall Condition: Stable Hospital course: 81-year-old female with history of hypothyroidism, GERD, coronary artery disease and dementia who presented after same level fall in her backyard. Bilateral x- rays of the ankles were negative for acute fracture. She is evaluated by physical therapy and decision was made to place patient in a fci facility. The patient's daughter opted to take her home and pursue SNF options as outpatient. Once clinically stable, patient was discharged home in care with daughter. Disposition: 30 STILL A PATIENT Final Discharge Diagnosis (Prints w/discharge instructions): Dehydration. Ground-level fall. Ankle sprain. Dementia. Hypothyroidism. Coronary artery disease. Insulin-dependent type 2 diabetes mellitus Time spent for discharge: 40 minutes Core Measure Documentation - Palliative Care Palliative Care/ Comfort Measures: Not Applicable - Core Measures Any of the following diagnoses?: none Exam - Physical Exam Narrative exam: GENERAL: Well-developed well-nourished. Sitting on the side of the bed in no acute distress. HEENT: Edentulous. CHEST/LUNGS: CTAB on room air HEART/CARDIOVASCULAR: RRR. No murmur, rubs or gallops appreciated. ABDOMEN: +BS. NT/ND. SKIN: No rashes noted. NEURO: No focal motor deficit. Follows all commands. MUSCULOSKELETAL: No joint effusion EXTREMITIES: BLE bandaged with venous stasis changes PSYCH: Cooperative. - Constitutional Vitals: Temp Pulse Resp BP Pulse Ox 98.4 F 73 16 120/47 97 12/22/21 21:11 12/22/21 21:11 12/22/21 21:11 12/22/21 21:11 12/23/21 07:47 Plan Care Plan Goals: Please follow with your primary care doctor. You will receive physical therapy while at home. Follow up with: NANETTE GREENBERG MD [Primary Care Provider] - 7 Days Prescriptions: Aspirin [Aspirin BABY CHEW TAB] 81 mg PO QDAY 30 Days #30 tab Insulin NPH/Regular [NovoLIN 70/30] 6 unit SUB-Q BIDDIAB 30 Days #360 units Famotidine [Pepcid] 20 mg PO QPM 30 Days #30 tablet Levothyroxine [Synthroid] 75 mcg PO QDAY 30 Days #30 tab lisinopriL [Zestril TAB] 2.5 mg PO QDAY 60 Days #30 tab
== END 2021-12-23 13:00 | disposition still patient (30) ==
LOC: ED 23:31 → INTOOBSV 12-20 09:42 → 3A 12-20 09:42
PROVIDERS: ADMIT Internal Medicine; ATTEND Student in an Organized Health Care Education/Training Program
DX: S93.401A Sprain of unspecified ligament of right ankle, initial encounter (principal); Z20.822 Contact with and (suspected) exposure to COVID-19; S93.402A Sprain of unspecified ligament of left ankle, initial encounter; I10 Essential (primary) hypertension; E86.0 Dehydration; E03.9 Hypothyroidism, unspecified; K21.9 Gastro-esophageal reflux disease without esophagitis; E66.9 Obesity, unspecified; E66.2 Morbid (severe) obesity with alveolar hypoventilation; F03.90 Unspecified dementia, unspecified severity, without behavioral disturbance, psychotic disturbance, mood disturbance, and anxiety; I25.10 Atherosclerotic heart disease of native coronary artery without angina pectoris; Z68.26 Body mass index [BMI] 26.0-26.9, adult; Z90.49 Acquired absence of other specified parts of digestive tract; Z90.710 Acquired absence of both cervix and uterus; Z95.1 Presence of aortocoronary bypass graft; Z79.899 Other long term (current) drug therapy; Z98.890 Other specified postprocedural states; W19.XXXA Unspecified fall, initial encounter; Y92.89 Other specified places as the place of occurrence of the external cause; Y93.89 Activity, other specified; Y99.8 Other external cause status
CPT/HCPCS: 36415; 73600; 80053; 82962; 85025; 96374; 97162; 97165; 99284; G0378; J2405; U0003; Q0177; Q9967; J1815

== ENCOUNTER 2022-01-06 21:29 | Observation (INO) | payer MEDICARE ==
--- NOTE | 2022-01-06 21:47 | Emergency Department Report ---
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 She has advanced stage dementia and apparently lives on her own. EMS is familiar with the patient and states that she has been seen wandering the streets on multiple occasions and frequently presses her life alert. She reports chronic pain in both of her lower legs with associated edema. -: month(s) (Several months) Quality: aching Consistency: constant Associated Symptoms: denies other symptoms Treatments Prior to Arrival: none - Related Data Home Medications Medication Instructions Recorded Confirmed Last Taken Simvastatin 20 mg PO QDAY 09/06/14 12/20/21 12/10/17 Antivert PO BID 12/22/21 12/19/21 Cholecalciferol (Vitd3)/Vit K2 500 mg PO DAILY 12/22/21 12/22/21 12/19/21 10:00 Eliquis 5 mg PO BID 12/22/21 12/22/21 12/19/21 Ferrous Sulfate 325 mg PO DAILY 12/22/21 12/22/21 12/19/21 10:00 Prozac 10 mg PO DAILY 12/22/21 12/22/21 12/19/21 10:00 traZODone 50 PO HS 12/22/21 12/19/21 10:00 Previous Rx's Medication Instructions Recorded Last Taken Type Meloxicam [Mobic] 7.5 mg PO QDAY PRN #10 tablet 02/18/20 Unknown Rx Aspirin [Aspirin BABY CHEW TAB] 81 mg PO QDAY 30 Days #30 tab 12/23/21 Unknown Rx Famotidine [Pepcid] 20 mg PO QPM 30 Days #30 tablet 12/23/21 Unknown Rx Insulin NPH/Regular [NovoLIN 70/30] 6 unit SUB-Q BIDDIAB 30 Days #360 12/23/21 Unknown Rx units Levothyroxine [Synthroid] 75 mcg PO QDAY 30 Days #30 tab 12/23/21 Unknown Rx lisinopriL [Zestril TAB] 2.5 mg PO QDAY 60 Days #30 tab 12/23/21 Unknown Rx Allergies Allergy/AdvReac Type Severity Reaction Status Date / Time latex Allergy Itching Verified 12/10/17 17:03 hydrocodone AdvReac Unknown Verified 02/22/20 13:06 ED Review of Systems ROS: Stated complaint: LOWER EXTREMITY PAIN AND SWELLING Other details as noted in HPI Comment: All other systems reviewed and negative ED Past Medical Hx - Past Medical History Hx Hypertension: Yes Hx CVA: Yes ("LIGHT STROKE") Hx Heart Attack/AMI: Yes Hx Congestive Heart Failure: No Hx Diabetes: Yes Hx Pulmonary Embolism: No Hx GERD: Yes Hx Liver Disease: No Hx Renal Disease: No Hx Arthritis: Yes Hx Seizures: No Hx Kidney Stones: No Hx Asthma: No Hx COPD: No Hx Tuberculosis: No Hx Dementia: Yes Hx HIV: No Additional medical history: "HEART PT" - Surgical History Hx Coronary Stent: Yes Hx Pacemaker: No Hx Cholecystectomy: Yes Additional Surgical History: HERNIA REPAIR. HYSTERECTOMY - Social History Smoking Status: Never Smoker Substance Use Type: None - Medications Home Medications: Home Medications Medication Instructions Recorded Confirmed Last Taken Type Simvastatin 20 mg PO QDAY 09/06/14 12/20/21 12/10/17 History Meloxicam [Mobic] 7.5 mg PO QDAY PRN #10 tablet 02/18/20 12/20/21 Unknown Rx Antivert PO BID 12/22/21 12/19/21 History Cholecalciferol (Vitd3)/Vit K2 500 mg PO DAILY 12/22/21 12/22/21 12/19/21 10:00 History Eliquis 5 mg PO BID 12/22/21 12/22/21 12/19/21 History Ferrous Sulfate 325 mg PO DAILY 12/22/21 12/22/21 12/19/21 10:00 History Prozac 10 mg PO DAILY 12/22/21 12/22/21 12/19/21 10:00 History traZODone 50 PO HS 12/22/21 12/19/21 10:00 History Aspirin [Aspirin BABY CHEW TAB] 81 mg PO QDAY 30 Days #30 tab 12/23/21 Unknown Rx Famotidine [Pepcid] 20 mg PO QPM 30 Days #30 tablet 12/23/21 Unknown Rx Insulin NPH/Regular [NovoLIN 70/30] 6 unit SUB-Q BIDDIAB 30 Days #360 12/23/21 Unknown Rx units Levothyroxine [Synthroid] 75 mcg PO QDAY 30 Days #30 tab 12/23/21 Unknown Rx lisinopriL [Zestril TAB] 2.5 mg PO QDAY 60 Days #30 tab 12/23/21 Unknown Rx ED Physical Exam - General General appearance: alert, in no apparent distress, obese, other (Disheveled/unkempt appearance) - Head Head exam: Present: atraumatic, normocephalic - Eye Eye exam: Present: normal appearance, PERRL, EOMI - Neck Neck exam: Present: normal inspection. Absent: tenderness - Respiratory Respiratory exam: Present: normal lung sounds bilaterally. Absent: respiratory distress - Cardiovascular Cardiovascular Exam: Present: regular rate, normal rhythm, normal heart sounds - GI/Abdominal GI/Abdominal exam: Present: soft. Absent: distended, tenderness - Rectal Rectal exam: Present: deferred - Neurological Exam Neurological exam: Present: alert, oriented X3, CN II-XII intact - Psychiatric Psychiatric exam: Present: normal affect, normal mood - Skin Skin exam: Present: warm, dry, intact ED Medical Decision Making - Lab Data Result diagrams: 01/06/22 22:38 01/06/22 22:38 - Medical Decision Making Labs reviewed. Patient to be admitted for correction placement. Critical care attestation.: If time is entered above; I have spent that time in minutes in the direct care of this critically ill patient, excluding procedure time. ED Disposition Clinical Impression: Advanced dementia, Encounter for correction hospice care Disposition: ADMITTED INPATIENT Is pt being admited?: Yes Does the pt Need Aspirin: No Condition: Stable
[2022-01-06 22:35] LABS: Bilirubin,Urine NEG (Negative); Blood,Urine NEG (Negative); Color,Urine Straw (Yellow); Protein,Urine <15 mg/dL mg/dL (Negative); Urobilinogen,Urine < 2.0 mg/dL (<2.0); WBC,Urine < 1.0 /HPF (0.0-6.0)
[2022-01-06 22:50] LABS: Eosinophils # (Auto) 0.1 K/mm3 (0.0-0.4); Eosinophils % (Auto) 1.2 % (0.0-4.3); Hematocrit 30.2 % (30.3-42.9); Hemoglobin 10.1 gm/dl (10.1-14.3); Lymphocytes # (Auto) 1.2 K/mm3 (1.2-5.4); Lymphocytes % (Auto) 26.6 % (13.4-35.0); Mean Corpuscular HGB Conc 33 % (30-34); Mean Corpuscular Volume 87 fl (79-97); Monocytes # (Auto) 0.4 K/mm3 (0.0-0.8); Monocytes % (Auto) 8.6 % (0.0-7.3); Platelet Count 141 K/mm3 (140-440); Red Blood Count 3.48 M/mm3 (3.65-5.03); Red Cell Distribution Width 16.3 % (13.2-15.2)
[2022-01-06 23:12] LABS: Alanine Aminotransferase 10 units/L (7-56); Albumin 3.6 g/dL (3.9-5); BUN/Creatinine Ratio 55; Blood Urea Nitrogen 55 mg/dL (7-17); Hemolysis Index 34
[2022-01-06 23:27] LABS: Bilirubin,Direct < 0.2 mg/dL (0-0.2)
[2022-01-07] MEDS ORDERED: ONDANSETRON 4 MG/2 ML INJ IV PRN (01:33)
[2022-01-07] MEDS ORDERED: DEXTROSE 50% IN WATER (25GM) 50 ML SYRINGE IV PRN (01:33)
[2022-01-07] MEDS ORDERED: MORPHINE 4 MG/1 ML INJ IV PRN (01:33)
[2022-01-07] MEDS ORDERED: ACETAMINOPHEN 325 MG TAB PO PRN (01:33)
[2022-01-07] MEDS ORDERED: MORPHINE 2 MG/1 ML INJ IV PRN (01:33)
[2022-01-07] MEDS ORDERED: MAGNESIUM HYDROXIDE (MOM) ORAL LIQD UDC PO PRN (01:33)
--- NOTE | 2022-01-07 02:03 | History and Physical Report ---
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 Patient has been seen wandering on the streets multiple occasions and frequently presses a life alert. She indicates she has been having progressive pain and swelling of her lower extremities. Patient denies any fall but indicates she has been unable to ambulate very well. She is unable to take care of herself at home. Work-up in the emergency room today, labs reveals a BUN of 55 and creatinine of 1.0. Other labs were unremarkable. Past History Past Medical History: arthritis, diabetes, GERD, hypertension, stroke, other (Dementia) Past Surgical History: cholecystectomy, PTCA, Other (HERNIA REPAIR. HYSTERECTOMY) Social history: Lives alone Family history: no significant family history Medications and Allergies Allergies Allergy/AdvReac Type Severity Reaction Status Date / Time latex Allergy Itching Verified 12/10/17 17:03 hydrocodone AdvReac Unknown Verified 02/22/20 13:06 Home Medications Medication Instructions Recorded Confirmed Last Taken Type Simvastatin 20 mg PO QDAY 09/06/14 01/07/22 12/10/17 History Meloxicam [Mobic] 7.5 mg PO QDAY PRN #10 tablet 02/18/20 01/07/22 Unknown Rx Antivert 12.5 mg PO BID 12/22/21 01/07/22 12/19/21 History Cholecalciferol (Vitd3)/Vit K2 500 mg PO DAILY 12/22/21 01/07/22 12/19/21 10:00 History Eliquis 5 mg PO BID 12/22/21 01/07/22 12/19/21 History Ferrous Sulfate 325 mg PO DAILY 12/22/21 01/07/22 12/19/21 10:00 History Prozac 10 mg PO DAILY 12/22/21 01/07/22 12/19/21 10:00 History traZODone 50 mg PO HS 12/22/21 01/07/22 12/19/21 10:00 History Aspirin [Aspirin BABY CHEW TAB] 81 mg PO QDAY 30 Days #30 tab 12/23/21 01/07/22 Unknown Rx Famotidine [Pepcid] 20 mg PO QPM 30 Days #30 tablet 12/23/21 01/07/22 Unknown Rx Insulin NPH/Regular [NovoLIN 70/30] 6 unit SUB-Q BIDDIAB 30 Days #360 12/23/21 01/07/22 Unknown Rx units Levothyroxine [Synthroid] 75 mcg PO QDAY 30 Days #30 tab 12/23/21 01/07/22 Unknown Rx lisinopriL [Zestril TAB] 2.5 mg PO QDAY 60 Days #30 tab 12/23/21 01/07/22 Unknown Rx Active Meds: Active Medications Acetaminophen (Acetaminophen 325 Mg Tab) 650 mg PO Q4H PRN PRN Reason: Pain MILD(1-3)/Fever >100.5/HILLIARD Dextrose (Dextrose 50% In Water (25gm) 50 Ml Syringe) 50 ml IV Q30MIN PRN; Pro tocol PRN Reason: Hypoglycemia Insulin Human Lispro (Insulin Lispro 100 Unit/Ml) 0 unit SUB-Q ACHS AMI; Protocol Magnesium Hydroxide (Magnesium Hydroxide (Mom) Oral Liqd Udc) 30 ml PO Q4H PRN PRN Reason: Constipation Morphine Sulfate (Morphine 2 Mg/1 Ml Inj) 2 mg IV Q4H PRN PRN Reason: Pain, Moderate (4-6) Morphine Sulfate (Morphine 4 Mg/1 Ml Inj) 4 mg IV Q4H PRN PRN Reason: Pain , Severe (7-10) Ondansetron HCl (Ondansetron 4 Mg/2 Ml Inj) 4 mg IV Q8H PRN PRN Reason: Nausea And Vomiting Sodium Chloride (Sodium Chloride 0.9% 10 Ml Flush Syringe) 10 ml IV BID AMI Sodium Chloride (Sodium Chloride 0.9% 10 Ml Flush Syringe) 10 ml IV PRN PRN PRN Reason: LINE FLUSH Review of Systems All systems: negative (Lower extremity pain and swelling) Exam - Constitutional Vitals: Temp Pulse Resp BP Pulse Ox 131/57 100 01/07/22 01:15 01/07/22 01:15 General appearance: Present: no acute distress, well-nourished - EENT Eyes: Present: PERRL, EOM intact. Absent: scleral icterus ENT: hearing intact, clear oral mucosa, dentition normal - Neck Neck: Present: supple, normal ROM - Respiratory Respiratory effort: normal Respiratory: bilateral: CTA - Cardiovascular Rhythm: regular Heart Sounds: Present: S1 & S2. Absent: gallop, systolic murmur, diastolic murmur, rub, click - Extremities Extremities: no ischemia, pulses intact, pulses symmetrical, normal temperature, normal color, Full ROM Extremity abnormal: edema (3+ derek. lower extremity edema) Peripheral Pulses: within normal limits - Abdominal General gastrointestinal: Present: soft, non-tender, non-distended, normal bowel sounds. Absent: mass - Integumentary Integumentary: Present: clear, warm, dry, normal turgor. Absent: rash - Musculoskeletal Musculoskeletal: strength equal bilaterally - Psychiatric Psychiatric: appropriate mood/affect, intact judgment & insight, memory intact, cooperative - Neurologic Neurologic: CNII-XII intact, no focal deficits, moves all extremities Results - Labs CBC & Chem 7: 01/06/22 22:38 04 22:38 Labs: Abnormal lab results 01/06/22 01/06/22 Range/Units 22:38 22:38 WBC 4.4 L (4.5-11.0) K/mm3 RBC 3.48 L (3.65-5.03) M/mm3 Hct 30.2 L (30.3-42.9) % RDW 16.3 H (13.2-15.2) % [place] % (Auto) 8.6 H (0.0-7.3) % Carbon Dioxide 20 L (22-30) mmol/L BUN 55 H (7-17) mg/dL Glucose 168 H (65-100) mg/dL Total Protein 6.1 L (6.3-8.2) g/dL Albumin 3.6 L (3.9-5) g/dL Assessment and Plan - Patient Problems (1) Encounter for retirement hospice care Current Visit: Yes Status: Acute Plan to address problem: Consult placed to case management for evaluation for possible placement. (2) Advanced dementia Current Visit: Yes Status: Acute Plan to address problem: We will continue routine home medications. (3) Diabetes Current Visit: No Status: Acute Plan to address problem: Patient placed on sliding scale insulin. We will monitor Accu-Cheks closely. (4) Edema of both lower extremities Current Visit: No Status: Acute Plan to address problem: Will encourage elevation of lower extremities. We will consider diuretics if no improvement. (5) DVT prophylaxis Current Visit: No Status: Acute Plan to address problem: Patient placed on subcutaneous heparin. (6) Full code status Current Visit: Yes Status: Acute Plan to address problem: Patient is full code.
[2022-01-07] MEDS: INSULIN LISPRO 100 UNIT/ML SUB-Q SCH ×4 (08:39→21:42)
[2022-01-07] MEDS ORDERED: MECLIZINE 12.5 MG PO SCH (11:15)
[2022-01-07] MEDS ORDERED: PROZAC 10 MG PO SCH (11:15)
[2022-01-07] MEDS ORDERED: NON-FORMULARY EACH (Simvastatin [Simvastatin] 20 MG Tablet) PO SCH (11:15)
[2022-01-07] MEDS ORDERED: NON-FORMULARY EACH (Eliquis 5 MG) PO SCH (11:15)
[2022-01-07] MEDS ORDERED: MECLIZINE 12.5 MG TAB PO PRN (12:00)
--- NOTE | 2022-01-07 12:20 | Event Note ---
Date: 01/07/22 Patient seen and examined this morning. Patient has no complaints and is looking for resources in her home. Uses walker to ambulate, cooks and cleans for herself. Currently her daughter lives with her. Awaiting physical therapy evaluation due to patient reporting multiple falls. Will discharge after PT evaluation.
[2022-01-07] MEDS: ASPIRIN 81 MG TAB CHEW PO SCH (13:19)
[2022-01-07] MEDS: LEVOTHYROXINE 75 MCG TAB PO SCH ×2 (13:20)
[2022-01-07] MEDS: FLUoxetine 10 MG TAB PO SCH (13:21)
[2022-01-07] MEDS: LISINOPRIL 5 MG TAB PO SCH (13:22)
[2022-01-07] MEDS ORDERED: HEPARIN 5,000 UNIT/1 ML VIAL SUB-Q SCH (14:00)
[2022-01-07] MEDS: MECLIZINE 12.5 MG TAB PO SCH ×2 (15:05→21:41)
[2022-01-07] MEDS: APIXABAN 5 MG TAB PO SCH ×2 (17:32→21:50)
[2022-01-07] MEDS ORDERED: FAMOTIDINE 20 MG TAB PO SCH (18:00)
[2022-01-07] MEDS ORDERED: traZODone 50 MG TAB PO SCH (22:00)
[2022-01-07] MEDS ORDERED: PRAVASTATIN 40 MG TAB PO SCH (22:00)
[2022-01-07] MEDS ORDERED: NON-FORMULARY EACH (Trazodone 50 MG) PO SCH (22:00)
[2022-01-08] MEDS: LEVOTHYROXINE 75 MCG TAB PO SCH (06:28)
[2022-01-08] MEDS: INSULIN LISPRO 100 UNIT/ML SUB-Q SCH ×2 (08:21→12:44)
[2022-01-08 08:27] LABS: Basophils % (Auto) 0.5 % (0.0-1.8); Eosinophils % (Auto) 1.1 % (0.0-4.3); Hematocrit 30.6 % (30.3-42.9); Hemoglobin 10.5 gm/dl (10.1-14.3); Lymphocytes # (Auto) 1.1 K/mm3 (1.2-5.4); Lymphocytes % (Auto) 26.7 % (13.4-35.0); Mean Corpuscular HGB Conc 34 % (30-34); Mean Corpuscular Volume 86 fl (79-97); Monocytes # (Auto) 0.3 K/mm3 (0.0-0.8); Monocytes % (Auto) 7.9 % (0.0-7.3); Platelet Count 128 K/mm3 (140-440); Red Blood Count 3.55 M/mm3 (3.65-5.03); Red Cell Distribution Width 16.2 % (13.2-15.2)
[2022-01-08 08:56] LABS: Blood Urea Nitrogen 27 mg/dL (7-17); Calcium 8.6 mg/dL (8.4-10.2); Hemolysis Index 6
[2022-01-08] MEDS: MECLIZINE 12.5 MG TAB PO SCH (09:24)
[2022-01-08] MEDS: APIXABAN 5 MG TAB PO SCH (09:25)
[2022-01-08] MEDS: FLUoxetine 10 MG TAB PO SCH (09:25)
[2022-01-08] MEDS: LISINOPRIL 5 MG TAB PO SCH (09:26)
[2022-01-08 09:53] LABS: BUN/Creatinine Ratio 39
--- NOTE | 2022-01-08 11:33 | Discharge Summary ---
Providers - Providers Date of Admission: 01/07/22 01:33 Date of discharge: 01/08/22 Attending physician: TONIE RIZZO MD 01/07/22 01:33 Consult to Dietitian/Nutrition [CONS] Routine Physician Instructions: Reason For Exam: Reason for Consult: Diet education 01/07/22 02:10 Consult to Case Management [CONS] Routine Services Needed at Discharge: Other Notified:: cm notified Comment:: Inability to ambulate, lives alone, advanced dementia. NH placement 01/07/22 11:04 Physical Therapy Evaluation and Treat [CONS] Routine Comment: Reason For Exam: assess gait Primary care physician: BO BERMEO MD Hospitalization Condition: Stable Disposition: 30 STILL A PATIENT Exam - Constitutional Vitals: Temp Pulse Resp BP Pulse Ox 98.7 F 74 18 117/42 100 01/08/22 07:45 01/08/22 07:45 01/08/22 10:00 01/08/22 07:45 01/08/22 10:00 Plan Care Plan Goals: These follow-up with your primary care provider at discharge. Follow up with: BO BERMEO MD [Primary Care Provider] - 3-5 Days
[2022-01-08] MEDS: ASPIRIN 81 MG TAB CHEW PO SCH (12:45)
[2022-01-08 15:59] VITALS: BP 108/52
== END 2022-01-08 16:20 | disposition home or self-care (01) ==
LOC: ED 21:29 → 3A 01-07 01:33 → INTOOBSV 01-07 01:33 → 4A 01-07 02:25
PROVIDERS: ADMIT Internal Medicine Geriatric Medicine; ATTEND Student in an Organized Health Care Education/Training Program
DX: Z51.5 Encounter for palliative care (principal); F03.90 Unspecified dementia, unspecified severity, without behavioral disturbance, psychotic disturbance, mood disturbance, and anxiety; E11.9 Type 2 diabetes mellitus without complications; I10 Essential (primary) hypertension; R60.0 Localized edema; K21.9 Gastro-esophageal reflux disease without esophagitis; M19.90 Unspecified osteoarthritis, unspecified site; Z86.73 Personal history of transient ischemic attack (TIA), and cerebral infarction without residual deficits; Z90.49 Acquired absence of other specified parts of digestive tract; Z79.899 Other long term (current) drug therapy; Z90.710 Acquired absence of both cervix and uterus; Z98.890 Other specified postprocedural states; Z79.4 Long term (current) use of insulin; Z95.1 Presence of aortocoronary bypass graft; Z79.82 Long term (current) use of aspirin
CPT/HCPCS: 36415; 80048; 80076; 81001; 82962; 85025; 97162; 99284; G0378; Q9967; J1815

== ENCOUNTER 2022-01-13 01:35 | Emergency (ER) | payer MEDICARE ==
[2022-01-13] MEDS ORDERED: SODIUM CHLORIDE 0.9% 500 ML 500 ML IV ONE (02:03)
[2022-01-13] MEDS ORDERED: ONDANSETRON 4 MG/2 ML INJ IV ONE (02:03)
[2022-01-13] MEDS ORDERED: MIDAZOLAM 2 MG/2 ML INJ IV ONE (02:04)
--- NOTE | 2022-01-13 02:06 | Emergency Department Report ---
ED General Adult HPI - General Chief complaint: Abdominal Pain Stated complaint: ABD PAIN, BUTT PAIN Time Seen by Provider: 01/13/22 01:54 Source: patient, EMS ( EMS documentation not available at time of chart dictation ), RN notes reviewed, old records reviewed Mode of arrival: Stretcher Limitations: Other (Dementia and poor historian) - History of Present Illness Initial comments: This patient is an 81-year-old female. She has a history of dementia and psychiatric disease. She has presented to this hospital multiple times recently for social reasons. She presents to the ER today with EMS with a complaint of abdominal pain and buttock pain. On review of systems, the patient is confused and demented. She answers yes to essentially every single review of systems question. She thinks that she fell a few days ago but is not sure. She thinks that she is having headache. She thinks that she is having chest pain. She thinks that she is having abdominal pain. She denies extremity weakness and numbness. She does not know who called 911. She is not sure if she is having urinary symptoms. She is not accompanied by friends or family at this time for collateral information or additional information. As per review of recent discharge summary, patient's daughter, Nisa Woodall [id number] has been contacted via phone, and she has noticed a progressive decline in the patient's mental status, also has noted that the patient has schizophrenia, and that the patient has reported been working with primary care and psychologist for dementia. Currently lives alone and has been working to find permanent custodial placement. Previously, she indicated that she would like the patient to be discharged either home with hospice, or inpatient hospice. -: unknown Location: head, chest, abdomen - Related Data Home Medications Medication Instructions Recorded Confirmed Last Taken Simvastatin 20 mg PO QDAY 09/06/14 01/07/22 12/10/17 Antivert 12.5 mg PO BID 12/22/21 01/07/22 12/19/21 Cholecalciferol (Vitd3)/Vit K2 500 mg PO DAILY 12/22/21 01/07/22 12/19/21 10:00 Eliquis 5 mg PO BID 12/22/21 01/07/22 12/19/21 Ferrous Sulfate 325 mg PO DAILY 12/22/21 01/07/22 12/19/21 10:00 Prozac 10 mg PO DAILY 12/22/21 01/07/22 12/19/21 10:00 traZODone 50 mg PO HS 12/22/21 01/07/22 12/19/21 10:00 Previous Rx's Medication Instructions Recorded Last Taken Type Meloxicam [Mobic] 7.5 mg PO QDAY PRN #10 tablet 02/18/20 Unknown Rx Aspirin [Aspirin BABY CHEW TAB] 81 mg PO QDAY 30 Days #30 tab 12/23/21 Unknown Rx Famotidine [Pepcid] 20 mg PO QPM 30 Days #30 tablet 12/23/21 Unknown Rx Insulin NPH/Regular [NovoLIN 70/30] 6 unit SUB-Q BIDDIAB 30 Days #360 12/23/21 Unknown Rx units Levothyroxine [Synthroid] 75 mcg PO QDAY 30 Days #30 tab 12/23/21 Unknown Rx lisinopriL [Zestril TAB] 2.5 mg PO QDAY 60 Days #30 tab 12/23/21 Unknown Rx FLUoxetine [PROzac] 10 mg PO QDAY tablet 01/08/22 Unknown Rx Allergies Allergy/AdvReac Type Severity Reaction Status Date / Time latex Allergy Itching Verified 12/10/17 17:03 hydrocodone AdvReac Unknown Verified 02/22/20 13:06 ED Review of Systems ROS: Stated complaint: ABD PAIN, BUTT PAIN Other details as noted in HPI Comment: Unobtainable due to pts medical conditions Constitutional: denies: fever Cardiovascular: chest pain Gastrointestinal: abdominal pain Neurological: headache, confusion ED Past Medical Hx - Past Medical History Previous Medical History?: Yes Hx Hypertension: Yes Hx CVA: Yes ("LIGHT STROKE") Hx Heart Attack/AMI: Yes Hx Congestive Heart Failure: No Hx Diabetes: Yes Hx Pulmonary Embolism: No Hx GERD: Yes Hx Liver Disease: No Hx Renal Disease: No Hx Arthritis: Yes Hx Seizures: No Hx Kidney Stones: No Hx Asthma: No Hx COPD: No Hx Tuberculosis: No Hx Dementia: Yes Hx HIV: No Additional medical history: "HEART PT" - Surgical History Past Surgical History?: Yes Hx Coronary Stent: Yes Hx Pacemaker: No Hx Cholecystectomy: Yes Additional Surgical History: HERNIA REPAIR. HYSTERECTOMY - Social History Smoking Status: Never Smoker - Medications Home Medications: Home Medications Medication Instructions Recorded Confirmed Last Taken Type Simvastatin 20 mg PO QDAY 09/06/14 01/07/2212/10/18 History Meloxicam [Mobic] 7.5 mg PO QDAY PRN #10 tablet 02/18/20 01/07/22 Unknown Rx Antivert 12.5 mg PO BID 12/22/21 01/07/22 12/19/21 History Cholecalciferol (Vitd3)/Vit K2 500 mg PO DAILY 12/22/21 01/07/22 12/19/21 10:00 History Eliquis 5 mg PO BID 12/22/21 01/07/22 12/19/21 History Ferrous Sulfate 325 mg PO DAILY 12/22/21 01/07/22 12/19/21 10:00 History Prozac 10 mg PO DAILY 12/22/21 01/07/22 12/19/21 10:00 History traZODone 50 mg PO HS 12/22/21 01/07/22 12/19/21 10:00 History Aspirin [Aspirin BABY CHEW TAB] 81 mg PO QDAY 30 Days #30 tab 12/23/21 01/07/22 Unknown Rx Famotidine [Pepcid] 20 mg PO QPM 30 Days #30 tablet 12/23/21 01/07/22 Unknown Rx Insulin NPH/Regular [NovoLIN 70/30] 6 unit SUB-Q BIDDIAB 30 Days #360 12/23/21 01/07/22 Unknown Rx units Levothyroxine [Synthroid] 75 mcg PO QDAY 30 Days #30 tab 12/23/21 01/07/22 Unknown Rx lisinopriL [Zestril TAB] 2.5 mg PO QDAY 60 Days #30 tab 12/23/21 01/07/22 Unknown Rx FLUoxetine [PROzac] 10 mg PO QDAY tablet 01/08/22 Unknown Rx ED Physical Exam - General Limitations: Other (Demented and a poor historian) General appearance: alert, anxious - Head Head exam: Present: atraumatic, normocephalic - Eye Eye exam: Present: normal appearance, EOMI. Absent: nystagmus - ENT ENT exam: Present: normal exam, normal orophraynx, mucous membranes moist, normal external ear exam, other (Patient is edentulous) - Neck Neck exam: Present: normal inspection, full ROM. Absent: tenderness, meningismus - Respiratory Respiratory exam: Present: normal lung sounds bilaterally. Absent: respiratory distress, wheezes, rales, rhonchi, stridor, decreased breath sounds - Cardiovascular Cardiovascular Exam: Present: regular rate, normal rhythm, normal heart sounds. Absent: bradycardia, tachycardia, irregular rhythm, systolic murmur, diastolic murmur, rubs, gallop - GI/Abdominal GI/Abdominal exam: Present: soft, tenderness, other (Patient initially winces when abdomen is examined. Then, indicates that her abdomen is not hurting her). Absent: distended, guarding, rebound, rigid, pulsatile mass - Rectal Rectal exam: Absent: normal inspection (There is a pressure wound noted on the sacrum) - Extremities Exam Extremities exam: Present: full ROM, pedal edema (2+ edema noted in the bilateral lower extremities), other (2+ pulses noted in the bilateral upper and lower extremities. There is no palpable cord. negative Homans sign. Muscular compartments are soft. The pelvis is stable.). Absent: normal inspection (Chronic venous stasis changes noted in the bilateral lower extremities), calf tenderness - Back Exam Back exam: Present: normal inspection. Absent: tenderness, CVA tenderness (R), CVA tenderness (L), paraspinal tenderness, vertebral tenderness - Neurological Exam Neurological exam: Present: alert (The patient is awake to name. The patient follows commands. The patient moves 4 extremities. The patient is confused and demented) - Psychiatric Psychiatric exam: Present: anxious - Skin Skin exam: Present: warm, dry, intact, normal color. Absent: rash ED Course Vital Signs 01/13/22 04:17 Temperature 97.8 F Pulse Rate 79 Respiratory 20 Rate Blood Pressure 139/65 [Left] O2 Sat by Pulse 96 Oximetry - Reevaluation(s) Reevaluation #1: 01/13/22 03:27 Differential diagnosis, including but not limited to: Closed head injury, intra- abdominal injury, thoracic injury, colitis, diverticulitis, perforation, obstruction, renal colic, urinary tract infection, dementia Assessment and plan: 81-year-old female, who is confused and demented, presenting initially with buttock pain and abdominal pain. Answers yes to many questions on review of systems. Place patient on radiation monitor. Obtain appropriate laboratory studies, EKG, x-ray of the chest, urinalysis, noncontrast CT scan of the brain, and CT scan abdomen pelvis. We will also try discussed with family, and obtain additional history. 01/13/22 05:07 Patient resting comfortably in stretcher. CT scan of the brain negative for acute findings. X-ray the chest negative for acute findings. Laboratory studies essentially unremarkable for acute findings. CT scan abdomen pelvis demonstrates number of chronic appearing findings which do not require emergent intervention. Called up the patient's daughter, Ms. Nisa Woodall, [phone]. I extensively discussed the patient's history, physical, laboratory studies and imaging studies, and specifically advised her of the concerning findings on CT scan, suggestive of possible renal and/or hepatic neoplasm. Ms. Woodall informs me that the patient was not able to qualify for hospice, for various reasons after her recent admission and hospitalization. The patient is currently living by herself, at home, and does not have home hospice, nursing care, or skilled care. At the moment, the patient is a full code. Ms. Woodall also provides consent for straight catheter urine sample acquisition. The patient had a negative urinalysis last week. Plan is to reengage case management, to coordinate with family to arrange for safe and appropriate disposition. Ms. Woodall lives by herself in a trilevel complex with multiple stairs, and is not able to take the patient home by herself. There is another family member in [facility], who "works a lot" as per the patient's daughter. Home medications reconciled. Care will be transferred to the oncoming ER physician, to follow-up on urinalysis, and case management. At this point time, the patient does not require medical admission or hospitalization. Ideally to be discharged home with home health care, penitentiary care, or custodial. We will defer to case management to arrange ED Medical Decision Making - Lab Data Result diagrams: 01/13/22 03:24 01/13/22 02:32 Lab Results 01/13/22 01/13/22 01/13/22 Range/Units 02:32 02:32 02:32 PT 12.0 L (12.2-14.9) Sec. INR 0.81 L (0.87-1.13) Sodium 140 (137-145) mmol/L Potassium 4.4 (3.6-5.0) mmol/L Chloride 105.3 (98-107) mmol/L Carbon Dioxide 21 L (22-30) mmol/L Anion Gap 18 mmol/L BUN 31 H (7-17) mg/dL Creatinine 0.6 (0.6-1.2) mg/dL Estimated GFR > 60 ml/min BUN/Creatinine Ratio 52 % Glucose 157 H (65-100) mg/dL Calcium 9.5 (8.4-10.2) mg/dL Total Bilirubin 0.50 (0.1-1.2) mg/dL Direct Bilirubin < 0.2 (0-0.2) mg/dL Indirect Bilirubin 0.3 mg/dL AST 13 (5-40) units/L ALT 11 (7-56) units/L Alkaline Phosphatase 102 (35-129) units/L Troponin T < 0.010 (0.00-0.029) ng/mL Total Protein 6.9 (6.3-8.2) g/dL Albumin 3.9 (3.9-5) g/dL Albumin/Globulin Ratio 1.3 % Lipase 33 (13-60) units/L Salicylates < 0.3 L (2.8-20.0) mg/dL Acetaminophen (10.0-30.0) ug/mL Plasma/Serum Alcohol (0-0.07) % 01/13/22 01/13/22 Range/Units 02:32 02:32 PT (12.2-14.9) Sec. INR (0.87-1.13) Sodium (137-145) mmol/L Potassium (3.6-5.0) mmol/L Chloride (98-107) mmol/L Carbon Dioxide (22-30) mmol/L Anion Gap mmol/L BUN (7-17) mg/dL Creatinine (0.6-1.2) mg/dL Estimated GFR ml/min BUN/Creatinine Ratio % Glucose (65-100) mg/dL Calcium (8.4-10.2) mg/dL Total Bilirubin (0.1-1.2) mg/dL Direct Bilirubin (0-0.2) mg/dL Indirect Bilirubin mg/dL AST (5-40) units/L ALT (7-56) units/L Alkaline Phosphatase (35-129) units/L Troponin T (0.00-0.029) ng/mL Total Protein (6.3-8.2) g/dL Albumin (3.9-5) g/dL Albumin/Globulin Ratio % Lipase (13-60) units/L Salicylates (2.8-20.0) mg/dL Acetaminophen 5.0 L (10.0-30.0) ug/mL Plasma/Serum Alcohol < 0.01 (0-0.07) % Vital Signs 01/13/22 04:17 Temperature 97.8 F Pulse Rate 79 Respiratory 20 Rate Blood Pressure 139/65 [Left] O2 Sat by Pulse 96 Oximetry - EKG Data -: EKG Interpreted by In EKG shows normal: sinus rhythm Rate: normal - EKG Data 01/13/22 03:29 EKG appears to be grossly unchanged when compared to prior EKG from February 2020 The EKG is interpreted by myself at 02: 4 0 Sinus rhythm, rate 77 bpm. There is a sinus arrhythmia. 77 bpm. Normal axis, left bundle branch block, poor R progression, QTC 4 7 2 ms, extensive motion artifact. 01/13/22 03:31 - Radiology Data Radiology results: pending, report reviewed, image reviewed CT HEAD WITHOUT CONTRAST INDICATION / CLINICAL INFORMATION: Fall with a closed head injury. TECHNIQUE: CT head was performed without administration of intravenous contrast. All CT scans at this location are performed using CT dose reduction for ALARA by means of automated exposure control. COMPARISON: CT brain 02/27/2020 FINDINGS: CEREBRAL HEMISPHERES: Generalized atrophy and bilateral regions of periventricular white matter hypoattenuation compatible with microvascular ischemia are demonstrated. Faint bilateral basal ganglia calcifications appear stable. No midline shift. Ventricles are within normal alfredo its of size for age. HEMORRHAGE: None. CEREBELLUM / BRAINSTEM: No significant abnormality. ORBITS: No significant abnormality. SOFT TISSUES: No significant abnormality. SKULL: No significant abnormality. PARANASAL SINUSES / MASTOID AIR CELLS: Normal as visualized. ADDITIONAL FINDINGS: None. IMPRESSION: 1. Stable senescent changes without evidence of superimposed acute intracranial pathology. Signer Name: Antonio Pop II, MD Signed: 01/13/2022 3:37 AM Workstation Name: [id number] CHEST 1 VIEW INDICATION / CLINICAL INFORMATION: hx of cp. COMPARISON: Chest x- ray 02/27/2020 FINDINGS: SUPPORT DEVICES: None. HEART / MEDIASTINUM: No significant abnormality. LUNGS / PLEURA: No significant pulmonary or pleural abnormality. BONES: No significant osseous abnormality. ADDITIONAL FINDINGS: No significant additional findings. IMPRESSION: 1. No active cardiopulmonary disease. Signer Name: Antonio Pop II, MD Signed: 01/13/2022 1:19 AM Workstation Name: [id number] CT ABDOMEN AND PELVIS WITH CONTRAST INDICATION / CLINICAL INFORMATION: Pt complains of abdominal pain. TECHNIQUE: Axial CT images were obtained through the abdomen and pelvis after 100 cc Omnipaque [address] scans at this location are performed using CT dose reduction for ALARA by means of automated exposure control. COMPARISON: None available. FINDINGS: LOWER CHEST: 3-4 mm noncalcified pulmonary nodule right lower lobe. No acute findings within the lower chest. Mild cardiomegaly. LIVER: Along the anterior margin of segment II, there is a heterogeneous appearing hypoattenuating lesion of the liver measuring 3.8 x 3.0 cm. GALLBLADDER: Cholecystectomy. BILE DUCTS: Prominence of intra and extrahepatic biliary ducts is demonstrated, nonspecific finding in the setting of previous cholecystectomy. SPLEEN: No significant abnormality. PANCREAS: No significant abnormality. 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 RIGHT KIDNEY / URETER: No significant abnormality. LEFT KIDNEY / URETER: Heterogeneously enhancing solid cortical mass mid to upper lateral cortex measures 2.9 x 1.9 cm, appearance worrisome for solid cortical neoplasm. Additional calyceal cast is noted within the upper pole calyx. STOMACH / DUODENUM / SMALL BOWEL: Small hiatal hernia. Additional mild/moderate thickening of the distal gastric antral wall. No small bowel obstruction. COLON: Diverticulosis without acute inflammation. APPENDIX: No significant abnormality. PERITONEUM: Extensive mesh application along the anterior peritoneum is demonstrated. Some regions of fat necrosis appear present and otherwise no significant complication from placement suggested. LYMPH NODES: No significant adenopathy. AORTA / ARTERIES: Mild to moderate diffuse intimal calcification of the aorta and iliofemoral vessels as well as ectasia of the iliac vessels present. IVC / VEINS: The splenic vein is diffusely enlarged and tortuous suggesting elevated pressures. URINARY BLADDER: No significant abnormality. REPRODUCTIVE ORGANS: Uterus is absent. No significant adnexal abnormality. ADDITIONAL ABDOMINAL/PELVIC FINDINGS: None. SKELETAL SYSTEM: Prior left hip arthroplasty. Near total compression of L3 with moderate bony retropulsion along the posterior superior vertebral body resulting in the appearance of moderate to severe central stenosis. No suspicious osseous lesions. IMPRESSION: 1. Renal cortical lesion worrisome for cortical neoplasm, most commonly renal cell carcinoma mid upper lateral cortex left kidney as detailed. 2. Heterogeneously hypoattenuating lesion of the anterior left hepatic lobe as detailed. Appearance is not typical for hemangioma. Neoplastic process is not excluded. 3. Appearance of the splenic vein suggest portal venous hypertension. 4. Single pulmonary nodule right lower lobe. Given the findings within the left kidney, metastatic disease not excluded. 5. Nonspecific wall thickening the distal gastric antrum could reflect evidence of antral gastritis. Correlation with EGD could be considered. 6. 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 Signer Name: Antonio Pop II, MD Signed: 01/13/2022 3:34 AM Workstation Name: [id number] Critical care attestation.: If time is entered above; I have spent that time in minutes in the direct care of this critically ill patient, excluding procedure time. ED Disposition Clinical Impression: Abdominal pain, Nonspecific chest pain, Headache, Advanced dementia, History of fall, Case management patient, Abnormal CT of the abdomen Disposition: 30 STILL A PATIENT Is pt being admited?: No Does the pt Need Aspirin: No Condition: Stable Instructions: Nonspecific Chest Pain, Adult, Abdominal Pain (ED) Additional Instructions: Please follow-up with your primary care doctor within the next week. Please have your primary care doctor contact the medical records department to obtain copies of laboratory studies and radiology studies. CT scan of the abdomen pelvis suggested possible pulmonary nodule, renal cell carcinoma, and hepatic abnormality. These findings are very suspicious for cancer, tumor, malignancy. It is very important to coordinate with family and primary care doctor, to establish long-term goals of care, and advanced directives. Please continue current outpatient medications. Please return to the emergency room right away with new pain, worsened pain, migration of pain, projectile vomiting, change in mental status, confusion, inability tolerate liquid feeds, new, worsened or different symptoms not present on the initial emergency room evaluation Referrals: [facility] [Provider Group] - 3-5 Days
--- NOTE | 2022-01-13 02:24 | XRay Report ---
CHEST 1 VIEW INDICATION / CLINICAL INFORMATION: hx of cp. COMPARISON: Chest x-ray 02/27/2020 FINDINGS: SUPPORT DEVICES: None. HEART / MEDIASTINUM: No significant abnormality. LUNGS / PLEURA: No significant pulmonary or pleural abnormality. BONES: No significant osseous abnormality. ADDITIONAL FINDINGS: No significant additional findings. IMPRESSION: 1. No active cardiopulmonary disease. Signer Name: Antonio Pop II, MD Signed: 01/13/2022 2:19 AM Workstation Name: [id number]
[2022-01-13 03:00] LABS: INR 0.81 (0.87-1.13)
[2022-01-13 03:08] LABS: Alanine Aminotransferase 11 units/L (7-56); Albumin 3.9 g/dL (3.9-5); Blood Urea Nitrogen 31 mg/dL (7-17); Calcium 9.5 mg/dL (8.4-10.2); Hemolysis Index 17
[2022-01-13 03:21] LABS: BUN/Creatinine Ratio 52; Bilirubin,Direct < 0.2 mg/dL (0-0.2)
[2022-01-13 03:40] LABS: Basophils % (Auto) 0.6 % (0.0-1.8); Eosinophils % (Auto) 0.6 % (0.0-4.3); Hematocrit 33.8 % (30.3-42.9); Lymphocytes # (Auto) 1.1 K/mm3 (1.2-5.4); Lymphocytes % (Auto) 22.1 % (13.4-35.0); Mean Corpuscular HGB Conc 32 % (30-34); Mean Corpuscular Volume 88 fl (79-97); Monocytes # (Auto) 0.5 K/mm3 (0.0-0.8); Monocytes % (Auto) 10.2 % (0.0-7.3); Platelet Count 141 K/mm3 (140-440); Red Blood Count 3.86 M/mm3 (3.65-5.03); Red Cell Distribution Width 15.7 % (13.2-15.2)
[2022-01-13] MEDS ORDERED: ACETAMINOPHEN 325 MG/10.15 ML ORAL LIQD UNIT DOSE PO ONE (04:36)
[2022-01-13] MEDS ORDERED: PANTOPRAZOLE 40 MG INJ IV ONE (04:36)
--- NOTE | 2022-01-13 04:38 | Cat Scan Report ---
CT ABDOMEN AND PELVIS WITH CONTRAST INDICATION / CLINICAL INFORMATION: Pt complains of abdominal pain. TECHNIQUE: Axial CT images were obtained through the abdomen and pelvis after 100 cc Omnipaque [address] scans at this location are performed using CT dose reduction for ALARA by means of automated exposure control. COMPARISON: None available. FINDINGS: LOWER CHEST: 3-4 mm noncalcified pulmonary nodule right lower lobe. No acute findings within the lowe r chest. Mild cardiomegaly. LIVER: Along the anterior margin of segment II, there is a heterogeneous appearing hypoattenuating le marjan of the liver measuring 3.8 x 3.0 cm. GALLBLADDER: Cholecystectomy. BILE DUCTS: Prominence of intra and extrahepatic biliary ducts is demonstrated, nonspecific finding i n the setting of previous cholecystectomy. SPLEEN: No significant abnormality. PANCREAS: No significant abnormality. 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 RIGHT KIDNEY / URETER: No significant abnormality. LEFT KIDNEY / URETER: Heterogeneously enhancing solid cortical mass mid to upper lateral cortex measu res 2.9 x 1.9 cm, appearance worrisome for solid cortical neoplasm. Additional calyceal cast is noted within the upper pole calyx. STOMACH / DUODENUM / SMALL BOWEL: Small hiatal hernia. Additional mild/moderate thickening of the dis oswaldo gastric antral wall. No small bowel obstruction. COLON: Diverticulosis without acute inflammation. APPENDIX: No significant abnormality. PERITONEUM: Extensive mesh application along the anterior peritoneum is demonstrated. Some regions of fat necrosis appear present and otherwise no significant complication from placement suggested. LYMPH NODES: No significant adenopathy. AORTA / ARTERIES: Mild to moderate diffuse intimal calcification of the aorta and iliofemoral vessels as well as ectasia of the iliac vessels present. IVC / VEINS: The splenic vein is diffusely enlarged and tortuous suggesting elevated pressures. URINARY BLADDER: No significant abnormality. REPRODUCTIVE ORGANS: Uterus is absent. No significant adnexal abnormality. ADDITIONAL ABDOMINAL/PELVIC FINDINGS: None. SKELETAL SYSTEM: Prior left hip arthroplasty. Near total compression of L3 with moderate bony retropu lsion along the posterior superior vertebral body resulting in the appearance of moderate to severe c entral stenosis. No suspicious osseous lesions. IMPRESSION: 1. Renal cortical lesion worrisome for cortical neoplasm, most commonly renal cell carcinoma mid uppe r lateral cortex left kidney as detailed. 2. Heterogeneously hypoattenuating lesion of the anterior left hepatic lobe as detailed. Appearance i s not typical for hemangioma. Neoplastic process is not excluded. 3. Appearance of the splenic vein suggest portal venous hypertension. 4. Single pulmonary nodule right lower lobe. Given the findings within the left kidney, metastatic di sease not excluded. 5. Nonspecific wall thickening the distal gastric antrum could reflect evidence of antral gastritis. Correlation with EGD could be considered. 6. 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 Signer Name: Antonio Pop II, MD Signed: 01/13/2022 4:34 AM Workstation Name: [id number]
--- NOTE | 2022-01-13 04:41 | Cat Scan Report ---
CT HEAD WITHOUT CONTRAST INDICATION / CLINICAL INFORMATION: Fall with a closed head injury. TECHNIQUE: CT head was performed without administration of intravenous contrast. All CT scans at this location are performed using CT dose reduction for ALARA by means of automated exposure control. COMPARISON: CT brain 02/27/2020 FINDINGS: CEREBRAL HEMISPHERES: Generalized atrophy and bilateral regions of periventricular white matter hypoa ttenuation compatible with microvascular ischemia are demonstrated. Faint bilateral basal ganglia magdi cifications appear stable. No midline shift. Ventricles are within normal limits of size for age. HEMORRHAGE: None. CEREBELLUM / BRAINSTEM: No significant abnormality. ORBITS: No significant abnormality. SOFT TISSUES: No significant abnormality. SKULL: No significant abnormality. PARANASAL SINUSES / MASTOID AIR CELLS: Normal as visualized. ADDITIONAL FINDINGS: None. IMPRESSION: 1. Stable senescent changes without evidence of superimposed acute intracranial pathology. Signer Name: Antonio Pop II, MD Signed: 01/13/2022 4:37 AM Workstation Name: [id number]
[2022-01-13] MEDS ORDERED: LEVOTHYROXINE 75 MCG TAB PO SCH (06:00)
[2022-01-13] MEDS ORDERED: INSULIN NPH/REGULAR 70/30 INJ SUB-Q SCH (08:00)
[2022-01-13] MEDS ORDERED: FERROUS SULFATE 325 MG TAB PO SCH (10:00)
[2022-01-13] MEDS ORDERED: LISINOPRIL 5 MG TAB PO SCH (10:00)
[2022-01-13] MEDS ORDERED: NON-FORMULARY EACH (Ferrous Sulfate 325 MG) PO SCH (10:00)
[2022-01-13 10:45] LABS: Bilirubin,Urine NEG (Negative); Blood,Urine NEG (Negative); Color,Urine Yellow (Yellow); Protein,Urine <15 mg/dL mg/dL (Negative); Triple Phosphate Crystal,Urine 3+; Urobilinogen,Urine < 2.0 mg/dL (<2.0)
--- NOTE | 2022-01-13 11:34 | Electrocardiograph Report ---
[facility] Test Date: 2022-01-13 Test Time: 02:22:44 Pat Name: KRISTEN RAMAN Department: Room: Gender: F Pleater: LILIYA : 1940 Requested By: ROGELIO CORDERO Order Number: [id number] Reading MD: Arash Sultana Measurements Intervals [place] Rate: 81 P: [place]: QRS: 49 QRSD: 144 T: 164 QT: 405 QTc: 490 Interpretive Statements Atrial fibrillation with rapid ventricular response IVCD, CONSIDER ATYPICAL LBBB No previous ECG available for comparison Electronically Signed On 01-13-2022 11:34:31 EDT by Arash Sultana
--- NOTE | 2022-01-13 11:34 | Electrocardiograph Report ---
[facility] Test Date: 2022-01-13 Test Time: 02:38:12 Pat Name: KRISTEN RAMAN Department: Room: Gender: F Supervisor Sign Shop: LILIYA : 1940 Requested By: ROGELIO CORDERO Order Number: [id number] Reading MD: Arash Sultana Measurements Intervals [place] Rate: 77 P: [place]: QRS: 33 QRSD: 144 T: 65 QT: 417 QTc: 472 Interpretive Statements Atrial fibrillation Left bundle branch block No previous ECG available for comparison Electronically Signed On 01-13-2022 11:34:40 EDT by Arash Sultana
--- NOTE | 2022-01-13 16:08 | Emergency Department Report ---
Blank Doc - Documentation Documentation: 81 yo female waiting for case management dispo. Pt was originally signed out to Dr Sullivan. Pt has been seen by case management. as per case management note KRISTEN OROPEZA Female : 1940 [facility]# [id number] 01/13/22 08:23 - Cell Repairer Note by KODAK [facility]ARD[facility]J [facility]: [id number] : 1940 Patient Age: 81 SW sent home health referral to [facility]. Home Health provider to follow up with patient and pt daughter. Initialized on 01/13/22 08:23 - END OF NOTE pt is to be discharged to home with Home health referral
[2022-01-13] MEDS ORDERED: FAMOTIDINE 20 MG TAB PO SCH (18:00)
[2022-01-13 18:20] VITALS: BP 106/60
== END 2022-01-13 17:50 | disposition still patient (30) ==
LOC: ED 01:35
DX: R10.9 Unspecified abdominal pain (principal); R07.9 Chest pain, unspecified; R51.9 Headache, unspecified; L30.9 Dermatitis, unspecified; Z91.81 History of falling; Z71.89 Other specified counseling; R93.5 Abnormal findings on diagnostic imaging of other abdominal regions, including retroperitoneum
CPT/HCPCS: 36415; 70450; 71045; 74177; 80048; 80076; 81001; 82962; 83690; 84484; 85025; 85610; 93005; 96372; 96374; 96375; 99285; C9113; J7040; Q9967; 80320; Q0177; G0480; J1815

== ENCOUNTER 2022-01-18 22:53 | Emergency (ER) | payer MEDICARE ==
--- NOTE | 2022-01-18 23:59 | Emergency Department Report ---
ED General Adult HPI - General Chief complaint: Extremity Injury, Lower Stated complaint: BILATERAL LEG PAIN Time Seen by Provider: 01/18/22 23:49 Source: patient, EMS Mode of arrival: Stretcher Limitations: No Limitations - History of Present Illness Initial comments: Patient is 81 years old female with history of hypertension, diabetes and CVA. Patient with history of chronic bilateral lower extremity pain. Patient also had multiple visits for similar complaint. Patient stated that her legs have been hurting. She denied any recent injury. Patient denied any fever or chills. No other complaint. Severity scale (0 -10): 10 - Related Data Home Medications Medication Instructions Recorded Confirmed Last Taken Simvastatin 20 mg PO QDAY 09/06/14 01/07/22 12/10/17 Antivert 12.5 mg PO BID 12/22/21 01/07/22 12/19/21 Cholecalciferol (Vitd3)/Vit K2 500 mg PO DAILY 12/22/21 01/07/22 12/19/21 10:00 Eliquis 5 mg PO BID 12/22/21 01/07/22 12/19/21 Ferrous Sulfate 325 mg PO DAILY 12/22/21 01/07/22 12/19/21 10:00 Prozac 10 mg PO DAILY 12/22/21 01/07/22 12/19/21 10:00 traZODone 50 mg PO HS 12/22/21 01/07/22 12/19/21 10:00 Previous Rx's Medication Instructions Recorded Last Taken Type Meloxicam [Mobic] 7.5 mg PO QDAY PRN #10 tablet 02/18/20 Unknown Rx Aspirin [Aspirin BABY CHEW TAB] 81 mg PO QDAY 30 Days #30 tab 12/23/21 Unknown Rx Famotidine [Pepcid] 20 mg PO QPM 30 Days #30 tablet 12/23/21 Unknown Rx Insulin NPH/Regular [NovoLIN 70/30] 6 unit SUB-Q BIDDIAB 30 Days #360 12/23/21 Unknown Rx units Levothyroxine [Synthroid] 75 mcg PO QDAY 30 Days #30 tab 12/23/21 Unknown Rx lisinopriL [Zestril TAB] 2.5 mg PO QDAY 60 Days #30 tab 12/23/21 Unknown Rx FLUoxetine [PROzac] 10 mg PO QDAY tablet 01/08/22 Unknown Rx Allergies Allergy/AdvReac Type Severity Reaction Status Date / Time latex Allergy Itching Verified 12/10/17 17:03 hydrocodone AdvReac Unknown Verified 02/22/20 13:06 ED Review of Systems ROS: Stated complaint: BILATERAL LEG PAIN Other details as noted in HPI Comment: All other systems reviewed and negative Constitutional: denies: chills, fever Respiratory: denies: cough, shortness of breath, SOB with exertion, SOB at rest Cardiovascular: denies: chest pain Gastrointestinal: denies: abdominal pain Musculoskeletal: denies: back pain ED Past Medical Hx - Past Medical History Previous Medical History?: Yes Hx Hypertension: Yes Hx CVA: Yes ("LIGHT STROKE") Hx Heart Attack/AMI: Yes Hx Congestive Heart Failure: No Hx Diabetes: Yes Hx Pulmonary Embolism: No Hx GERD: Yes Hx Liver Disease: No Hx Renal Disease: No Hx Arthritis: Yes Hx Seizures: No Hx Kidney Stones: No Hx Asthma: No Hx COPD: No Hx Tuberculosis: No Hx Dementia: Yes Hx HIV: No Additional medical history: "HEART PT" - Surgical History Past Surgical History?: Yes Hx Coronary Stent: Yes Hx Pacemaker: No Hx Cholecystectomy: Yes Additional Surgical History: HERNIA REPAIR. HYSTERECTOMY - Social History Smoking Status: Never Smoker Substance Use Type: None - Medications Home Medications: Home Medications Medication Instructions Recorded Confirmed Last Taken Type Simvastatin 20 mg PO QDAY 09/06/14 01/07/22 12/10/17 History Meloxicam [Mobic] 7.5 mg PO QDAY PRN #10 tablet 02/18/20 01/07/22 Unknown Rx Antivert 12.5 mg PO BID 12/22/21 01/07/22 12/19/21 History Cholecalciferol (Vitd3)/Vit K2 500 mg PO DAILY 12/22/21 01/07/22 12/19/21 10:00 History Eliquis 5 mg PO BID 12/22/21 01/07/22 12/19/21 History Ferrous Sulfate 325 mg PO DAILY 12/22/21 01/07/22 12/19/21 10:00 History Prozac 10 mg PO DAILY 12/22/21 01/07/22 12/19/21 10:00 History traZODone 50 mg PO HS 12/22/21 01/07/22 12/19/21 10:00 History Aspirin [Aspirin BABY CHEW TAB] 81 mg PO QDAY 30 Days #30 tab 12/23/21 01/07/22 Unknown Rx Famotidine [Pepcid] 20 mg PO QPM 30 Days #30 tablet 12/23/21 01/07/22 Unknown Rx Insulin NPH/Regular [NovoLIN 70/30] 6 unit SUB-Q BIDDIAB 30 Days #360 12/23/21 01/07/22 Unknown Rx units Levothyroxine [Synthroid] 75 mcg PO QDAY 30 Days #30 tab 12/23/21 01/07/22 Unknown Rx lisinopriL [Zestril TAB] 2.5 mg PO QDAY 60 Days #30 tab 12/23/21 01/07/22 Unknown Rx FLUoxetine [PROzac] 10 mg PO QDAY tablet 01/08/22 Unknown Rx ED Physical Exam - General Limitations: No Limitations General appearance: alert, in no apparent distress - Head Head exam: Present: atraumatic, normocephalic, normal inspection - Eye Eye exam: Present: normal appearance - Neck Neck exam: Present: normal inspection - Respiratory Respiratory exam: Present: normal lung sounds bilaterally - Cardiovascular Cardiovascular Exam: Present: regular rate, normal rhythm, normal heart sounds - GI/Abdominal GI/Abdominal exam: Present: soft, normal bowel sounds. Absent: distended, tenderness, guarding, rebound, rigid, organomegaly, mass, bruit, pulsatile mass - Extremities Exam Extremities exam: Present: normal capillary refill, pedal edema. Absent: tenderness, calf tenderness - Back Exam Back exam: Present: normal inspection, full ROM. Absent: CVA tenderness (R), CVA tenderness (L) - Neurological Exam Neurological exam: Present: alert, oriented X3, CN II-XII intact - Psychiatric Psychiatric exam: Present: normal mood - Skin Skin exam: Present: warm ED Course Vital Signs 01/18/22 01/18/22 01/19/22 23:22 23:29 02:11 Temperature 98 F 97.9 F Pulse Rate 78 76 86 Respiratory 20 16 16 Rate Blood Pressure 114/58 Blood Pressure 135/59 143/58 [Left] O2 Sat by Pulse 100 96 96 Oximetry ED Medical Decision Making - Lab Data Result diagrams: 01/19/22 00:11 01/19/22 00:11 - Medical Decision Making Patient is 81 years old female with history of hypertension, diabetes and CVA. Patient with history of chronic bilateral lower extremity pain. Patient also had multiple visits for similar complaint. Patient stated that her legs have been hurting. She denied any recent injury. Patient denied any fever or chills. No other complaint. Labs reviewed and is unremarkable. Patient symptoms most likely related to peripheral neuropathy. Patient given Neurontin. I also prescribed Neurontin for the patient and advised to follow-up with primary doctor in the next 2 to 3 days and to return to the ER if she develop any new symptoms. Critical care attestation.: If time is entered above; I have spent that time in minutes in the direct care of this critically ill patient, excluding procedure time. ED Disposition Clinical Impression: Bilateral leg pain, Peripheral neuropathy Disposition: 03 HALFWAY FACILITY Is pt being admited?: No Condition: Stable Instructions: Peripheral Neuropathy Referrals: PRIMARY CARE [Referring] - 3-5 Days
[2022-01-19 00:38] LABS: Basophils % (Auto) 0.4 % (0.0-1.8); Eosinophils # (Auto) 0.1 K/mm3 (0.0-0.4); Eosinophils % (Auto) 1.4 % (0.0-4.3); Hematocrit 31.2 % (30.3-42.9); Hemoglobin 10.2 gm/dl (10.1-14.3); Lymphocytes # (Auto) 1.1 K/mm3 (1.2-5.4); Lymphocytes % (Auto) 30.7 % (13.4-35.0); Mean Corpuscular HGB Conc 33 % (30-34); Mean Corpuscular Volume 87 fl (79-97); Monocytes # (Auto) 0.3 K/mm3 (0.0-0.8); Monocytes % (Auto) 9.3 % (0.0-7.3); Platelet Count 140 K/mm3 (140-440); Red Blood Count 3.59 M/mm3 (3.65-5.03); Red Cell Distribution Width 16.1 % (13.2-15.2)
[2022-01-19 00:49] LABS: Blood Urea Nitrogen 35 mg/dL (7-17); Calcium 9.7 mg/dL (8.4-10.2); Hemolysis Index 3
[2022-01-19 01:00] LABS: BUN/Creatinine Ratio 50
[2022-01-19 02:12] VITALS: BP 143/58
[2022-01-19] MEDS ORDERED: GABAPENTIN 100 MG CAP PO ONE (02:39)
== END 2022-01-19 06:25 ==
LOC: ED 22:53
DX: M79.661 Pain in right lower leg (principal); M79.662 Pain in left lower leg; G62.9 Polyneuropathy, unspecified; I10 Essential (primary) hypertension; E11.9 Type 2 diabetes mellitus without complications; K21.9 Gastro-esophageal reflux disease without esophagitis; M19.90 Unspecified osteoarthritis, unspecified site; Z90.49 Acquired absence of other specified parts of digestive tract; Z90.89 Acquired absence of other organs; Z91.040 Latex allergy status; Z79.82 Long term (current) use of aspirin; Z79.899 Other long term (current) drug therapy
CPT/HCPCS: 36415; 80048; 85025; 99283

== ENCOUNTER 2022-03-02 23:33 | Emergency (ER) | payer MEDICARE ==
--- NOTE | 2022-03-03 00:07 | Emergency Department Report ---
ED General Adult HPI - General Stated complaint: FEET PAIN POSS CODE STEMI Time Seen by Provider: 03/02/22 23:51 - History of Present Illness Initial comments: 81 yo F with history of dementia, and lower leg edema brought in by EMS with a call lower leg pain that started today. Pt denies any chest pain or sob. Initially was called for STEMI due to LBBB on EMS 3 leads but on presentation noted it was old with no change from previous. No fever or chills reported. No other modifying or associated factors reported. - Related Data Home Medications Medication Instructions Recorded Confirmed Last Taken Simvastatin 20 mg PO QDAY 09/06/14 01/07/22 12/10/17 Antivert 12.5 mg PO BID 12/22/21 01/07/22 12/19/21 Cholecalciferol (Vitd3)/Vit K2 500 mg PO DAILY 12/22/21 01/07/22 12/19/21 10:00 Eliquis 5 mg PO BID 12/22/21 01/07/22 12/19/21 Ferrous Sulfate 325 mg PO DAILY 12/22/21 01/07/22 12/19/21 10:00 Prozac 10 mg PO DAILY 12/22/21 01/07/22 12/19/21 10:00 traZODone 50 mg PO HS 12/22/21 01/07/22 12/19/21 10:00 Previous Rx's Medication Instructions Recorded Last Taken Type Meloxicam [Mobic] 7.5 mg PO QDAY PRN #10 tablet 02/18/20 Unknown Rx Aspirin [Aspirin BABY CHEW TAB] 81 mg PO QDAY 30 Days #30 tab 12/23/21 Unknown Rx Famotidine [Pepcid] 20 mg PO QPM 30 Days #30 tablet 12/23/21 Unknown Rx Insulin NPH/Regular [NovoLIN 70/30] 6 unit SUB-Q BIDDIAB 30 Days #360 12/23/21 Unknown Rx units Levothyroxine [Synthroid] 75 mcg PO QDAY 30 Days #30 tab 12/23/21 Unknown Rx lisinopriL [Zestril TAB] 2.5 mg PO QDAY 60 Days #30 tab 12/23/21 Unknown Rx FLUoxetine [PROzac] 10 mg PO QDAY tablet 01/08/22 Unknown Rx Gabapentin 100 mg PO Q8HR #21 capsule 01/19/22 Unknown Rx Omeprazole Magnesium [PriLOSEC Otc] 20 mg PO QDAY 14 Days #14 tab NS 03/03/22 Unknown Rx Ondansetron [Zofran Odt] 4 mg PO Q8HR 5 Days #15 tab.rapdis 03/03/22 Unknown Rx NS cephALEXin [Keflex] 500 mg PO Q12HR 7 Days #14 cap NS 03/03/22 Unknown Rx Allergies Allergy/AdvReac Type Severity Reaction Status Date / Time latex Allergy Itching Verified 03/03/22 04:31 hydrocodone AdvReac Unknown Verified 03/03/22 04:31 ED Review of Systems ROS: Stated complaint: FEET PAIN POSS CODE STEMI Other details as noted in HPI Comment: All other systems reviewed and negative Respiratory: denies: cough, shortness of breath Cardiovascular: denies: chest pain Musculoskeletal: other (Right leg pain with warmth) ED Past Medical Hx - Past Medical History Hx Hypertension: Yes Hx CVA: Yes ("LIGHT STROKE") Hx Heart Attack/AMI: Yes Hx Congestive Heart Failure: No Hx Diabetes: Yes Hx Pulmonary Embolism: No Hx GERD: Yes Hx Liver Disease: No Hx Renal Disease: No Hx Arthritis: Yes Hx Seizures: No Hx Kidney Stones: No Hx Asthma: No Hx COPD: No Hx Tuberculosis: No Hx Dementia: Yes Hx HIV: No Additional medical history: "HEART PT" - Surgical History Hx Coronary Stent: Yes Hx Pacemaker: No Hx Cholecystectomy: Yes Additional Surgical History: HERNIA REPAIR. HYSTERECTOMY - Social History Smoking Status: Never Smoker Substance Use Type: None - Medications Home Medications: Home Medications Medication Instructions Recorded Confirmed Last Taken Type Simvastatin 20 mg PO QDAY 09/06/14 01/07/22 12/10/17 History Meloxicam [Mobic] 7.5 mg PO QDAY PRN #10 tablet 02/18/20 01/07/22 Unknown Rx Antivert 12.5 mg PO BID 12/22/21 01/07/22 12/19/21 History Cholecalciferol (Vitd3)/Vit K2 500 mg PO DAILY 12/22/21 01/07/22 12/19/21 10:00 History Eliquis 5 mg PO BID 12/22/21 01/07/22 12/19/21 History Ferrous Sulfate 325 mg PO DAILY 12/22/21 01/07/22 12/19/21 10:00 History Prozac 10 mg PO DAILY 12/22/21 01/07/22 12/19/21 10:00 History traZODone 50 mg PO HS 12/22/21 01/07/22 12/19/21 10:00 History Aspirin [Aspirin BABY CHEW TAB] 81 mg PO QDAY 30 Days #30 tab 12/23/21 01/07/22 Unknown Rx Famotidine [Pepcid] 20 mg PO QPM 30 Days #30 tablet 12/23/21 01/07/22 Unknown Rx Insulin NPH/Regular [NovoLIN 70/30] 6 unit SUB-Q BIDDIAB 30 Days #360 12/23/21 01/07/22 Unknown Rx units Levothyroxine [Synthroid] 75 mcg PO QDAY 30 Days #30 tab 12/23/21 01/07/22 Unknown Rx lisinopriL [Zestril TAB] 2.5 mg PO QDAY 60 Days #30 tab 12/23/21 01/07/22 Unknown Rx FLUoxetine [PROzac] 10 mg PO QDAY tablet 01/08/22 Unknown Rx Gabapentin 100 mg PO Q8HR #21 capsule 01/19/22 Unknown Rx Omeprazole Magnesium [PriLOSEC Otc] 20 mg PO QDAY 14 Days #14 tab NS 03/03/22 Unknown Rx Ondansetron [Zofran Odt] 4 mg PO Q8HR 5 Days #15 tab.rapdis 03/03/22 Unknown Rx NS cephALEXin [Keflex] 500 mg PO Q12HR 7 Days #14 cap NS 03/03/22 Unknown Rx ED Physical Exam - General Limitations: No Limitations General appearance: alert, in no apparent distress - Head Head exam: Present: normal inspection - Eye Eye exam: Present: normal appearance Pupils: Present: normal accommodation - ENT ENT exam: Present: normal exam, normal orophraynx, mucous membranes moist - Neck Neck exam: Present: normal inspection, full ROM. Absent: tenderness - Respiratory Respiratory exam: Present: normal lung sounds bilaterally. Absent: respiratory distress, accessory muscle use - Cardiovascular Cardiovascular Exam: Present: regular rate, normal rhythm, normal heart sounds - GI/Abdominal GI/Abdominal exam: Present: soft, normal bowel sounds. Absent: distended, tenderness - Extremities Exam Extremities exam: Present: normal inspection, tenderness (Noted with right lower leg with blanchable erythema), normal capillary refill, pedal edema - Back Exam Back exam: Absent: tenderness - Neurological Exam Neurological exam: Present: alert, oriented X3 - Psychiatric Psychiatric exam: Present: normal affect, normal mood - Skin Skin exam: Present: warm, normal color ED Course Vital Signs 03/02/22 03/02/22 03/03/22 23:33 23:45 00:01 Pulse Rate 80 79 Respiratory 16 14 Rate Blood Pressure 125/57 142/49 147/42 O2 Sat by Pulse 98 98 Oximetry 03/03/22 03/03/22 03/03/22 00:15 00:31 00:45 Pulse Rate 81 81 73 Respiratory 30 H 14 17 Rate Blood Pressure 147/42 147/42 147/42 O2 Sat by Pulse 99 98 Oximetry 03/03/22 03/03/22 03/03/22 01:00 01:01 01:15 Pulse Rate 68 73 Respiratory 13 17 Rate Blood Pressure 119/46 119/46 O2 Sat by Pulse 100 99 96 Oximetry 03/03/22 03/03/22 03/03/22 01:31 01:45 02:01 Pulse Rate 73 73 73 Respiratory 17 12 16 Rate Blood Pressure 119/46 119/46 126/57 O2 Sat by Pulse 100 99 96 Oximetry 03/03/22 03/03/22 03/03/22 02:15 02:31 02:45 Pulse Rate 68 84 69 Respiratory 11 L 15 17 Rate Blood Pressure 126/57 126/57 126/57 O2 Sat by Pulse 100 100 100 Oximetry 03/03/22 03/03/22 03/03/22 03:01 03:15 03:31 Pulse Rate 72 68 73 Respiratory 15 8 L 14 Rate Blood Pressure 118/42 118/42 118/42 O2 Sat by Pulse 100 100 96 Oximetry 03/03/22 03/03/22 03/03/22 03:45 04:01 04:15 Pulse Rate 74 71 67 Respiratory 19 11 L 15 Rate Blood Pressure 118/42 127/50 127/50 O2 Sat by Pulse 98 100 100 Oximetry - Reevaluation(s) Reevaluation #1: 03/03/22 00:17 Here with right lower leg pain--Noted with right lower leg with blanchable erythema--this is likely cellulitis so we will go ahead and check CBC extent of infection CMP, and D-dimer to rule out any DVT. Reevaluation #2: 03/03/22 02:08 Noted with elevated d-dimer 856 mg/dl-- so Doppler right lower leg ordered to rule out DVT-- 03/03/22 04:49 Doppler did not show any DVT so patient treatment in initial Rocephin 1g IVPB x 1 for the cellulitis-- pt noted with reassuring wbc with stable vital sign with no sign of systemic infection-- so will discharge patient home on PO keflex and close follow up with her PCP ED Medical Decision Making - Lab Data Result diagrams: 03/03/22 00:26 03/03/22 00:26 Critical care attestation.: If time is entered above; I have spent that time in minutes in the direct care of this critically ill patient, excluding procedure time. ED Disposition Clinical Impression: Cellulitis Qualifiers: Site of cellulitis: extremity Site of cellulitis of extremity: lower extremity Laterality: right Qualified Code(s): L03.115 - Cellulitis of right lower limb Disposition: HOME / SELF CARE / HOMELESS Is pt being admited?: No Does the pt Need Aspirin: No Condition: Stable Instructions: Cellulitis, Adult, [id number] Additional Instructions: Take and complete your antibiotics as prescribed It is very important you increase daily fluids to help your hydration Please call and schedule follow-up with your primary doctor in the next 3 to 5 days for progress Please do not hesitate to call or return to emergency room if your symptoms worsen Prescriptions: cephALEXin [Keflex] 500 mg PO Q12HR 7 Days #14 cap NS Omeprazole Magnesium [PriLOSEC Otc] 20 mg PO QDAY 14 Days #14 tab NS Ondansetron [Zofran Odt] 4 mg PO Q8HR 5 Days #15 tab.rapdis NS Referrals: PRIMARY CARE, [Primary Care Provider] - 3-5 Days Time of Disposition: 04:54
[2022-03-03 00:51] LABS: Basophils % (Auto) 0.6 % (0.0-1.8); Eosinophils # (Auto) 0.1 K/mm3 (0.0-0.4); Eosinophils % (Auto) 3.3 % (0.0-4.3); Hematocrit 32.7 % (30.3-42.9); Hemoglobin 10.6 gm/dl (10.1-14.3); Lymphocytes # (Auto) 1.2 K/mm3 (1.2-5.4); Lymphocytes % (Auto) 28.2 % (13.4-35.0); Mean Corpuscular HGB Conc 33 % (30-34); Mean Corpuscular Volume 88 fl (79-97); Monocytes # (Auto) 0.4 K/mm3 (0.0-0.8); Monocytes % (Auto) 9.3 % (0.0-7.3); Platelet Count 128 K/mm3 (140-440); Red Blood Count 3.73 M/mm3 (3.65-5.03); Red Cell Distribution Width 14.9 % (13.2-15.2)
[2022-03-03 01:04] LABS: INR 0.93 (0.87-1.13)
[2022-03-03 01:09] LABS: Alanine Aminotransferase 11 units/L (7-56); Albumin 3.6 g/dL (3.9-5); Blood Urea Nitrogen 38 mg/dL (7-17); Calcium 9.9 mg/dL (8.4-10.2); Hemolysis Index 12
[2022-03-03 01:13] LABS: BUN/Creatinine Ratio 54
[2022-03-03] MEDS ORDERED: cefTRIAXone/NS 1 GM/50 ML 1 GM/50 ML BAG IV ONE (04:29)
--- NOTE | 2022-03-03 05:08 | Vascular Lab Report ---
DUPLEX DOPPLER LOWER EXTREMITY VEINS, RIGHT INDICATION / CLINICAL INFORMATION: calf pain with elevated d-dimer. TECHNIQUE: Duplex doppler imaging was performed through the veins of the right lower extremity using venous comp ression and other maneuvers. COMPARISON: None available. FINDINGS: RIGHT COMMON FEMORAL VEIN: Negative. RIGHT FEMORAL VEIN: Negative. RIGHT POPLITEAL VEIN: Negative. RIGHT CALF VEINS: Negative. ADDITIONAL FINDINGS: None. IMPRESSION: 1. No sonographic evidence for DVT in the right lower extremity. Signer Name: Leo Ying MD Signed: 03/03/2022 5:03 AM Workstation Name: [id number]
[2022-03-03 05:24] VITALS: BP 121/56
--- NOTE | 2022-03-03 12:24 | History and Physical Report ---
History of Present Illness History of present illness: 81 YO Female with Hypothyroidism, GERD, HLD, Obesity Hypoventilation Syndrome, CAD S/P Stent Placement, OA, CVA, Vascular Dementia, Depressed Mood presents to ED for evaluation. Patient has tangential thinking and provides minimal history. Patient history taken from patient, ED staff, EMS staff, and medical record. 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 Patient reports difficulty with urination and bladder tenderness. EMS notified and upon arrival to the patient's home the patient was found to be in distress. The patient was transported to [facility] for further evaluation and care. Patient seen and evaluated in the emergency department. Lab and imaging studies reviewed. Patient found to have urinary tract infection complicated by metabolic encephalopathy, metabolic acidosis. Patient admitted to medical floor due to increased risk of decompensation. Patient treated with IV fluid resuscitation therapy, and IV antibiotic therapy. No reports of fever, chills, chest pain, palpitation, productive cough, skin rash, recent ill contacts, or known exposure to COVID-19. Prior admission on 12/10/2017 reviewed. All medication listed at time of admission have been reconciled. Advanced care planning conducted in ED. Past History Past Medical History: arthritis, GERD, hypothyroidism, stroke, other (See HPI) Past Surgical History: cholecystectomy, hysterectomy, hernia repair, Other (Cardiac stent placement) Social history: . denies: smoking, alcohol abuse, prescription drug abuse Family history: hypertension 81 yo F with history of dementia, and lower leg edema brought in by EMS with a call lower leg pain that started today. Pt denies any chest pain or sob. Initially was called for STEMI due to LBBB on EMS 3 leads but on presentation noted it was old with no change from previous. No fever or chills reported. No other modifying or associated factors reported. Medications and Allergies Allergies Allergy/AdvReac Type Severity Reaction Status Date / Time latex Allergy Itching Verified 03/03/22 04:31 hydrocodone AdvReac Unknown Verified 03/03/22 04:31 Home Medications Medication Instructions Recorded Confirmed Last Taken Type Simvastatin 20 mg PO QDAY 09/06/14 01/07/22 12/10/17 History Meloxicam [Mobic] 7.5 mg PO QDAY PRN #10 tablet 02/18/20 01/07/22 Unknown Rx Antivert 12.5 mg PO BID 12/22/21 01/07/22 12/19/21 History Cholecalciferol (Vitd3)/Vit K2 500 mg PO DAILY 12/22/21 01/07/22 12/19/21 10:00 History Eliquis 5 mg PO BID 12/22/21 01/07/22 12/19/21 History Ferrous Sulfate 325 mg PO DAILY 12/22/21 01/07/22 12/19/21 10:00 History Prozac 10 mg PO DAILY 12/22/21 01/07/22 12/19/21 10:00 History traZODone 50 mg PO HS 12/22/21 01/07/22 12/19/21 10:00 History Aspirin [Aspirin BABY CHEW TAB] 81 mg PO QDAY 30 Days #30 tab 12/23/21 01/07/22 Unknown Rx Famotidine [Pepcid] 20 mg PO QPM 30 Days #30 tablet 12/23/21 01/07/22 Unknown Rx Insulin NPH/Regular [NovoLIN 70/30] 6 unit SUB-Q BIDDIAB 30 Days #360 12/23/21 01/07/22 Unknown Rx units Levothyroxine [Synthroid] 75 mcg PO QDAY 30 Days #30 tab 12/23/21 01/07/22 Unknown Rx lisinopriL [Zestril TAB] 2.5 mg PO QDAY 60 Days #30 tab 12/23/21 01/07/22 Unknown Rx FLUoxetine [PROzac] 10 mg PO QDAY tablet 01/08/22 Unknown Rx Gabapentin 100 mg PO Q8HR #21 capsule 01/19/22 Unknown Rx Omeprazole Magnesium [PriLOSEC Otc] 20 mg PO QDAY 14 Days #14 tab NS 03/03/22 Unknown Rx Ondansetron [Zofran Odt] 4 mg PO Q8HR 5 Days #15 tab.rapdis 03/03/22 Unknown Rx NS cephALEXin [Keflex] 500 mg PO Q12HR 7 Days #14 cap NS 03/03/22 Unknown Rx Exam - Constitutional Vitals: Temp Pulse Resp BP Pulse Ox 65 11 L 121/56 100 03/03/22 05:01 03/03/22 05:01 03/03/22 05:01 03/03/22 05:01 HEART Score - HEART Score Troponin: Troponin T < 0.010 ng/mL (0.00-0.029) 03/03/22 00:26 Results - Labs CBC & Chem 7: 03/03/22 00:26 03/03/22 00:26 Labs: Abnormal lab results 03/03/22 03/03/22 03/03/22 Range/Units 00:26 00:26 00:26 WBC 4.4 L (4.5-11.0) K/mm3 Plt Count 128 L (140-440) K/mm3 [place] % (Auto) 9.3 H (0.0-7.3) % D-Dimer 856.55 H (0-234) ng/mlDDU Carbon Dioxide 21 L (22-30) mmol/L BUN 38 H (7-17) mg/dL Glucose 217 H (65-100) mg/dL Lactic Acid (0.7-2.0) mmol/L Total Protein 6.2 L (6.3-8.2) g/dL Albumin 3.6 L (3.9-5) g/dL 03/03/22 Range/Units 00:26 WBC (4.5-11.0) K/mm3 Plt Count (140-440) K/mm3 [place] % (Auto) (0.0-7.3) % D-Dimer (0-234) ng/mlDDU Carbon Dioxide (22-30) mmol/L BUN (7-17) mg/dL Glucose (65-100) mg/dL Lactic Acid 2.10 H* (0.7-2.0) mmol/L Total Protein (6.3-8.2) g/dL Albumin (3.9-5) g/dL
--- NOTE | 2022-03-03 12:32 | Electrocardiograph Report ---
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
--- NOTE | 2022-03-03 14:05 | Cat Scan Report ---
CTA CHEST WITH IV CONTRAST INDICATION: dypsnea CONTRAST: 100 cc Omnipaque 350 IV COMPARISON: CT abdomen and pelvis 01/13/2022 Three-plane MIP reconstructions were produced. All CT scans at this location are performed using CT d ose reduction for ALARA by means of automated exposure control. FINDINGS: No significant focal bony lesions. No significant axillary or chest wall lesions. No medias tinal or hilar masses. Moderate coronary artery calcifications. Minimal hiatal hernia. No obvious end obronchial lesions. Trace left pleural effusion. Lung cuevas show mild bilateral atelectatic changes but no definite pneumonic infiltrates. The small central right lower lobe nodule is unchanged at just under 4 mm. The lateral periphery of the right upper lobe shows a 2 mm nodule. Laterally in the left upper lobe adjacent to a small vessel is another 2 mm possible nodule. Views of the upper abdomen did not visualize the left kidney where a mass was seen previously. The ma ss along the anterior margin of the left lobe of the liver is again seen measuring a maximal diameter of 3.8 cm which is unchanged. Mild biliary prominence is unchanged. Gallbladder probably has been re moved. 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 Aorta shows mild atherosclerotic changes. Ascending aorta is ectatic with a diameter of 3.7 cm. No ev idence of dissection is seen. Good opacification of the pulmonary arterial system. No evidence of pulmonary thromboembolism. IMPRESSION: 1. No significant acute abnormalities 2. Mild pulmonary nodularity. Though small, given the abdominal abnormalities previously described in December I would suggest follow-up. 3. Stable appearance of mass along the anterior border of the left lobe of the liver 4. Stable appearance of right adrenal myelolipoma Signer Name: Jake Ortega MD Signed: 03/03/2022 2:01 PM Workstation Name: [id number]
== END 2022-03-03 19:00 | disposition home or self-care (01) ==
LOC: ED 23:33
DX: L03.115 Cellulitis of right lower limb (principal); I10 Essential (primary) hypertension; Z86.73 Personal history of transient ischemic attack (TIA), and cerebral infarction without residual deficits; E11.9 Type 2 diabetes mellitus without complications; M19.90 Unspecified osteoarthritis, unspecified site; F03.90 Unspecified dementia, unspecified severity, without behavioral disturbance, psychotic disturbance, mood disturbance, and anxiety; Z90.710 Acquired absence of both cervix and uterus; Z98.890 Other specified postprocedural states; Z88.5 Allergy status to narcotic agent; Z91.040 Latex allergy status
CPT/HCPCS: 93005; 96365; 99284; J0696; 36415; 71275; 80053; 82140; 84484; 85025; 85379; 85610; 85730; Q9967

== ENCOUNTER 2022-04-07 11:06 | Emergency (ER) | payer MEDICARE ==
--- NOTE | 2022-04-07 11:32 | Emergency Department Report ---
ED General Adult HPI - General Chief complaint: Medical Clearance Stated complaint: DEMENTIA Time Seen by Provider: 04/07/22 11:21 Source: EMS Mode of arrival: Stretcher Limitations: Other - History of Present Illness Initial comments: Patient is an 81-year-old female brought in by EMS from home with advanced dementia. EMS reports that daughter states her mother's dementia has become increasingly worse over the past several weeks. States she becomes combative at times and has increasing difficulty taking care of her at home. Patient denies any complaints. - Related Data Home Medications Medication Instructions Recorded Confirmed Last Taken Simvastatin 20 mg PO QDAY 09/06/14 01/07/22 12/10/17 Antivert 12.5 mg PO BID 12/22/21 01/07/22 12/19/21 Cholecalciferol (Vitd3)/Vit K2 500 mg PO DAILY 12/22/21 01/07/22 12/19/21 10:00 Eliquis 5 mg PO BID 12/22/21 01/07/22 12/19/21 Ferrous Sulfate 325 mg PO DAILY 12/22/21 01/07/22 12/19/21 10:00 Prozac 10 mg PO DAILY 12/22/21 01/07/22 12/19/21 10:00 traZODone 50 mg PO HS 12/22/21 01/07/22 12/19/21 10:00 Previous Rx's Medication Instructions Recorded Last Taken Type Meloxicam [Mobic] 7.5 mg PO QDAY PRN #10 tablet 02/18/20 Unknown Rx Aspirin [Aspirin BABY CHEW TAB] 81 mg PO QDAY 30 Days #30 tab 12/23/21 Unknown Rx Famotidine [Pepcid] 20 mg PO QPM 30 Days #30 tablet 12/23/21 Unknown Rx Insulin NPH/Regular [NovoLIN 70/30] 6 unit SUB-Q BIDDIAB 30 Days #360 12/23/21 Unknown Rx units Levothyroxine [Synthroid] 75 mcg PO QDAY 30 Days #30 tab 12/23/21 Unknown Rx lisinopriL [Zestril TAB] 2.5 mg PO QDAY 60 Days #30 tab 12/23/21 Unknown Rx FLUoxetine [PROzac] 10 mg PO QDAY tablet 01/08/22 Unknown Rx Gabapentin 100 mg PO Q8HR #21 capsule 01/19/22 Unknown Rx Omeprazole Magnesium [PriLOSEC Otc] 20 mg PO QDAY 14 Days #14 tab NS 03/03/22 Unknown Rx Ondansetron [Zofran Odt] 4 mg PO Q8HR 5 Days #15 tab.rapdis 03/03/22 Unknown Rx NS cephALEXin [Keflex] 500 mg PO Q12HR 7 Days #14 cap NS 03/03/22 Unknown Rx Allergies Allergy/AdvReac Type Severity Reaction Status Date / Time latex Allergy Itching Verified 03/03/22 04:31 hydrocodone AdvReac Unknown Verified 03/03/22 04:31 ED Review of Systems ROS: Stated complaint: DEMENTIA Other details as noted in HPI Constitutional: denies: chills, fever Respiratory: denies: cough, shortness of breath, wheezing Cardiovascular: denies: chest pain, palpitations Gastrointestinal: denies: abdominal pain, nausea, diarrhea Musculoskeletal: denies: back pain, joint swelling, arthralgia Skin: denies: rash, lesions Neurological: denies: headache, weakness, paresthesias ED Past Medical Hx - Past Medical History Hx Hypertension: Yes Hx CVA: Yes ("LIGHT STROKE") Hx Heart Attack/AMI: Yes Hx Congestive Heart Failure: No Hx Diabetes: Yes Hx Pulmonary Embolism: No Hx GERD: Yes Hx Liver Disease: No Hx Renal Disease: No Hx Arthritis: Yes Hx Seizures: No Hx Kidney Stones: No Hx Asthma: No Hx COPD: No Hx Tuberculosis: No Hx Dementia: Yes Hx HIV: No Additional medical history: "HEART PT" - Surgical History Past Surgical History?: Yes Hx Coronary Stent: Yes Hx Pacemaker: No Hx Cholecystectomy: Yes Additional Surgical History: HERNIA REPAIR. HYSTERECTOMY - Social History Smoking Status: Never Smoker Substance Use Type: None - Medications Home Medications: Home Medications Medication Instructions Recorded Confirmed Last Taken Type Simvastatin 20 mg PO QDAY 09/06/14 01/07/22 12/10/17 History Meloxicam [Mobic] 7.5 mg PO QDAY PRN #10 tablet 02/18/20 01/07/22 Unknown Rx Antivert 12.5 mg PO BID 12/22/21 01/07/22 12/19/21 History Cholecalciferol (Vitd3)/Vit K2 500 mg PO DAILY 12/22/21 01/07/22 12/19/21 10:00 History Eliquis 5 mg PO BID 12/22/21 01/07/22 12/19/21 History Ferrous Sulfate 325 mg PO DAILY 12/22/21 01/07/22 12/19/21 10:00 History Prozac 10 mg PO DAILY 12/22/21 01/07/22 12/19/21 10:00 History traZODone 50 mg PO HS 12/22/21 01/07/22 12/19/21 10:00 History Aspirin [Aspirin BABY CHEW TAB] 81 mg PO QDAY 30 Days #30 tab 12/23/21 01/07/22 Unknown Rx Famotidine [Pepcid] 20 mg PO QPM 30 Days #30 tablet 12/23/21 01/07/22 Unknown Rx Insulin NPH/Regular [NovoLIN 70/30] 6 unit SUB-Q BIDDIAB 30 Days #360 12/23/21 01/07/22 Unknown Rx units Levothyroxine [Synthroid] 75 mcg PO QDAY 30 Days #30 tab 12/23/21 01/07/22 Unknown Rx lisinopriL [Zestril TAB] 2.5 mg PO QDAY 60 Days #30 tab 12/23/21 01/07/22 Unknown Rx FLUoxetine [PROzac] 10 mg PO QDAY tablet 01/08/22 Unknown Rx Gabapentin 100 mg PO Q8HR #21 capsule 01/19/22 Unknown Rx Omeprazole Magnesium [PriLOSEC Otc] 20 mg PO QDAY 14 Days #14 tab NS 03/03/22 Unknown Rx Ondansetron [Zofran Odt] 4 mg PO Q8HR 5 Days #15 tab.rapdis 03/03/22 Unknown Rx NS cephALEXin [Keflex] 500 mg PO Q12HR 7 Days #14 cap NS 03/03/22 Unknown Rx ED Physical Exam - General Limitations: Other General appearance: alert, in no apparent distress - Head Head exam: Present: atraumatic, normocephalic - Eye Eye exam: Present: normal appearance, PERRL - Respiratory Respiratory exam: Present: normal lung sounds bilaterally. Absent: respiratory distress - Cardiovascular Cardiovascular Exam: Present: regular rate, normal rhythm, normal heart sounds - GI/Abdominal GI/Abdominal exam: Present: soft. Absent: distended, tenderness - Neurological Exam Neurological exam: Present: alert, other (Oriented to person only) - Psychiatric Psychiatric exam: Present: normal affect, normal mood - Skin Skin exam: Present: warm, dry, intact, normal color ED Course Vital Signs 04/07/22 04/07/22 04/07/22 11:12 13:25 14:10 Temperature 97.5 F L Pulse Rate 86 80 Respiratory 16 14 Rate Blood Pressure 144/70 92/68 [Left] O2 Sat by Pulse 99 98 Oximetry 04/07/22 04/07/22 16:55 18:15 Temperature Pulse Rate 80 60 Respiratory 18 18 Rate Blood Pressure 133/51 135/47 [Left] O2 Sat by Pulse 97 99 Oximetry ED Medical Decision Making - Lab Data Result diagrams: 04/07/22 12:04 04/07/22 17:58 - Medical Decision Making Patient with advanced dementia brought in by EMS for evaluation. On initial assessment patient appears calm however exhibits classic signs of dementia. CBC and CMP grossly unremarkable. Her vital signs are stable. She has no complaints. No indication for admission at this time. Patient stable for discharge home. Critical care attestation.: If time is entered above; I have spent that time in minutes in the direct care of this critically ill patient, excluding procedure time. ED Disposition Clinical Impression: Advanced dementia Disposition: 01 HOME / SELF CARE / HOMELESS Is pt being admited?: No Condition: Stable Instructions: Dementia, [id number] Additional Instructions: Please follow-up with your primary doctor as needed. You may return if symptoms worsen. Time of Disposition: 18:46
[2022-04-07 13:11] LABS: Basophils % (Auto) 0.6 % (0.0-1.8); Eosinophils % (Auto) 0.5 % (0.0-4.3); Hematocrit 34.4 % (30.3-42.9); Hemoglobin 11.4 gm/dl (10.1-14.3); Lymphocytes # (Auto) 0.9 K/mm3 (1.2-5.4); Lymphocytes % (Auto) 15.3 % (13.4-35.0); Mean Corpuscular HGB Conc 33 % (30-34); Mean Corpuscular Volume 88 fl (79-97); Monocytes # (Auto) 0.5 K/mm3 (0.0-0.8); Monocytes % (Auto) 8.7 % (0.0-7.3); Platelet Count 104 K/mm3 (140-440); Red Blood Count 3.92 M/mm3 (3.65-5.03); Red Cell Distribution Width 15.1 % (13.2-15.2)
[2022-04-07 18:26] LABS: Alanine Aminotransferase 45 units/L (7-56); Albumin 3.6 g/dL (3.9-5); Blood Urea Nitrogen 26 mg/dL (7-17); Calcium 9.1 mg/dL (8.4-10.2); Hemolysis Index 8
[2022-04-07 18:34] LABS: BUN/Creatinine Ratio 37
[2022-04-08 12:47] VITALS: BP 187/88
== END 2022-04-08 12:49 | disposition home or self-care (01) ==
LOC: ED 11:06
DX: F03.90 Unspecified dementia, unspecified severity, without behavioral disturbance, psychotic disturbance, mood disturbance, and anxiety (principal); I10 Essential (primary) hypertension; E11.9 Type 2 diabetes mellitus without complications; Z91.040 Latex allergy status; Z88.6 Allergy status to analgesic agent
CPT/HCPCS: 36415; 80053; 85025; 99283